=== PATIENT | female | born 1955 | race African-American/Black ===

== ENCOUNTER 2018-02-21 17:09 | Inpatient (IN) | payer OTHER ==
[2018-02-21] MEDS ORDERED: ONDANSETRON 4 MG/2 ML VIAL ONE (17:20)
--- NOTE | 2018-02-21 17:40 | PDOC ---
Attending Attestation - HPI HPI: 02/21/18 18:48 The patient is a 62 year old female, with a significant PMH of a recent GA, NSTEMI, asthma and HTN, who presents via ambulance to the emergency department of a witnessed seizure activity by family members this morning. The patient states she took her nebulizer treatment today because she felt SOB and went outside to smoke a cigarette. Shortly after smoking, the patient's family witness patient shaking uncontrollably on the couch with frothy drool for about 2 mins. Family reports patient did not return to normal baseline and came to the ER for further evaluation. She is currently vomiting, confused and not able to answer questions. The patient mentions she came in Oct 25 for similar presentation and had a GA. The patient denies chest pain, headache and dizziness. Denies fever, chills, nausea, vomit, diarrhea and constipation. Denies dysuria, frequency, urgency and hematuria. Allergies: NKDA Past surgical history: None reported Social history: Admits tobacco use PCP: None reported Documentation prepared by Fly Liu, acting as medical technicians for Vicenta Galvan MD. - Physicial Exam PE: 02/21/18 18:48 GENERAL: +Confused.Well developed, well nourished. No acute distress. HEENT: Normocephalic, atraumatic. PERRLA, EOMI. No conjunctival pallor. Sclera are non- icteric. Moist mucous membranes. Oropharynx is clear. NECK: Supple. Full ROM. No JVD. Carotid pulses 2+ and symmetric, without bruits. No thyromegaly. No lymphadenopathy. CARDIOVASCULAR: +Sinus tachycardia. No murmurs, rubs, or gallops. Distal pulses are 2+ and symmetric. PULMONARY: No evidence of respiratory distress. Lungs clear to auscultation bilaterally. No wheezing, rales or rhonchi. ABDOMINAL: +Protruding abdomen but Soft. Non-tender. No rebound or guarding. No organomegaly. Normoactive bowel sounds. MUSCULOSKELETAL Normal range of motion at all joints. No bony deformities or tenderness. No CVA tenderness. EXTREMITIES: No pitting edema No cyanosis. No clubbing. No edema. No calf tenderness. SKIN: Warm and dry. Normal capillary refill. No rashes. No jaundice. NEUROLOGICAL: +Confused. Cranial nerves 2-12 intact. No deficits to light touch and temperature in face, upper extremities and lower extremities. PSYCHIATRIC: Cooperative. Good eye contact. Appropriate mood and affect. Documentation prepared by Fly Liu, acting as medical technicians for Vicenta Galvan MD. <Fly Liu - Last Filed: 02/21/18 18:47> - Resident Resident Name: Javad Craig - ED Attending Attestation I have performed the following: I have examined & evaluated the patient, The case was reviewed & discussed with the resident, I agree w/resident's findings & plan, Exceptions are as noted - Medical Decision Making 02/21/18 19:19 62-year-old female who had a witnessed tonic-clonic seizure at home. Brought in by ambulance with altered mental status and actively vomiting. Past medical history significant for COPD, along time tobacco use, hypertension , and STEMI in October 2017 10/26/2017. She was admitted for altered mental status and found to have an elevated troponin. At that time, an echo showed normal LV function with ejection fraction 60-65%. She also had a brain MRI that showed moderate atrophy and bilateral cerebellar chronic lacunar infarcts ct scan of head today revealed No shift, no mass, mild atrophy, no acute infarct or bleed pt can answer simple questions,moves all extremities,has no facial droop but appears confused -she is afebrile,pulse ox =92% on room air -she has been hypertensive in range 160/78 -first ekg sinus tachy @ 102 bpm , trop is only 0.05 cbc is unremarkable lactic elevated at 7 Drug tox screen positive for only marijuana 02/21/18 19:22 02/21/18 19:28 pt loaded w johanne and admitted to telemetry 02/21/18 20:02 <Vicenta Galvan - Last Filed: 02/21/18 20:02>
[2018-02-21] MEDS ORDERED: SODIUM CHLORIDE 0.9% 500 ML INFUS.BAG IV ONE ×2 (17:51→18:55)
[2018-02-21] MEDS ORDERED: ONDANSETRON 4 MG/2 ML VIAL IVPUSH ONE (17:51)
[2018-02-21 18:10] LABS: BASO % 0.5 % (0-2.0); EOS % 1.1 % (0-4.5); HEMOGLOBIN 14.3 GM/dL (10.7-15.3); LYMPH % 46.6 % (8-40); MCH 28.3 pg (25.7-33.7); MCHC 32.4 g/dl (32.0-36.0); MEAN CELL VOLUME 87.5 fl (80-96); MEAN PLT VOLUME 7.7 fl (7.5-11.1); MONO % 9.7 % (3.8-10.2); NEUT % 42.1 % (42.8-82.8); PLATELET COUNT 239 K/MM3 (134-434); RBC 5.03 M/mm3 (3.60-5.2); RDW 14.8 % (11.6-15.6); WHITE BLOOD COUNT 6.5 K/mm3 (4.0-10.0)
[2018-02-21 18:14] LABS: URINE APPEARANCE SLCLOUDY; URINE BILIRUBIN NEGATIVE (<2.0 mg/dL); URINE COLOR LTYELLOW; URINE GLUCOSE (UA) NEGATIVE (NEGATIVE); URINE KETONE NEGATIVE (NEGATIVE); URINE LEUK ESTERASE NEGATIVE (NEGATIVE); URINE NITRITE NEGATIVE (NEGATIVE); URINE PROTEIN 2+ (NEGATIVE); URINE UROBILINOGEN NEGATIVE mg/dL (0.2-1.0)
[2018-02-21 18:28] LABS: EPI CELLS RARE /HPF (FEW); URINE BACTERIA MANY /hpf (NONE SEEN); URINE HYALINE CAST 10 /lpf; URINE MUCUS RARE
[2018-02-21 18:28] LABS: INR 1.1 (0.83-1.09)
[2018-02-21 18:34] LABS: COCAINE, UR NEGATIVE ng/ml (CUTOFF=300); METHADONE, UR NEGATIVE ng/ml (CUTOFF=300); OPIATES, URI NEGATIVE ng/ml (CUTOFF=300); PHENCYCLIDINE,URINE NEGATIVE ng/ml (CUTOFF=25); URINE AMPHETAMINES NEGATIVE ng/ml (CUTOFF=500); URINE BARBITURATES NEGATIVE ng/ml (CUTOFF=200); URINE BENZODIAZEPINES NEGATIVE ng/ml (CUTOFF=200)
[2018-02-21 18:50] LABS: ALBUMIN 3.8 g/dl (3.4-5.0); ALK PHOS 72 U/L (45-117); ANION GAP 13 MMOL/L (8-16); BILIRUBIN,TOTAL 0.3 mg/dL (0.2-1); BLOOD UREA NITROGEN 12 mg/dL (7-18); CALCIUM 8.8 mg/dL (8.5-10.1); CHLORIDE 108 mmol/L (98-107); CO2 19 mmol/L (21-32); GLUCOSE,RANDOM 117 mg/dL (74-106); LIPASE 103 U/L (73-393); MAGNESIUM 1.9 mg/dL (1.8-2.4); N-TERMINAL BNP 225.8 pg/ml (5-125); PHOSPHOROUS 3.2 mg/dL (2.5-4.9); POTASSIUM 3.8 mmol/L (3.5-5.1); SGOT/AST 16 U/L (15-37); SGPT/ALT 13 U/L (13-61); SODIUM 140 mmol/L (136-145); TOT PROT 7.7 g/dl (6.4-8.2)
--- NOTE | 2018-02-21 19:02 | PDOC ---
History of Present Illness - General Chief Complaint: Seizure Stated Complaint: SEIZURE Time Seen by Provider: 02/21/18 17:32 History Source: Patient, EMS, Family (Daughter at bedside after initial eval), Old Records Exam Limitations: Clinical Condition - History of Present Illness Initial Comments: HPI: 62 y/o female BIBEMS as ALS patient with altered mental status. EMS reports the pt had a witnessed two minute tonic-clonic seizure prior to unit arrival. Crew found the pt unresponsive but demonstrated localized withdrawal from painful stimuli. Pt was breathing spontaneously. Vitals were remarkable for hypertension and tachycardia. EKG was unremarkable for ectopy. BGL was within normal limits. Pt had a [place] several months ago. Unsure if pt is anticoagulated. No history of seizures. No family present at bedside. IV access established enroute. No medications administered. Pt met in resuscitation room. Pt vomiting but initially would not answer questions. Then only complained of coldness but would not answer direct questions. ABCs intact. Vitals obtained. Second IV access established and labs drawn. EKG obtained. Pt taken to CT scan for CT of Head stroke protocoled. MD and RN accompanied. After returning from radiology department, pts daughter and son-in-law were present in the department. Daughter reported her mother looked unwell all morning. This afternoon used a breathing treatment, stepped outside to smoke a cigarette, then came back into the house and sat on the couch. Daughter observed the pt loose muscle tone and began generalized shaking. Noted foaming at the mouth. Episode lasted approx. 2 min. Did not observe if mother lost control of bowel or bladder. Admitted here for similar symptoms on 10/26/2017 for similar symptoms, but family states no seizure-like activity at that time. Discharged with diagnosis of NSTEMI. PCP: Dr. Pete Bridges Hx: - EtOH: Family Denies - Tobacco: Family Endorses Current Smoker - Street Drugs: Family Denies Medical Hx: -CAD s/p NSTEMI (10/2017) - Asthma - DM - HTN Past History - Past Medical History Allergies/Adverse Reactions: Allergies Allergy/AdvReac Type Severity Reaction Status Date / Time No Known Allergies Allergy Verified 10/26/17 12:16 Home Medications: Ambulatory Orders Albuterol Sulfate Inhaler - [Ventolin HFA Inhaler -] 1 - 2 inh PO QID PRN #1 inhaler 10/31/17 Amlodipine Besylate [Norvasc -] 10 mg PO DAILY #30 tablet 10/31/17 Aspirin Coated [Ecotrin -] 81 mg PO DAILY #30 tablet.ec 10/31/17 Fexofenadine HCl [Toyin Allergy] 180 mg PO DAILY #30 tablet 10/31/17 Metoprolol Succinate [Toprol XL -] 25 mg PO DAILY #30 tab.sr.24h 10/31/17 Montelukast Sodium [Singulair] 10 mg PO DAILY #30 tablet 10/31/17 Potassium Chloride [K-Dur -] 20 meq PO DAILY 30 Days #30 tablet.er 10/31/17 levoFLOXacin [Levaquin -] 500 mg PO DAILY@0600 #2 tablet 10/31/17 predniSONE [Deltasone -] 30 mg PO DAILY #9 tablet 10/31/17 Asthma: Yes Cardiac Disorders: Yes (?heart murmur as child) COPD: No HTN: Yes - Suicide/Smoking/Psychosocial Hx Smoking History: Unknown if ever smoked Have you smoked in the past 12 months: No Number of Cigarettes Smoked Daily: 10 Information on smoking cessation initiated: No 'Breaking Loose' booklet given: 10/26/17 Hx Alcohol Use: No Drug/Substance Use Hx: No Substance Use Type: Marijuana Hx Substance Use Treatment: No (denies) Review of Systems - Review of Systems Able to Perform ROS?: No (Pt condition) *Physical Exam - Vital Signs Last Vital Signs Temp Pulse Resp BP Pulse Ox 98.1 F 92 H 17 173/103 H 96 02/21/18 17:10 02/21/18 18:54 02/21/18 18:54 02/21/18 18:54 02/21/18 18:54 - Physical Exam Comments: Constitutional: Well-developed, well-nourished, obese female alert to verbal but disoriented and unable to answer questions. Found on EMS stretcher and transferred to hospital stretcher. Head: Normocephalic. No obvious external signs of trauma. Eyes: Pupils 2mm and PERRL bilaterally. Sclerae white. NOSE: No nasal discharge. Cardiovascular: Tachycardic rate and regular rhythm. No murmur, rubs, clicks, or gallops. Peripheral pulses: Radial pulses full. Respiratory: Breathing unlabored. Equal chest rise and fall. Clear to auscultation bilaterally. No stridor, no wheezing, no rhonchi. Gastrointestinal: abdomen is soft, non-tender, non-distended. No overlying skin lesions or obvious signs of trauma. Neuro: Eyes open to verbal. Able to provide name and location but otherwise disoriented. Moving all four extremities spontaneously. Able to sit up in bed to vomit. No facial asymmetry. Moving all four extremities spontaneously. Unable to assess strength secondary to pt condition. Skin: Warm, dry, and intact. No bruising, rashes, or other lesions. Moderate Sedation - Procedure Monitoring Vital Signs: Procedure Monitoring Vital Signs Temperature 98.1 F 02/21/18 17:10 Pulse Rate 92 H 02/21/18 18:54 Respiratory Rate 17 02/21/18 18:54 Blood Pressure 173/103 H 02/21/18 18:54 O2 Sat by Pulse Oximetry (%) 96 02/21/18 18:54 ED Treatment Course - LABORATORY CBC & Chemistry Diagram: 02/21/18 17:56 02/21/18 17:56 - ADDITIONAL ORDERS Additional order review: Laboratory Results 02/21/18 02/21/18 02/21/18 18:05 18:05 18:00 PT with INR INR PTT (Actin FS) Sodium Potassium Chloride Carbon Dioxide Anion Gap BUN Creatinine Creat Clearance w eGFR Random Glucose Lactic Acid 7.7 H* Calcium Phosphorus Magnesium Total Bilirubin AST ALT Alkaline Phosphatase Creatine Kinase Troponin I B-Natriuretic Peptide Total Protein Albumin Lipase TSH Urine Color Ltyellow Urine Appearance Slcloudy Urine pH 5.0 Ur Specific [place] 1.015 Urine Protein 2+ H Urine Glucose (UA) Negative Urine Ketones Negative Urine Blood 2+ H Urine Nitrite Negative Urine Bilirubin Negative Urine Urobilinogen Negative Ur Leukocyte Esterase Negative Urine WBC (Auto) 2 Urine RBC (Auto) 1 Ur Epithelial Cells Rare Urine Bacteria Many Hyaline Casts 10 Urine Mucus Rare Salicylates Opiates Screen Negative Methadone Screen Negative Barbiturate Screen Negative Phencyclidine Screen Negative Ur Amphetamines Screen Negative MDMA (Ecstasy) Screen Negative Benzodiazepines Screen Negative Cocaine Screen Negative U Marijuana (THC) Screen Positive A* 02/21/18 02/21/18 02/21/18 17:56 17:56 17:56 PT with INR 13.00 INR 1.10 H PTT (Actin FS) Sodium 140 Potassium 3.8 Chloride 108 H Carbon Dioxide 19 L Anion Gap 13 BUN 12 Creatinine 1.0 Creat Clearance w eGFR 56.18 Random Glucose 117 H Lactic Acid Calcium 8.8 Phosphorus 3.2 Magnesium 1.9 Total Bilirubin 0.3 AST 16 ALT 13 Alkaline Phosphatase 72 Creatine Kinase 146 Troponin I 0.05 B-Natriuretic Peptide 225.8 H Total Protein 7.7 Albumin 3.8 Lipase 103 TSH 0.96 Urine Color Urine Appearance Urine pH Ur Specific [place] Urine Protein Urine Glucose (UA) Urine Ketones Urine Blood Urine Nitrite Urine Bilirubin Urine Urobilinogen Ur Leukocyte Esterase Urine WBC (Auto) Urine RBC (Auto) Ur Epithelial Cells Urine Bacteria Hyaline Casts Urine Mucus Salicylates 2.1 L Opiates Screen Methadone Screen Barbiturate Screen Phencyclidine Screen Ur Amphetamines Screen MDMA (Ecstasy) Screen Benzodiazepines Screen Cocaine Screen U Marijuana (THC) Screen 02/21/18 17:56 PT with INR INR PTT (Actin FS) 27.1 Sodium Potassium Chloride Carbon Dioxide Anion Gap BUN Creatinine Creat Clearance w eGFR Random Glucose Lactic Acid Calcium Phosphorus Magnesium Total Bilirubin AST ALT Alkaline Phosphatase Creatine Kinase Troponin I B-Natriuretic Peptide Total Protein Albumin Lipase TSH Urine Color Urine Appearance Urine pH Ur Specific [place] Urine Protein Urine Glucose (UA) Urine Ketones Urine Blood Urine Nitrite Urine Bilirubin Urine Urobilinogen Ur Leukocyte Esterase Urine WBC (Auto) Urine RBC (Auto) Ur Epithelial Cells Urine Bacteria Hyaline Casts Urine Mucus Salicylates Opiates Screen Methadone Screen Barbiturate Screen Phencyclidine Screen Ur Amphetamines Screen MDMA (Ecstasy) Screen Benzodiazepines Screen Cocaine Screen U Marijuana (THC) Screen 02/21/18 17:56 RBC 5.03 MCV 87.5 MCHC 32.4 RDW 14.8 MPV 7.7 Neutrophils % 42.1 L Lymphocytes % 46.6 H Monocytes % 9.7 Eosinophils % 1.1 D Basophils % 0.5 - RADIOLOGY Radiology Studies Ordered: Category Date Time Status HEAD CT (STROKE) [CT] Stat CT Scan 02/21/18 17:35 Taken CHEST X-RAY PORTABLE* [RAD] Stat Radiology 02/21/18 17:50 Taken - Medications Given in the ED: ED Medications Discontinued Medications Generic Name Dose Route Start Last Admin Trade Name Freq PRN Reason Stop Dose Admin Ondansetron HCl 4 mg 02/21/18 17:51 02/21/18 18:17 Zofran Injection IVPUSH 02/21/18 17:52 4 mg ONCE ONE Administration Sodium Chloride 1,000 ml 02/21/18 17:51 02/21/18 18:17 Normal Saline - IV 02/21/18 17:52 1,000 ml ONCE ONE Administration Medical Decision Making - Medical Decision Making *Reviewed vital signs, nursing notes, and prior visit documentation (if available). 62 y/o female presenting with altered mental status after witnessed tonic- clonic seizure activity. Has not returned to normal mental baseline, but intact ABCs. No h/o seizures. Family reports similar altered mental status episode in October 2017 when pt was disagnosed with NSTEMI. EKG revealed new flattened T waves in II and inverted T waves in III when compared to previous EKG dated 06/2017. Troponin and CK not elevated. Low suspicion for ACS. No appreciable neurologic deficits, but exam limited secondary to pt condition. CT of head unremarkable for acute intracranial process. Low suspicion for CVA. Family denies illicit drug use, but UDS positive for marijuana. CBC unremarkable for leukocytosis or anemia. CMP unremarkable for electrolyte derangement. Lactic acid elevated; possibly secondary to seizure activity. Will hydrate with IVFB and load with a gram of Keppra. Will admit for persistent altered mental status and new onset seizure in adult. 18:16 Telephone conversation with [facility]. CT unremarkable for acute process. 19:20 Telephone consultation with resident Dr. Trujillo. Verbally appraised of the pts HPI, ED course, and current plan of management. No additional orders requested. Pt to be admitted to telemetry on inpatient status by Dr. Brian. *DC/Admit/Observation/Transfer Diagnosis at time of Disposition: New onset seizure Altered mental status, unspecified Qualifiers: Altered mental status type: disorientation Qualified Code(s): R41.0 - Disorientation, unspecified - Discharge Dispostion Decision to Admit order: Yes - Referrals - Patient Instructions - Post Discharge Activity
[2018-02-21] MEDS ORDERED: levETIRAcetam 500 MG/5 ML INJECTION VIAL IVPB ONE ×2 (19:08→19:13)
[2018-02-21 19:21] LABS: ACETONE SERUM NEGATIVE (NEGATIVE)
--- NOTE | 2018-02-21 19:43 | PN ---
Teaching Attending Note Name of Resident: Omar Trujillo ATTENDING PHYSICIAN STATEMENT I saw and evaluated the patient. I reviewed the resident's note and discussed the case with the resident. I agree with the resident's findings and plan as documented. SUBJECTIVE: Patient is a 62 year old woman with a PMH of a recent NSTEMI, asthma and HTN, who presents via ambulance to the ER after a witnessed seizure activity by family members this morning. The patient states she took her nebulizer treatment today because she felt SOB and went outside to smoke a cigarette. Shortly after smoking, the patient's family witness patient shaking uncontrollably on the couch with frothy drool for about 2 mins. Family reports patient did not return to normal baseline and came to the ER for further evaluation. She is currently vomiting, confused and not able to answer questions. The patient mentions she came in Oct 25 for similar presentation and had a [place]. The patient denies chest pain, headache, dizziness, fever, chills , nausea, vomit, diarrhea or dysuria. OBJECTIVE: Somnolent but arousable Vital Signs Period Temp Pulse Resp BP Sys/[place] Pulse Ox Last 24 Hr 98.1 F 92-92 17-18 167-173/98-103 92-96 HEENT: No Jaundice, eye redness or discharge, PERRLA, EOMI. Normocephalic, atraumatic. Impaired vision; External ears are normal. No nasal discharge. Neck: Supple, nontender. No palpable adenopathy or thyromegaly. No JVD Chest: Good effort. Clear to auscultation and percussion. Heart: Regular. No S3, rub or murmur Abdomen: Not distended, soft, nontender and no HSM. No rebound or guarding. Normoactive bowel sounds. Ext: Peripheral pulses intact. No leg edema. Skin: Warm and dry. No petechiae, rash or ecchymosis. Neuro: Somnolent but arousable. Oriented person and place. CN 2-12 grossly intact. Sensation grossly intact in all four extremities and DTR are symmetric. Home Medications Medication Instructions Recorded Albuterol Sulfate Inhaler - 1 - 2 inh PO QID PRN #1 inhaler 10/31/17 [Ventolin HFA Inhaler -] Amlodipine Besylate [Norvasc -] 10 mg PO DAILY #30 tablet 10/31/17 Aspirin Coated [Ecotrin -] 81 mg PO DAILY #30 tablet.ec 10/31/17 Fexofenadine HCl [Toyin Allergy] 180 mg PO DAILY #30 tablet 10/31/17 Metoprolol Succinate [Toprol XL -] 25 mg PO DAILY #30 tab.sr.24h 10/31/17 Montelukast Sodium [Singulair] 10 mg PO DAILY #30 tablet 10/31/17 Potassium Chloride [K-Dur -] 20 meq PO DAILY 30 Days #30 10/31/17 tablet.er levoFLOXacin [Levaquin -] 500 mg PO DAILY@0600 #2 tablet 10/31/17 predniSONE [Deltasone -] 30 mg PO DAILY #9 tablet 10/31/17 Abnormal Lab Results 02/21/18 02/21/18 02/21/18 17:56 17:56 17:56 Neutrophils % 42.1 L Lymphocytes % 46.6 H INR 1.10 H Chloride Carbon Dioxide Random Glucose Lactic Acid B-Natriuretic Peptide Urine Protein Urine Blood Salicylates Acetaminophen < 2.0 L U Marijuana (THC) Screen Acetone, Qual Negative L 02/21/18 02/21/18 02/21/18 17:56 18:00 18:05 Neutrophils % Lymphocytes % INR Chloride 108 H Carbon Dioxide 19 L Random Glucose 117 H Lactic Acid 7.7 H* B-Natriuretic Peptide 225.8 H Urine Protein 2+ H Urine Blood 2+ H Salicylates 2.1 L Acetaminophen U Marijuana (THC) Screen Acetone, Qual 02/21/18 18:05 Neutrophils % Lymphocytes % INR Chloride Carbon Dioxide Random Glucose Lactic Acid B-Natriuretic Peptide Urine Protein Urine Blood Salicylates Acetaminophen U Marijuana (THC) Screen Positive A* Acetone, Qual ASSESSMENT AND PLAN: 1. New onset seizure/AMS - Etiology unclear. Had marijuana in her urine. Started on Keppra in the ER and head CT is negative. EKG showed sinus tachycardia but no significant ST-T changes. Needs a spinal tap, EEG and neurology consult. Will continue neurochecks, seizure precautions, and fall precautions. Got 2 liters bolus of NS in the ER. Continue IV NS and trend lactic acid. For uncontrolled hypertension, will restart home antihypertensive drugs to ultimately attain normotension. Nonpharmacologic measures to control hypertension like weight loss, salt restriction and exercise discussed. 2. Tobacco Use We will provide patient all the necessary assistance to facilitate smoking cessation and prescribe Nicotine patch. 3. DVT prophylaxis - Lovenox 40 mg SQ q 24 hours. 4. Advance directives - Full code
--- NOTE | 2018-02-21 19:51 | HP ---
CHIEF COMPLAINT: PCP: Dr. Freeman HISTORY OF PRESENT ILLNESS: Pt lethargic. Hx obtained from EMR, ED notes, and family members 62 yo F w/ PMH of a recent NSTEMI (10/2017), asthma, COPD, and HTN, p/w witnessed seizure activity by family members this morning. The patient states she took her nebulizer treatment today because she felt SOB and went outside to smoke a cigarette. Shortly after smoking, the patient's family witnessed patient having eye twitching, leg kicking, and shaking uncontrollably on the couch with frothy drool for about 2 mins. No tongue biting or incontinence was noted. Family reports patient did not return to normal baseline and came to the ER for further evaluation. She is currently vomiting, confused and not able to answer questions. Pt was noted to have similar sxs of confusion back in Oct 25 when she was admitted for NSTEMI. At that time, an echo showed normal LV function with ejection fraction 60-65%. She also had a brain MRI that showed moderate atrophy and bilateral cerebellar chronic lacunar infarcts. Family denies pt having hx of seizures, recent illnesses, herbal supplements, cp, headache, dizziness, fever , chills, n/v/d or urinary sxs and states Pt has other white been in her usual state of health. Of note, pt has trouble seeing w/o glasses and has been found in the past to take the wrong meds or too many meds by mistake. Family does not know pt med list but will try to obtain it. ER course was notable for: (1) 2L NS, 1g IV keppra, zofran (2) Head CT no acute pathology (3)Drug tox screen positive for only marijuana hypertensive in range 180s/100s, EKG revealed new flattened T waves in II and inverted T waves in III when compared to previous EKG dated 10/26/2017. , trop is only 0.05, Lactic 7.7 Recent Travel: PAST MEDICAL HISTORY: 15 yr ago "blood clot" in foot after a foot frx? 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 Family History: Allergies No Known Allergies Allergy (Verified 10/26/17 12:16) HOME MEDICATIONS: Home Medications Medication Instructions Recorded Albuterol Sulfate Inhaler - 1 - 2 inh PO QID PRN #1 inhaler 10/31/17 [Ventolin HFA Inhaler -] Amlodipine Besylate [Norvasc -] 10 mg PO DAILY #30 tablet 10/31/17 Aspirin Coated [Ecotrin -] 81 mg PO DAILY #30 tablet.ec 10/31/17 Fexofenadine HCl [Toyin Allergy] 180 mg PO DAILY #30 tablet 10/31/17 Metoprolol Succinate [Toprol XL -] 25 mg PO DAILY #30 tab.sr.24h 10/31/17 Montelukast Sodium [Singulair] 10 mg PO DAILY #30 tablet 10/31/17 Potassium Chloride [K-Dur -] 20 meq PO DAILY 30 Days #30 10/31/17 tablet.er levoFLOXacin [Levaquin -] 500 mg PO DAILY@0600 #2 tablet 10/31/17 predniSONE [Deltasone -] 30 mg PO DAILY #9 tablet 10/31/17 REVIEW OF SYSTEMS as per HPI PHYSICAL EXAMINATION Vital Signs - 24 hr 02/21/18 02/21/18 02/21/18 17:10 18:54 19:20 Temperature 98.1 F 99.2 F Pulse Rate 92 H Pulse Rate [ 92 H 103 H Left Apical] Respiratory 18 17 22 H Rate Blood Pressure 167/98 Blood Pressure 173/103 H 180/104 H [Right Arm] O2 Sat by Pulse 92 L 96 98 Oximetry (%) GENERAL: Well-developed, well-nourished, obese female alert to verbal. appears confused but oriented x 2 HEAD: NCAT EYES: Pupils equal, round and reactive to light, extraocular movements intact, sclera anicteric, conjunctiva clear. No lid lag. EARS, NOSE, THROAT: Ears normal, nares patent, oropharynx clear without exudates. MMM NECK: Normal range of motion, supple without lymphadenopathy, JVD, or masses. LUNGS: CTAB HEART: Tachycardic rate and regular rhythm, normal S1 and S2 without m/r/g ABDOMEN: Soft, NTND, normoactive bowel sounds, no guarding, no rebound, no masses. MUSCULOSKELETAL: Normal range of motion at all joints. No bony deformities or tenderness. UPPER EXTREMITIES: 2+ pulses, warm, well-perfused. No cyanosis. No clubbing. No peripheral edema. LOWER EXTREMITIES: 2+ pulses, warm, well-perfused. No calf tenderness. No peripheral edema. NEUROLOGICAL: Eyes open to verbal. Able to provide name and location but otherwise disoriented. Moving all four extremities spontaneously. No facial asymmetry. Moving all four extremities spontaneously. Unable to assess strength secondary to pt condition. SKIN: Warm, dry, normal turgor, no rashes or lesions noted, normal capillary refill. Laboratory Results - last 24 hr 02/21/18 02/21/18 02/21/18 17:56 17:56 17:56 WBC 6.5 RBC 5.03 Hgb 14.3 Hct 44.0 MCV 87.5 MCH 28.3 MCHC 32.4 RDW 14.8 Plt Count 239 MPV 7.7 Absolute Neuts (auto) 2.7 Neutrophils % 42.1 L Lymphocytes % 46.6 H Monocytes % 9.7 Eosinophils % 1.1 D Basophils % 0.5 Nucleated RBC % 0 PT with INR INR PTT (Actin FS) 27.1 Sodium Potassium Chloride Carbon Dioxide Anion Gap BUN Creatinine Creat Clearance w eGFR Random Glucose Lactic Acid Calcium Phosphorus Magnesium Total Bilirubin AST ALT Alkaline Phosphatase Creatine Kinase 146 Troponin I 0.05 B-Natriuretic Peptide Total Protein Albumin Lipase TSH Urine Color Urine Appearance Urine pH Ur Specific [place] Urine Protein Urine Glucose (UA) Urine Ketones Urine Blood Urine Nitrite Urine Bilirubin Urine Urobilinogen Ur Leukocyte Esterase Urine WBC (Auto) Urine RBC (Auto) Ur Epithelial Cells Urine Bacteria Hyaline Casts Urine Mucus Salicylates Opiates Screen Methadone Screen Acetaminophen < 2.0 L Barbiturate Screen Phencyclidine Screen Ur Amphetamines Screen MDMA (Ecstasy) Screen Benzodiazepines Screen Cocaine Screen U Marijuana (THC) Screen Alcohol, Quantitative < 3.0 Acetone, Qual Negative L Blood Type Antibody Screen 02/21/18 02/21/18 02/21/18 17:56 17:56 17:56 WBC RBC Hgb Hct MCV MCH MCHC RDW Plt Count MPV Absolute Neuts (auto) Neutrophils % Lymphocytes % Monocytes % Eosinophils % Basophils % Nucleated RBC % PT with INR 13.00 INR 1.10 H PTT (Actin FS) Sodium 140 Potassium 3.8 Chloride 108 H Carbon Dioxide 19 L Anion Gap 13 BUN 12 Creatinine 1.0 Creat Clearance w eGFR 56.18 Random Glucose 117 H Lactic Acid Calcium 8.8 Phosphorus 3.2 Magnesium 1.9 Total Bilirubin 0.3 AST 16 ALT 13 Alkaline Phosphatase 72 Creatine Kinase Troponin I B-Natriuretic Peptide 225.8 H Total Protein 7.7 Albumin 3.8 Lipase 103 TSH 0.96 Urine Color Urine Appearance Urine pH Ur Specific [place] Urine Protein Urine Glucose (UA) Urine Ketones Urine Blood Urine Nitrite Urine Bilirubin Urine Urobilinogen Ur Leukocyte Esterase Urine WBC (Auto) Urine RBC (Auto) Ur Epithelial Cells Urine Bacteria Hyaline Casts Urine Mucus Salicylates 2.1 L Opiates Screen Methadone Screen Acetaminophen Barbiturate Screen Phencyclidine Screen Ur Amphetamines Screen MDMA (Ecstasy) Screen Benzodiazepines Screen Cocaine Screen U Marijuana (THC) Screen Alcohol, Quantitative Acetone, Qual Blood Type AB POSITIVE Antibody Screen Negative 02/21/18 02/21/18 02/21/18 18:00 18:05 18:05 WBC RBC Hgb Hct MCV MCH MCHC RDW Plt Count MPV Absolute Neuts (auto) Neutrophils % Lymphocytes % Monocytes % Eosinophils % Basophils % Nucleated RBC % PT with INR INR PTT (Actin FS) Sodium Potassium Chloride Carbon Dioxide Anion Gap BUN Creatinine Creat Clearance w eGFR Random Glucose Lactic Acid 7.7 H* Calcium Phosphorus Magnesium Total Bilirubin AST ALT Alkaline Phosphatase Creatine Kinase Troponin I B-Natriuretic Peptide Total Protein Albumin Lipase TSH Urine Color Ltyellow Urine Appearance Slcloudy Urine pH 5.0 Ur Specific [place] 1.015 Urine Protein 2+ H Urine Glucose (UA) Negative Urine Ketones Negative Urine Blood 2+ H Urine Nitrite Negative Urine Bilirubin Negative Urine Urobilinogen Negative Ur Leukocyte Esterase Negative Urine WBC (Auto) 2 Urine RBC (Auto) 1 Ur Epithelial Cells Rare Urine Bacteria Many Hyaline Casts 10 Urine Mucus Rare Salicylates Opiates Screen Negative Methadone Screen Negative Acetaminophen Barbiturate Screen Negative Phencyclidine Screen Negative Ur Amphetamines Screen Negative MDMA (Ecstasy) Screen Negative Benzodiazepines Screen Negative Cocaine Screen Negative U Marijuana (THC) Screen Positive A* Alcohol, Quantitative Acetone, Qual Blood Type Antibody Screen , ASSESSMENT/PLAN: 62 yo F w/ PMH of a recent NSTEMI (10/2017), asthma, COPD, and HTN, p/w witnessed new onset seizure activity by family members this morning. New onset seizure/AMS - Etiology unclear. head CT is negative. U tox screen positive for only marijuana s/p 2L NS, 1g IV keppra, zofran in the ED EKG revealed new flattened T waves in II and inverted T waves in III when compared to previous EKG dated 10/26/2017. trop is only 0.05, will rpt trop to r/o ACS Lactic 7.7 likely 2/2 seizure trend lactic acid NS 75 cc/hr neurochecks, seizure precautions, and fall precautions neurology consult will likely need a spinal tap, EEG and MRI 500 keppra BID for now, will likely need adjustment will f/w neurology recs Family does not know pt med list but will try to obtain it. will need extensive med rec to r/o possible causes of seizure hypertensive in range 180s/100s - improving now 150s cont to moniotor will restart home antihypertensive drugs and when pt can tolerate PO restart home meds when meds are reconciled FEN NS 75 cc replete prn NPO DVT prophylaxis - Lovenox 40 mg SQ q 24 hours. Full code Dispo tele Visit type - Emergency Visit Emergency Visit: Yes ED Registration Date: 02/21/18 Care time: The patient presented to the Emergency Department on the above date and was hospitalized for further evaluation of their emergent condition. - New Patient This patient is new to me today: Yes Date on this admission: 02/22/18 - Critical Care Critical Care patient: No
[2018-02-21] MEDS ORDERED: INSULIN SLIDING SCALE (NOVOLOG) 1 VIAL SQ SCH (22:00)
[2018-02-21 22:13] VITALS: BMI 25.0
[2018-02-21] MEDS: SODIUM CHLORIDE 1,000 ML IV SCH (23:57)
[2018-02-21] MEDS: ENOXAPARIN NA (PORCINE) 40 MG/0.4 ML DISP.SYRIN SQ SCH (23:57)
[2018-02-22 06:50] LABS: BASO % 0.5 % (0-2.0); EOS % 0.5 % (0-4.5); HEMATOCRIT 38.5 % (32.4-45.2); HEMOGLOBIN 12.6 GM/dL (10.7-15.3); LYMPH % 43.8 % (8-40); MCH 28.5 pg (25.7-33.7); MCHC 32.7 g/dl (32.0-36.0); MEAN CELL VOLUME 86.9 fl (80-96); MEAN PLT VOLUME 7.7 fl (7.5-11.1); MONO % 7.8 % (3.8-10.2); NEUT % 47.4 % (42.8-82.8); PLATELET COUNT 214 K/MM3 (134-434); RBC 4.43 M/mm3 (3.60-5.2); RDW 14.8 % (11.6-15.6); WHITE BLOOD COUNT 9.3 K/mm3 (4.0-10.0)
[2018-02-22 07:19] LABS: ALBUMIN 3.2 g/dl (3.4-5.0); ALK PHOS 58 U/L (45-117); ANION GAP 8 MMOL/L (8-16); BILIRUBIN,TOTAL 0.5 mg/dL (0.2-1); BLOOD UREA NITROGEN 8 mg/dL (7-18); CALCIUM 8.3 mg/dL (8.5-10.1); CHLORIDE 110 mmol/L (98-107); CO2 23 mmol/L (21-32); CREATININE 0.8 mg/dL (0.55-1.3); GLUCOSE,RANDOM 87 mg/dL (74-106); MAGNESIUM 1.8 mg/dL (1.8-2.4); PHOSPHOROUS 3.8 mg/dL (2.5-4.9); POTASSIUM 3.5 mmol/L (3.5-5.1); SGOT/AST 16 U/L (15-37); SGPT/ALT 13 U/L (13-61); SODIUM 141 mmol/L (136-145); TOT PROT 6.6 g/dl (6.4-8.2)
--- NOTE | 2018-02-22 09:23 | PN ---
Physical Exam: SUBJECTIVE: Patient seen and examined at bedside this morning. She remembers coughing that led up to the syncopal episode, and waking up in bed after the episode. She denies headache, changes in vision, weakness in bilateral upper and lower extremities. OBJECTIVE: Vital Signs Period Temp Pulse Resp BP Sys/[place] Pulse Ox Last 24 Hr 98.1 F-99.2 F 90-105 17-22 134-180/67-104 92-100 GENERAL: The patient is awake, alert, and oriented to person, place, and time, in no acute distress. HEAD: Normal with no signs of trauma. EYES: PERRL, extraocular movements intact, sclera anicteric. ENT: Oropharynx clear without exudates, moist mucous membranes. NECK: Supple without lymphadenopathy LUNGS: Breath sounds equal, clear to auscultation bilaterally. No wheezes, no crackles. No accessory muscle use. HEART: Regular rate and rhythm, S1, S2 without murmur, rub or gallop. ABDOMEN: Soft, nontender, nondistended. Normoactive bowel sounds X4 quadrants. No guarding, no rebound tenderness. EXTREMITIES: 2+ radial and doralis pedis pulses b/l. Warm, well-perfused. No lower extremity edema b/l. NEUROLOGICAL: Cranial nerves II through XII grossly intact. Normal speech. Good muscle tone B/L. Strength 5/5 b/l upper and lower extremities. Sensation intact b/l upper and lower extremities. PSYCH: Mood and affect appropriate upon my encounter today. SKIN: Warm, dry. Laboratory Results - last 24 hr 02/21/18 02/21/18 02/21/18 17:56 17:56 17:56 WBC 6.5 RBC 5.03 Hgb 14.3 Hct 44.0 MCV 87.5 MCH 28.3 MCHC 32.4 RDW 14.8 Plt Count 239 MPV 7.7 Absolute Neuts (auto) 2.7 Neutrophils % 42.1 L Lymphocytes % 46.6 H Monocytes % 9.7 Eosinophils % 1.1 D Basophils % 0.5 Nucleated RBC % 0 PT with INR INR PTT (Actin FS) 27.1 Sodium Potassium Chloride Carbon Dioxide Anion Gap BUN Creatinine Creat Clearance w eGFR POC Glucometer Random Glucose Lactic Acid Calcium Phosphorus Magnesium Total Bilirubin AST ALT Alkaline Phosphatase Creatine Kinase 146 Troponin I 0.05 B-Natriuretic Peptide Total Protein Albumin Lipase TSH Urine Color Urine Appearance Urine pH Ur Specific [place] Urine Protein Urine Glucose (UA) Urine Ketones Urine Blood Urine Nitrite Urine Bilirubin Urine Urobilinogen Ur Leukocyte Esterase Urine WBC (Auto) Urine RBC (Auto) Ur Epithelial Cells Urine Bacteria Hyaline Casts Urine Mucus Salicylates Opiates Screen Methadone Screen Acetaminophen < 2.0 L Barbiturate Screen Phencyclidine Screen Ur Amphetamines Screen MDMA (Ecstasy) Screen Benzodiazepines Screen Cocaine Screen U Marijuana (THC) Screen Alcohol, Quantitative < 3.0 Acetone, Qual Negative L Blood Type Antibody Screen 02/21/18 02/21/18 02/21/18 17:56 17:56 17:56 WBC RBC Hgb Hct MCV MCH MCHC RDW Plt Count MPV Absolute Neuts (auto) Neutrophils % Lymphocytes % Monocytes % Eosinophils % Basophils % Nucleated RBC % PT with INR 13.00 INR 1.10 H PTT (Actin FS) Sodium 140 Potassium 3.8 Chloride 108 H Carbon Dioxide 19 L Anion Gap 13 BUN 12 Creatinine 1.0 Creat Clearance w eGFR 56.18 POC Glucometer Random Glucose 117 H Lactic Acid Calcium 8.8 Phosphorus 3.2 Magnesium 1.9 Total Bilirubin 0.3 AST 16 ALT 13 Alkaline Phosphatase 72 Creatine Kinase Troponin I B-Natriuretic Peptide 225.8 H Total Protein 7.7 Albumin 3.8 Lipase 103 TSH 0.96 Urine Color Urine Appearance Urine pH Ur Specific [place] Urine Protein Urine Glucose (UA) Urine Ketones Urine Blood Urine Nitrite Urine Bilirubin Urine Urobilinogen Ur Leukocyte Esterase Urine WBC (Auto) Urine RBC (Auto) Ur Epithelial Cells Urine Bacteria Hyaline Casts Urine Mucus Salicylates 2.1 L Opiates Screen Methadone Screen Acetaminophen Barbiturate Screen Phencyclidine Screen Ur Amphetamines Screen MDMA (Ecstasy) Screen Benzodiazepines Screen Cocaine Screen U Marijuana (THC) Screen Alcohol, Quantitative Acetone, Qual Blood Type AB POSITIVE Antibody Screen Negative 02/21/18 02/21/18 02/21/18 18:00 18:05 18:05 WBC RBC Hgb Hct MCV MCH MCHC RDW Plt Count MPV Absolute Neuts (auto) Neutrophils % Lymphocytes % Monocytes % Eosinophils % Basophils % Nucleated RBC % PT with INR INR PTT (Actin FS) Sodium Potassium Chloride Carbon Dioxide Anion Gap BUN Creatinine Creat Clearance w eGFR POC Glucometer Random Glucose Lactic Acid 7.7 H* Calcium Phosphorus Magnesium Total Bilirubin AST ALT Alkaline Phosphatase Creatine Kinase Troponin I B-Natriuretic Peptide Total Protein Albumin Lipase TSH Urine Color Ltyellow Urine Appearance Slcloudy Urine pH 5.0 Ur Specific [place] 1.015 Urine Protein 2+ H Urine Glucose (UA) Negative Urine Ketones Negative Urine Blood 2+ H Urine Nitrite Negative Urine Bilirubin Negative Urine Urobilinogen Negative Ur Leukocyte Esterase Negative Urine WBC (Auto) 2 Urine RBC (Auto) 1 Ur Epithelial Cells Rare Urine Bacteria Many Hyaline Casts 10 Urine Mucus Rare Salicylates Opiates Screen Negative Methadone Screen Negative Acetaminophen Barbiturate Screen Negative Phencyclidine Screen Negative Ur Amphetamines Screen Negative MDMA (Ecstasy) Screen Negative Benzodiazepines Screen Negative Cocaine Screen Negative U Marijuana (THC) Screen Positive A* Alcohol, Quantitative Acetone, Qual Blood Type Antibody Screen 02/21/18 02/21/18 02/21/18 22:27 22:45 22:45 WBC RBC Hgb Hct MCV MCH MCHC RDW Plt Count MPV Absolute Neuts (auto) Neutrophils % Lymphocytes % Monocytes % Eosinophils % Basophils % Nucleated RBC % PT with INR INR PTT (Actin FS) Sodium Potassium Chloride Carbon Dioxide Anion Gap BUN Creatinine Creat Clearance w eGFR POC Glucometer 111 Random Glucose Lactic Acid Cancelled Calcium Phosphorus Magnesium Total Bilirubin AST ALT Alkaline Phosphatase Creatine Kinase Cancelled Troponin I Cancelled B-Natriuretic Peptide Total Protein Albumin Lipase TSH Urine Color Urine Appearance Urine pH Ur Specific [place] Urine Protein Urine Glucose (UA) Urine Ketones Urine Blood Urine Nitrite Urine Bilirubin Urine Urobilinogen Ur Leukocyte Esterase Urine WBC (Auto) Urine RBC (Auto) Ur Epithelial Cells Urine Bacteria Hyaline Casts Urine Mucus Salicylates Opiates Screen Methadone Screen Acetaminophen Barbiturate Screen Phencyclidine Screen Ur Amphetamines Screen MDMA (Ecstasy) Screen Benzodiazepines Screen Cocaine Screen U Marijuana (THC) Screen Alcohol, Quantitative Acetone, Qual Blood Type Antibody Screen 02/21/18 02/21/18 02/22/18 23:40 23:40 05:30 WBC 9.3 RBC 4.43 Hgb 12.6 Hct 38.5 MCV 86.9 MCH 28.5 MCHC 32.7 RDW 14.8 Plt Count 214 MPV 7.7 Absolute Neuts (auto) 4.4 Neutrophils % 47.4 Lymphocytes % 43.8 H Monocytes % 7.8 Eosinophils % 0.5 Basophils % 0.5 Nucleated RBC % 0 PT with INR INR PTT (Actin FS) Sodium Potassium Chloride Carbon Dioxide Anion Gap BUN Creatinine Creat Clearance w eGFR POC Glucometer Random Glucose Lactic Acid 0.9 Calcium Phosphorus Magnesium Total Bilirubin AST ALT Alkaline Phosphatase Creatine Kinase 139 Troponin I 0.09 H B-Natriuretic Peptide Total Protein Albumin Lipase TSH Urine Color Urine Appearance Urine pH Ur Specific [place] Urine Protein Urine Glucose (UA) Urine Ketones Urine Blood Urine Nitrite Urine Bilirubin Urine Urobilinogen Ur Leukocyte Esterase Urine WBC (Auto) Urine RBC (Auto) Ur Epithelial Cells Urine Bacteria Hyaline Casts Urine Mucus Salicylates Opiates Screen Methadone Screen Acetaminophen Barbiturate Screen Phencyclidine Screen Ur Amphetamines Screen MDMA (Ecstasy) Screen Benzodiazepines Screen Cocaine Screen U Marijuana (THC) Screen Alcohol, Quantitative Acetone, Qual Blood Type Antibody Screen 02/22/18 02/22/18 05:30 06:20 WBC RBC Hgb Hct MCV MCH MCHC RDW Plt Count MPV Absolute Neuts (auto) Neutrophils % Lymphocytes % Monocytes % Eosinophils % Basophils % Nucleated RBC % PT with INR INR PTT (Actin FS) Sodium 141 Potassium 3.5 Chloride 110 H Carbon Dioxide 23 Anion Gap 8 BUN 8 Creatinine 0.8 Creat Clearance w eGFR > 60 POC Glucometer 87 Random Glucose 87 Lactic Acid Calcium 8.3 L Phosphorus 3.8 Magnesium 1.8 Total Bilirubin 0.5 AST 16 ALT 13 Alkaline Phosphatase 58 Creatine Kinase Troponin I 0.10 H B-Natriuretic Peptide Total Protein 6.6 Albumin 3.2 L Lipase TSH Urine Color Urine Appearance Urine pH Ur Specific [place] Urine Protein Urine Glucose (UA) Urine Ketones Urine Blood Urine Nitrite Urine Bilirubin Urine Urobilinogen Ur Leukocyte Esterase Urine WBC (Auto) Urine RBC (Auto) Ur Epithelial Cells Urine Bacteria Hyaline Casts Urine Mucus Salicylates Opiates Screen Methadone Screen Acetaminophen Barbiturate Screen Phencyclidine Screen Ur Amphetamines Screen MDMA (Ecstasy) Screen Benzodiazepines Screen Cocaine Screen U Marijuana (THC) Screen Alcohol, Quantitative Acetone, Qual Blood Type Antibody Screen Active Medications Generic Name Dose Route Start Last Admin Trade Name Freq PRN Reason Stop Dose Admin Enoxaparin Sodium 40 mg 02/21/18 22:00 02/21/18 23:57 Lovenox - SQ 40 mg DAILY KOJO Administration Sodium Chloride 1,000 mls @ 75 mls/hr 02/21/18 22:00 02/21/18 23:57 Normal Saline - IV 75 mls/hr ASDIR KOJO Administration Levetiracetam 500 mg 02/22/18 10:00 Keppra Injection - IVPB BID KOJO ASSESSMENT/PLAN: Patient is a 62 year old female with history of NSTEMI (10/2017), hypertension, asthma, COPD, presents after a witnessed seizure. Seizure -CT head negative for acute intracranial pathology. -F/U MRI -F/U EEG -Keppra 500mg IV BID (patient received Keppra 1000mg IV loading dose in ED -F/U neurology consult (Dr. Kuo) Hypertension -Losartan 25mg PO daily -Diltiazem 120mg PO dialy Asthma - Currently not in exacerbation - Monte[place]ukast 10mg PO daily CAD, hx NSTEMI -Troponins 0.05 -> 0.09 -> 0.10 -> 0.09 -Reinstate Aspirin 81mg daily -F/U Cardiology consult (Dr. Long) FEN -No IV fluids. Encourage judicious oral hydration -Follow CMP -Regular diet Prophylaxis -Lovenox 40u subq daily Disposition -Continue care in medical surgical floor Visit type - Emergency Visit Emergency Visit: Yes ED Registration Date: 02/21/18 Care time: The patient presented to the Emergency Department on the above date and was hospitalized for further evaluation of their emergent condition. - New Patient This patient is new to me today: Yes Date on this admission: 02/22/18 - Critical Care Critical Care patient: No - Discharge Referral Referred to [facility] No
[2018-02-22] MEDS: levETIRAcetam 500 MG/5 ML INJECTION VIAL IVPB SCH ×2 (10:25→21:51)
[2018-02-22] MEDS: ENOXAPARIN NA (PORCINE) 40 MG/0.4 ML DISP.SYRIN SQ SCH (10:25)
--- NOTE | 2018-02-22 14:20 | PN ---
Teaching Attending Note Name of Resident: Samuel Gomez ATTENDING PHYSICIAN STATEMENT I saw and evaluated the patient. I reviewed the resident's note and discussed the case with the resident. I agree with the resident's findings and plan as documented. SUBJECTIVE: Feels well - no recollection of events preceding admission. Last memory is being at home and subsequent memory of waking up in hospital. Denies preceding chest pain/palpitations/lightheadedness. No weakness/numbness/tingling /visual disturbance. OBJECTIVE: Afebrile, Hemodynamically Stable. Last Vital Signs Temp Pulse Resp BP Pulse Ox 98.5 F 90 16 137/79 95 02/22/18 10:00 02/22/18 10:00 02/22/18 10:00 02/22/18 10:02/22/18 09:00 HEENT - Atruamatic, Normocephalic Heart - S1. S2, RRR Lungs - clear to auscultation. No crackles/wheeze. Abdomen - Soft, non-tender. Bowel Sounds normal. Neuro - AAO x 3. Tone/Power normal all 4 extremities. Laboratory Results - last 24 hr 02/21/18 02/21/18 02/21/18 17:56 17:56 17:56 WBC 6.5 RBC 5.03 Hgb 14.3 Hct 44.0 MCV 87.5 MCH 28.3 MCHC 32.4 RDW 14.8 Plt Count 239 MPV 7.7 Absolute Neuts (auto) 2.7 Neutrophils % 42.1 L Lymphocytes % 46.6 H Monocytes % 9.7 Eosinophils % 1.1 D Basophils % 0.5 Nucleated RBC % 0 PT with INR INR PTT (Actin FS) 27.1 Sodium Potassium Chloride Carbon Dioxide Anion Gap BUN Creatinine Creat Clearance w eGFR POC Glucometer Random Glucose Lactic Acid Calcium Phosphorus Magnesium Total Bilirubin AST ALT Alkaline Phosphatase Creatine Kinase 146 Troponin I 0.05 B-Natriuretic Peptide Total Protein Albumin Lipase TSH Urine Color Urine Appearance Urine pH Ur Specific [place] Urine Protein Urine Glucose (UA) Urine Ketones Urine Blood Urine Nitrite Urine Bilirubin Urine Urobilinogen Ur Leukocyte Esterase Urine WBC (Auto) Urine RBC (Auto) Ur Epithelial Cells Urine Bacteria Hyaline Casts Urine Mucus Salicylates Opiates Screen Methadone Screen Acetaminophen < 2.0 L Barbiturate Screen Phencyclidine Screen Ur Amphetamines Screen MDMA (Ecstasy) Screen Benzodiazepines Screen Cocaine Screen U Marijuana (THC) Screen Alcohol, Quantitative < 3.0 Acetone, Qual Negative L Blood Type Antibody Screen 02/21/18 02/21/18 02/21/18 17:56 17:56 17:56 WBC RBC Hgb Hct MCV MCH MCHC RDW Plt Count MPV Absolute Neuts (auto) Neutrophils % Lymphocytes % Monocytes % Eosinophils % Basophils % Nucleated RBC % PT with INR 13.00 INR 1.10 H PTT (Actin FS) Sodium 140 Potassium 3.8 Chloride 108 H Carbon Dioxide 19 L Anion Gap 13 BUN 12 Creatinine 1.0 Creat Clearance w eGFR 56.18 POC Glucometer Random Glucose 117 H Lactic Acid Calcium 8.8 Phosphorus 3.2 Magnesium 1.9 Total Bilirubin 0.3 AST 16 ALT 13 Alkaline Phosphatase 72 Creatine Kinase Troponin I B-Natriuretic Peptide 225.8 H Total Protein 7.7 Albumin 3.8 Lipase 103 TSH 0.96 Urine Color Urine Appearance Urine pH Ur Specific [place] Urine Protein Urine Glucose (UA) Urine Ketones Urine Blood Urine Nitrite Urine Bilirubin Urine Urobilinogen Ur Leukocyte Esterase Urine WBC (Auto) Urine RBC (Auto) Ur Epithelial Cells Urine Bacteria Hyaline Casts Urine Mucus Salicylates 2.1 L Opiates Screen Methadone Screen Acetaminophen Barbiturate Screen Phencyclidine Screen Ur Amphetamines Screen MDMA (Ecstasy) Screen Benzodiazepines Screen Cocaine Screen U Marijuana (THC) Screen Alcohol, Quantitative Acetone, Qual Blood Type AB POSITIVE Antibody Screen Negative 02/21/18 02/21/18 02/21/18 18:00 18:05 18:05 WBC RBC Hgb Hct MCV MCH MCHC RDW Plt Count MPV Absolute Neuts (auto) Neutrophils % Lymphocytes % Monocytes % Eosinophils % Basophils % Nucleated RBC % PT with INR INR PTT (Actin FS) Sodium Potassium Chloride Carbon Dioxide Anion Gap BUN Creatinine Creat Clearance w eGFR POC Glucometer Random Glucose Lactic Acid 7.7 H* Calcium Phosphorus Magnesium Total Bilirubin AST ALT Alkaline Phosphatase Creatine Kinase Troponin I B-Natriuretic Peptide Total Protein Albumin Lipase TSH Urine Color Ltyellow Urine Appearance Slcloudy Urine pH 5.0 Ur Specific [place] 1.015 Urine Protein 2+ H Urine Glucose (UA) Negative Urine Ketones Negative Urine Blood 2+ H Urine Nitrite Negative Urine Bilirubin Negative Urine Urobilinogen Negative Ur Leukocyte Esterase Negative Urine WBC (Auto) 2 Urine RBC (Auto) 1 Ur Epithelial Cells Rare Urine Bacteria Many Hyaline Casts 10 Urine Mucus Rare Salicylates Opiates Screen Negative Methadone Screen Negative Acetaminophen Barbiturate Screen Negative Phencyclidine Screen Negative Ur Amphetamines Screen Negative MDMA (Ecstasy) Screen Negative Benzodiazepines Screen Negative Cocaine Screen Negative U Marijuana (THC) Screen Positive A* Alcohol, Quantitative Acetone, Qual Blood Type Antibody Screen 02/21/18 02/21/18 02/21/18 22:27 22:45 22:45 WBC RBC Hgb Hct MCV MCH MCHC RDW Plt Count MPV Absolute Neuts (auto) Neutrophils % Lymphocytes % Monocytes % Eosinophils % Basophils % Nucleated RBC % PT with INR INR PTT (Actin FS) Sodium Potassium Chloride Carbon Dioxide Anion Gap BUN Creatinine Creat Clearance w eGFR POC Glucometer 111 Random Glucose Lactic Acid Cancelled Calcium Phosphorus Magnesium Total Bilirubin AST ALT Alkaline Phosphatase Creatine Kinase Cancelled Troponin I Cancelled B-Natriuretic Peptide Total Protein Albumin Lipase TSH Urine Color Urine Appearance Urine pH Ur Specific [place] Urine Protein Urine Glucose (UA) Urine Ketones Urine Blood Urine Nitrite Urine Bilirubin Urine Urobilinogen Ur Leukocyte Esterase Urine WBC (Auto) Urine RBC (Auto) Ur Epithelial Cells Urine Bacteria Hyaline Casts Urine Mucus Salicylates Opiates Screen Methadone Screen Acetaminophen Barbiturate Screen Phencyclidine Screen Ur Amphetamines Screen MDMA (Ecstasy) Screen Benzodiazepines Screen Cocaine Screen U Marijuana (THC) Screen Alcohol, Quantitative Acetone, Qual Blood Type Antibody Screen 02/21/18 02/21/18 02/22/18 23:40 23:40 05:30 WBC 9.3 RBC 4.43 Hgb 12.6 Hct 38.5 MCV 86.9 MCH 28.5 MCHC 32.7 RDW 14.8 Plt Count 214 MPV 7.7 Absolute Neuts (auto) 4.4 Neutrophils % 47.4 Lymphocytes % 43.8 H Monocytes % 7.8 Eosinophils % 0.5 Basophils % 0.5 Nucleated RBC % 0 PT with INR INR PTT (Actin FS) Sodium Potassium Chloride Carbon Dioxide Anion Gap BUN Creatinine Creat Clearance w eGFR POC Glucometer Random Glucose Lactic Acid 0.9 Calcium Phosphorus Magnesium Total Bilirubin AST ALT Alkaline Phosphatase Creatine Kinase 139 Troponin I 0.09 H B-Natriuretic Peptide Total Protein Albumin Lipase TSH Urine Color Urine Appearance Urine pH Ur Specific [place] Urine Protein Urine Glucose (UA) Urine Ketones Urine Blood Urine Nitrite Urine Bilirubin Urine Urobilinogen Ur Leukocyte Esterase Urine WBC (Auto) Urine RBC (Auto) Ur Epithelial Cells Urine Bacteria Hyaline Casts Urine Mucus Salicylates Opiates Screen Methadone Screen Acetaminophen Barbiturate Screen Phencyclidine Screen Ur Amphetamines Screen MDMA (Ecstasy) Screen Benzodiazepines Screen Cocaine Screen U Marijuana (THC) Screen Alcohol, Quantitative Acetone, Qual Blood Type Antibody Screen 02/22/18 02/22/18 05:30 06:20 WBC RBC Hgb Hct MCV MCH MCHC RDW Plt Count MPV Absolute Neuts (auto) Neutrophils % Lymphocytes % Monocytes % Eosinophils % Basophils % Nucleated RBC % PT with INR INR PTT (Actin FS) Sodium 141 Potassium 3.5 Chloride 110 H Carbon Dioxide 23 Anion Gap 8 BUN 8 Creatinine 0.8 Creat Clearance w eGFR > 60 POC Glucometer 87 Random Glucose 87 Lactic Acid Calcium 8.3 L Phosphorus 3.8 Magnesium 1.8 Total Bilirubin 0.5 AST 16 ALT 13 Alkaline Phosphatase 58 Creatine Kinase Troponin I 0.10 H B-Natriuretic Peptide Total Protein 6.6 Albumin 3.2 L Lipase TSH Urine Color Urine Appearance Urine pH Ur Specific [place] Urine Protein Urine Glucose (UA) Urine Ketones Urine Blood Urine Nitrite Urine Bilirubin Urine Urobilinogen Ur Leukocyte Esterase Urine WBC (Auto) Urine RBC (Auto) Ur Epithelial Cells Urine Bacteria Hyaline Casts Urine Mucus Salicylates Opiates Screen Methadone Screen Acetaminophen Barbiturate Screen Phencyclidine Screen Ur Amphetamines Screen MDMA (Ecstasy) Screen Benzodiazepines Screen Cocaine Screen U Marijuana (THC) Screen Alcohol, Quantitative Acetone, Qual Blood Type Antibody Screen Current Medications Generic Name Dose Route Start Last Admin Trade Name Freq PRN Reason Stop Dose Admin Enoxaparin Sodium 40 mg 02/21/18 22:00 02/22/18 10:25 Lovenox - SQ 40 mg DAILY KOJO Administration Sodium Chloride 1,000 mls @ 75 mls/hr 02/21/18 22:00 02/21/18 23:57 Normal Saline - IV 75 mls/hr ASDIR KOJO Administration Levetiracetam 500 mg 02/22/18 10:00 02/22/18 10:25 Keppra Injection - IVPB 500 mg BID KOJO Administration ASSESSMENT AND PLAN: 62 year old female with CAD s/p recent NSTEMI (11/08), COPD, HTN, admitted with witnessed tonic-clonic seizure activity by family members. Patient does not recall events surrounding loss of consciousness. No prior history of seizure disorder. CT Head - atrophy, no acute findings. Utox pos for Marijuana ECG - flattened T waves II, III Troponin trending up to 0.1 from 0.05 1. Seizure, likely new Seizure Disorder CT Head - no acute findings MRI, EEG pending Started on Keppra. Neuro consulted. Seizure precautions Electrolytes ok 2. CAD s/p recent NSTEMI 11/08 Troponin rising with flattening of T waves on ECG No chest pain Cardiology consulted given recent NSTEMI and current TropI rise. 3. Uncontrolled HTN BP up to 180s/100s Resume home meds - Metoprolol and Norvasc DVT Prophylaxis - Lovenox 40 mg SQ
[2018-02-22] MEDS: ROSUVASTATIN CA 10 MG TABLET (FP) PO SCH (15:11)
[2018-02-22] MEDS: LOSARTAN POTASSIUM 25 MG TABLET PO SCH (15:11)
[2018-02-22] MEDS: MONTELUKAST NA 10 MG TABLET PO SCH (15:11)
--- NOTE | 2018-02-22 19:00 | EKG ---
Test Reason : Blood Pressure : / mmHG Vent. Rate : 102 BPM Atrial Rate : 102 BPM P-R Int : 206 ms QRS Dur : 078 ms QT Int : 370 ms P-R-T Axes : -21 023 -10 degrees QTc Int : 482 ms SINUS TACHYCARDIA OTHERWISE NORMAL ECG WHEN COMPARED WITH ECG OF 26-OCT-2017 14:48, NON-SPECIFIC CHANGE IN ST SEGMENT IN INFERIOR LEADS INVERTED T WAVES HAVE REPLACED NONSPECIFIC T WAVE ABNORMALITY IN INFERIOR LEADS Confirmed by HARINDER JACK, RORO ([id number]) on 02/22/2018 6:59:29 PM Referred By: Confirmed By:RORO PIZANO MD
--- NOTE | 2018-02-22 20:33 | CONSULT ---
Consult - text type - Consultation Consultation Note: NEUROLOGY CONSULTATION is greatly appreciated: Events reviewed. Patient examined. This 62 yo RH, m woman with h/o HTN, Chol, Asthma, COPD, and ASHD is s/p MR in after 3 days of progressive dyspnea, confusion and lethargy. Found to hypoxemia, elevated CK, and later NSTEMI. She did not have chest pain. Echo was unremarkable with EF=67% and no obvious ventricular dyskinesis. Yesterday was in [place] and went outside to smoke. Upon returning family noted generalized Tonic-clonic seizure activity with a prolonged post-ictal state. Pt is amnestic for most of these events. She does not recall going outside, transport to the hospital or her stay in the ED where she was loaded with Keppra. 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 MRI of brain (reviewed and not yet reported): shows atrophy and diffuse, confluent, periventricular microvascular changes and a discrete L basal ganglia lacune. Labs sig for Lactic acidosis (7.7 mg%) and possible UTI Now patient feels fine but "doesn't know what happened" HERSON: Cor reg. No bruits. No head trauma. No tongue biting NEURO: MS/speech: Normal CN II-XII: norfmal without Nystagmus Motor: No drift or tremor. Normal strength, bulk tone and reflexes except absent AJ's. Toes downgoing. Normal HEATHER's Coord: No FTN dystaxia. Sensory: Normal Gait: sl wide-based. IMP: Non-focal neurological exam. Essentially normal aside from a mild peripheral neuropathy. New onset seizure. The etiology is not immediately apparent, but in light of recent history, would be concerned to exclude cardioembolism to brain, since New-onset seizure in this age group often has an ischemic etiology. SUGGEST: Continue levetiracetam 500 mg PO q 12 hrs. Out patient neuro f/u and EEG Check CK, r/o NE Cardiology consultation. Telemetry. Thank you very much, Rolando Kuo MD
[2018-02-22] MEDS: SODIUM CHLORIDE 1,000 ML IV SCH (21:51)
[2018-02-23 06:53] LABS: HEMATOCRIT 41.6 % (32.4-45.2); HEMOGLOBIN 13.6 GM/dL (10.7-15.3); MCH 28.2 pg (25.7-33.7); MCHC 32.8 g/dl (32.0-36.0); MEAN CELL VOLUME 86.1 fl (80-96); MEAN PLT VOLUME 7.7 fl (7.5-11.1); PLATELET COUNT 209 K/MM3 (134-434); RBC 4.82 M/mm3 (3.60-5.2); RDW 14.5 % (11.6-15.6); WHITE BLOOD COUNT 5.9 K/mm3 (4.0-10.0)
[2018-02-23 07:23] LABS: ALBUMIN 3.4 g/dl (3.4-5.0); ALK PHOS 61 U/L (45-117); ANION GAP 7 MMOL/L (8-16); BILIRUBIN,TOTAL 0.6 mg/dL (0.2-1); BLOOD UREA NITROGEN 9 mg/dL (7-18); CALCIUM 8.4 mg/dL (8.5-10.1); CHLORIDE 108 mmol/L (98-107); CO2 24 mmol/L (21-32); CREATININE 0.7 mg/dL (0.55-1.3); GLUCOSE,RANDOM 84 mg/dL (74-106); POTASSIUM 3.3 mmol/L (3.5-5.1); SGOT/AST 15 U/L (15-37); SGPT/ALT 12 U/L (13-61); SODIUM 139 mmol/L (136-145); TOT PROT 6.9 g/dl (6.4-8.2)
[2018-02-23] MEDS ORDERED: POTASSIUM CHLORIDE TABS 20 MEQ TABLET.ER (FP) PO ONE (07:34)
[2018-02-23] MEDS: ALBUTEROL SO4 8 GM HFA INHALER IH PRN ×2 (07:45→21:34)
[2018-02-23] MEDS: MONTELUKAST NA 10 MG TABLET PO SCH (09:14)
[2018-02-23] MEDS: LOSARTAN POTASSIUM 25 MG TABLET PO SCH (09:14)
[2018-02-23] MEDS: ENOXAPARIN NA (PORCINE) 40 MG/0.4 ML DISP.SYRIN SQ SCH (09:14)
[2018-02-23] MEDS: ROSUVASTATIN CA 10 MG TABLET (FP) PO SCH (09:14)
[2018-02-23] MEDS: levETIRAcetam 500 MG/5 ML INJECTION VIAL IVPB SCH (09:15)
[2018-02-23] MEDS: levETIRAcetam 500 MG TABLET (FP) PO SCH ×2 (12:45→21:34)
[2018-02-23 13:46] LABS: MAGNESIUM 1.8 mg/dL (1.8-2.4); PHOSPHOROUS 2.8 mg/dL (2.5-4.9)
--- NOTE | 2018-02-23 16:49 | PN ---
Physical Exam: SUBJECTIVE: Patient seen and examined at bedside this morning. She endorses no acute complaints today. OBJECTIVE: Vital Signs Period Temp Pulse Resp BP Sys/[place] Pulse Ox Last 24 Hr 97.7 F-98.7 F 87-96 17-20 130-155/73-88 97-98 GENERAL: The patient is awake, alert, and oriented to person, place, and time, in no acute distress. HEAD: Normal with no signs of trauma. EYES: PERRL, extraocular movements intact, sclera anicteric. ENT: Oropharynx clear without exudates, moist mucous membranes. NECK: Supple without lymphadenopathy LUNGS: Breath sounds equal, clear to auscultation bilaterally. No wheezes, no crackles. No accessory muscle use. HEART: Regular rate and rhythm, S1, S2 without murmur, rub or gallop. ABDOMEN: Soft, nontender, nondistended. Normoactive bowel sounds X4 quadrants. No guarding, no rebound tenderness. EXTREMITIES: 2+ radial and doralis pedis pulses b/l. Warm, well-perfused. No lower extremity edema b/l. NEUROLOGICAL: Cranial nerves II through XII grossly intact. Normal speech. Good muscle tone B/L. Strength 5/5 b/l upper and lower extremities. Sensation intact b/l upper and lower extremities. PSYCH: Mood and affect appropriate upon my encounter today. SKIN: Warm, dry. Laboratory Results - last 24 hr 02/22/18 02/22/18 02/23/18 05:30 16:00 05:30 WBC 5.9 RBC 4.82 Hgb 13.6 Hct 41.6 MCV 86.1 MCH 28.2 MCHC 32.8 RDW 14.5 Plt Count 209 MPV 7.7 Sodium 141 Potassium 3.5 Chloride 110 H Carbon Dioxide 23 Anion Gap 8 BUN 8 Creatinine 0.8 Creat Clearance w eGFR > 60 Random Glucose 87 Calcium 8.3 L Phosphorus 3.8 Magnesium 1.8 Total Bilirubin 0.5 AST 16 ALT 13 Alkaline Phosphatase 58 Creatine Kinase 146 Troponin I 0.10 H 0.09 H Total Protein 6.6 Albumin 3.2 L 02/23/18 06:00 WBC RBC Hgb Hct MCV MCH MCHC RDW Plt Count MPV Sodium 139 Potassium 3.3 L Chloride 108 H Carbon Dioxide 24 Anion Gap 7 L BUN 9 Creatinine 0.7 Creat Clearance w eGFR > 60 Random Glucose 84 Calcium 8.4 L Phosphorus 2.8 Magnesium 1.8 Total Bilirubin 0.6 AST 15 ALT 12 L Alkaline Phosphatase 61 Creatine Kinase Troponin I Total Protein 6.9 Albumin 3.4 Active Medications Generic Name Dose Route Start Last Admin Trade Name Freq PRN Reason Stop Dose Admin Albuterol Sulfate 2 puff 02/22/18 14:32 02/23/18 07:45 Ventolin Hfa Inhaler - IH 2 puff Q4H PRN Administration ASTHMA Diltiazem HCl 120 mg 02/22/18 14:45 02/23/18 09:14 Cardizem Cd - PO 120 mg DAILY KOJO Administration Enoxaparin Sodium 40 mg 02/21/18 22:00 02/23/18 09:14 Lovenox - SQ 40 mg DAILY KOJO Administration Levetiracetam 500 mg 02/23/18 12:45 02/23/18 12:45 Keppra - PO Not Given BID KOJO Losartan Potassium 25 mg 02/22/18 14:45 02/23/18 09:14 Cozaar - PO 25 mg DAILY KOJO Administration Montelukast Sodium 10 mg 02/22/18 14:45 02/23/18 09:14 Singulair - PO 10 mg DAILY KOJO Administration Rosuvastatin Calcium 10 mg 02/22/18 14:45 02/23/18 09:14 Crestor - PO 10 mg DAILY KOJO Administration ASSESSMENT/PLAN: Patient is a 62 year old female with history of NSTEMI (10/2017), hypertension, asthma, COPD, presents after a witnessed seizure. Seizure -CT head negative for acute intracranial pathology. -MRI brain results noted. -F/U EEG -Keppra 500mg IV BID -Neurology consult (Dr. Kuo) appreciated. Hypertension -Losartan 25mg PO daily -Diltiazem 120mg PO dialy Asthma - Currently not in exacerbation - Monte[place]ukast 10mg PO daily -Albuterol inhaler. CAD, hx NSTEMI -Troponins 0.05 -> 0.09 -> 0.10 -> 0.09 -Reinstate Aspirin 81mg daily -F/U Cardiology consult (Dr. Avina) FEN -No IV fluids. Encourage judicious oral hydration -Follow CMP -Regular diet Prophylaxis -Lovenox 40u subq daily Disposition -Continue care in medical surgical floor. Visit type - Emergency Visit Emergency Visit: Yes ED Registration Date: 02/21/18 Care time: The patient presented to the Emergency Department on the above date and was hospitalized for further evaluation of their emergent condition. - New Patient This patient is new to me today: No - Critical Care Critical Care patient: No - Discharge Referral Referred to [facility] Med [facility] No
--- NOTE | 2018-02-23 17:52 | PN ---
Teaching Attending Note Name of Resident: Samuel Gomez ATTENDING PHYSICIAN STATEMENT I saw and evaluated the patient. I reviewed the resident's note and discussed the case with the resident. I agree with the resident's findings and plan as documented. SUBJECTIVE: OBJECTIVE: Afebrile, Hemodynamically Stable Last Vital Signs Temp Pulse Resp BP Pulse Ox 98.7 F 87 20 139/73 98 02/23/18 14:00 02/23/18 14:00 02/23/18 14:00 02/23/18 14:00 02/23/18 10:00 HEENT - Atraumatic, Normocephalic Heart - S1. S2, RRR Lungs - clear to auscultation. No crackles/wheeze. Abdomen - Soft, non-tender. Bowel Sounds normal. Neuro - AAO x 3. Tone/Power normal all 4 extremities. Laboratory Results - last 24 hr 02/22/18 02/22/18 02/23/18 05:30 16:00 05:30 WBC 5.9 RBC 4.82 Hgb 13.6 Hct 41.6 MCV 86.1 MCH 28.2 MCHC 32.8 RDW 14.5 Plt Count 209 MPV 7.7 Sodium 141 Potassium 3.5 Chloride 110 H Carbon Dioxide 23 Anion Gap 8 BUN 8 Creatinine 0.8 Creat Clearance w eGFR > 60 Random Glucose 87 Calcium 8.3 L Phosphorus 3.8 Magnesium 1.8 Total Bilirubin 0.5 AST 16 ALT 13 Alkaline Phosphatase 58 Creatine Kinase 146 Troponin I 0.10 H 0.09 H Total Protein 6.6 Albumin 3.2 L 02/23/18 06:00 WBC RBC Hgb Hct MCV MCH MCHC RDW Plt Count MPV Sodium 139 Potassium 3.3 L Chloride 108 H Carbon Dioxide 24 Anion Gap 7 L BUN 9 Creatinine 0.7 Creat Clearance w eGFR > 60 Random Glucose 84 Calcium 8.4 L Phosphorus 2.8 Magnesium 1.8 Total Bilirubin 0.6 AST 15 ALT 12 L Alkaline Phosphatase 61 Creatine Kinase Troponin I Total Protein 6.9 Albumin 3.4 Current Medications Generic Name Dose Route Start Last Admin Trade Name Freq PRN Reason Stop Dose Admin Albuterol Sulfate 2 puff 02/22/18 14:32 02/23/18 07:45 Ventolin Hfa Inhaler - IH 2 puff Q4H PRN Administration ASTHMA Diltiazem HCl 120 mg 02/22/18 14:45 02/23/18 09:14 Cardizem Cd - PO 120 mg DAILY KOJO Administration Enoxaparin Sodium 40 mg 02/21/18 22:00 02/23/18 09:14 Lovenox - SQ 40 mg DAILY KOJO Administration Levetiracetam 500 mg 02/23/18 12:45 02/23/18 12:45 Keppra - PO Not Given BID KOJO Losartan Potassium 25 mg 02/22/18 14:45 02/23/18 09:14 Cozaar - PO 25 mg DAILY KOJO Administration Montelukast Sodium 10 mg 02/22/18 14:45 02/23/18 09:14 Singulair - PO 10 mg DAILY KOJO Administration Rosuvastatin Calcium 10 mg 02/22/18 14:45 02/23/18 09:14 Crestor - PO 10 mg DAILY KOJO Administration ASSESSMENT AND PLAN: 62 year old female with CAD s/p recent NSTEMI (11/08), Asthma/COPD, HTN, Hx CVA, admitted 02/21/18 with witnessed tonic-clonic seizure activity by family members. Patient does not recall events surrounding loss of consciousness. No prior history of seizure disorder. CT Head - atrophy, no acute findings. Utox pos for Marijuana ECG - flattened T waves II, III Troponin trended up to 0.1 max from 0.05 1. Seizure, likely new Seizure Disorder CT Head - no acute findings MRI - moderate atrophy, periventricular and cerebellar multiple chronic infarcts Started on Keppra. Discussed with Dr. Kuo (Neuro) - recommends starting Plavix and continuing Crestor 10mg for secondary stroke prevention. Seizure precautions Electrolytes ok 2. CAD s/p recent NSTEMI 11/08 Troponin rising with flattening of T waves on ECG No chest pain Cardiology consulted given recent NSTEMI and current TropI rise. Patient not on Aspirin. 3. Uncontrolled HTN BP up to 155 systolic. Resumed on home medications - will increase dose of Losartan to 50mg and continue Cardizem. 4. Asthma/COPD - Stable. Continue Singulair and Albuterol prn. 5. Hypokalemia - repleted. DVT Prophylaxis - Lovenox 40 mg SQ
[2018-02-23] MEDS ORDERED: LOSARTAN POTASSIUM 25 MG TABLET PO ONE (18:15)
[2018-02-23] MEDS: CLOPIDOGREL BISULFATE 75 MG TABLET (FP) PO SCH (18:22)
[2018-02-24 07:35] LABS: MCH 28.1 pg (25.7-33.7); MCHC 32.6 g/dl (32.0-36.0); MEAN CELL VOLUME 86.3 fl (80-96); MEAN PLT VOLUME 7.8 fl (7.5-11.1); PLATELET COUNT 218 K/MM3 (134-434); RBC 4.98 M/mm3 (3.60-5.2); RDW 14.5 % (11.6-15.6); WHITE BLOOD COUNT 6.4 K/mm3 (4.0-10.0)
[2018-02-24 07:48] LABS: ALBUMIN 3.5 g/dl (3.4-5.0); ALK PHOS 61 U/L (45-117); ANION GAP 10 MMOL/L (8-16); BILIRUBIN,TOTAL 0.5 mg/dL (0.2-1); BLOOD UREA NITROGEN 8 mg/dL (7-18); CALCIUM 8.9 mg/dL (8.5-10.1); CHLORIDE 108 mmol/L (98-107); CHOLESTEROL 126 mg/dL (50-200); CO2 23 mmol/L (21-32); CREATININE 0.7 mg/dL (0.55-1.3); GLUCOSE,RANDOM 87 mg/dL (74-106); HDL CHOLESTEROL 37 mg/dL (40-60); POTASSIUM 3.4 mmol/L (3.5-5.1); SGOT/AST 11 U/L (15-37); SGPT/ALT 13 U/L (13-61); SODIUM 141 mmol/L (136-145); TOT PROT 7.1 g/dl (6.4-8.2); TRIGLYCERIDES 68 mg/dL (0-150)
[2018-02-24] MEDS ORDERED: POTASSIUM CHLORIDE TABS 20 MEQ TABLET.ER (FP) PO ONE (09:28)
[2018-02-24] MEDS ORDERED: LOSARTAN POTASSIUM 25 MG TABLET PO SCH (10:00)
[2018-02-24] MEDS: ROSUVASTATIN CA 10 MG TABLET (FP) PO SCH (11:18)
[2018-02-24] MEDS: levETIRAcetam 500 MG TABLET (FP) PO SCH (11:19)
[2018-02-24] MEDS: MONTELUKAST NA 10 MG TABLET PO SCH (11:19)
[2018-02-24] MEDS: ENOXAPARIN NA (PORCINE) 40 MG/0.4 ML DISP.SYRIN SQ SCH (11:19)
[2018-02-24] MEDS: CLOPIDOGREL BISULFATE 75 MG TABLET (FP) PO SCH (11:19)
--- NOTE | 2018-02-24 12:28 | CON.CARD ---
Consult Consult Specialty:: Cardiology Referred by:: Hospitalist Medicine Reason for Consultation:: Hypertensive heart disease, demand ischemia - History of Present Illness Chief Complaint: Seizure d/o History of Present Illness: . 62 yo F w/ PMH of CAD recent NSTEMI (10/2017), asthma, COPD, and HTN, p/w witnessed seizure activity and hypertensive 180/100s, since admission and initiation of anti-seizure meds denies further recurrence of seizures and remains asymptomatic from CV-standpoint and denies chest pain, dyspnea, near or true syncope, palpitations, orthopnea, PND or LE edema. - History Source History Provided By: Patient, Medical Record Limitations to Obtaining History: No Limitations - Past Medical History Cardio/Vascular: Yes: HTN Pulmonary: Yes: Asthma, COPD ...: No - Alcohol/Substance Use Hx Alcohol Use: No - Smoking History Smoking history: Current every day smoker Have you smoked in the past 12 months: No Aproximately how many cigarettes per day: 10 - Social History Usual Living Arrangement: With Child ADL: Independent History of Recent Travel: No Home Medications - Allergies Allergies/Adverse Reactions: Allergies Allergy/AdvReac Type Severity Reaction Status Date / Time Penicillins Allergy Unknown Verified 02/21/18 20:11 - Home Medications Home Medications: Ambulatory Orders RX: Albuterol Sulfate Inhaler - [Ventolin HFA Inhaler -] 1 - 2 inh PO QID PRN # 1 inhaler 10/31/17 RX: Montelukast Sodium [Singulair] 10 mg PO DAILY #30 tablet 10/31/17 RX: Diltiazem HCl [Diltiazem 24Hr ER] 120 mg PO DAILY 02/22/18 RX: Losartan Potassium 25 mg PO DAILY 02/22/18 RX: Rosuvastatin [Crestor -] 10 mg PO DAILY 02/22/18 RX: levETIRAcetam [Keppra -] 500 mg PO BID 30 Days #60 tablet 02/23/18 Review of Systems - Review of Systems Neurological: reports: Seizure Vital Signs: Vital Signs Temperature 98.3 F 02/24/18 10:00 Pulse Rate 86 02/24/18 10:00 Respiratory Rate 18 02/24/18 10:00 Blood Pressure 124/65 02/24/18 10:00 O2 Sat by Pulse Oximetry (%) 98 02/24/18 10:00 Constitutional: Yes: No Distress, Calm Neck: Yes: Supple Respiratory: Yes: Regular, CTA Bilaterally Gastrointestinal: Yes: Normal Bowel Sounds, Soft Cardiovascular: Yes: Regular Rate and Rhythm JVD: No Carotid Bruit: No Heart Sounds: Yes: S1, S2 Edema: No - Other Data Labs, Other Data: CBC, BMP 02/24/18 05:40 02/24/18 05:40 INR, PTT INR 1.10 (0.83-1.09) H 02/21/18 17:56 ST @ 102 inferior TWI Echo: Report Reviewed Ejection Fraction %: LVEF > or = 40 % Imaging - Results Chest X-ray: Report Reviewed (congestion) Problem List - Problems (1) Coronary artery disease Code(s): I25.10 - ATHSCL HEART DISEASE OF [place] CORONARY ARTERY W/O ANG PCTRS Qualifiers: Coronary Disease-Associated Artery/Lesion type: [place] artery [place] vs. transplanted heart: [place] heart Associated angina: without angina Qualified Code(s): I25.10 - Atherosclerotic heart disease of [place] coronary artery without angina pectoris (2) New onset seizure Code(s): R56.9 - UNSPECIFIED CONVULSIONS (3) HTN (hypertension) Code(s): I10 - ESSENTIAL (PRIMARY) HYPERTENSION Qualifiers: Hypertension type: essential hypertension Qualified Code(s): I10 - Essential (primary) hypertension (5) Demand ischemia Code(s): I24.8 - OTHER FORMS OF ACUTE ISCHEMIC HEART DISEASE Assessment/Plan 10/27/2017 Echo: Normal biventricular size and fxn, tr TR CT Head - no acute findings MRI - moderate atrophy, periventricular and cerebellar multiple chronic infarcts 1. Seizure disorder 2. CAD h/o NSTEMI post demand ischemia 3. Asthma/COPD 4. HTN with improved control 5. H/o stroke 6. Hyperlipidemia P: 1. Start ASA 81 qd, Crestor 10 qd, Cardizem CD 120 qd and losartan 25 qd 2. Outpatient cardiac f/u in office to assess severity of CAD with MPI 3. Thank you for consultative opportunity
[2018-02-24 13:41] VITALS: BP 136/79; PULSE 89; TEMP 98.6
--- NOTE | 2018-02-24 13:47 | PN ---
Teaching Attending Note Name of Resident: Samuel Gomez ATTENDING PHYSICIAN STATEMENT I saw and evaluated the patient. I reviewed the resident's note and discussed the case with the resident. I agree with the resident's findings and plan as documented. SUBJECTIVE: Feels well - no complaints. Wants to go home. No further seizure activity. No limb numbness/weakness. OBJECTIVE: Afebrile, Hemodynamically Stable. Last Vital Signs Temp Pulse Resp BP Pulse Ox 98.3 F 86 18 124/65 98 02/24/18 10:00 02/24/18 10:00 02/24/18 10:00 02/24/18 10:00 02/24/18 10:00 HEENT - Atraumatic, Normocephalic Heart - S1, S3, RRR. Lungs - No crackles/wheeze. Abdomen - Soft, non-tender. Bowel Sounds normal. Neuro - AAO x 3. Tone/Power normal all 4 extremities. Laboratory Results - last 24 hr 02/23/18 02/24/18 02/24/18 06:00 05:40 05:40 WBC 6.4 RBC 4.98 Hgb 14.0 Hct 43.0 MCV 86.3 MCH 28.1 MCHC 32.6 RDW 14.5 Plt Count 218 MPV 7.8 Sodium 141 Potassium 3.4 L Chloride 108 H Carbon Dioxide 23 Anion Gap 10 BUN 8 Creatinine 0.7 Creat Clearance w eGFR > 60 Random Glucose 87 Calcium 8.9 Phosphorus 2.8 Magnesium 1.8 Total Bilirubin 0.5 AST 11 L ALT 13 Alkaline Phosphatase 61 Total Protein 7.1 Albumin 3.5 Triglycerides 68 Cholesterol 126 Total LDL Cholesterol 74 HDL Cholesterol 37 L Current Medications Generic Name Dose Route Start Last Admin Trade Name Freq PRN Reason Stop Dose Admin Albuterol Sulfate 2 puff 02/22/18 14:32 02/23/18 21:34 Ventolin Hfa Inhaler - IH 2 puff Q4H PRN Administration ASTHMA Clopidogrel Bisulfate 75 mg 02/23/18 18:15 02/24/18 11:19 Plavix - PO 75 mg DAILY KOJO Administration Diltiazem HCl 120 mg 02/22/18 14:45 02/24/18 11:18 Cardizem Cd - PO 120 mg DAILY KOJO Administration Enoxaparin Sodium 40 mg 02/21/18 22:00 01/04/19 11:19 Lovenox - SQ 40 mg DAILY KOJO Administration Levetiracetam 500 mg 02/23/18 12:45 02/24/18 11:19 Keppra - PO 500 mg BID KOJO Administration Losartan Potassium 50 mg 02/24/18 10:00 02/24/18 11:18 Cozaar - PO 50 mg DAILY KOJO Administration Montelukast Sodium 10 mg 02/22/18 14:45 02/24/18 11:19 Singulair - PO 10 mg DAILY KOJO Administration Rosuvastatin Calcium 10 mg 02/22/18 14:45 02/24/18 11:18 Crestor - PO 10 mg DAILY KOJO Administration ASSESSMENT AND PLAN: 62 year old female with CAD s/p recent NSTEMI (11/08), Asthma/COPD, HTN, Hx CVA, admitted 02/21/18 with witnessed tonic-clonic seizure activity by family members. Patient does not recall events surrounding loss of consciousness. No prior history of seizure disorder. CT Head - atrophy, no acute findings. Utox pos for Marijuana ECG - flattened T waves II, III Troponin trended up to 0.1 max from 0.05 1. Seizure, likely new Seizure Disorder CT Head - no acute findings MRI - moderate atrophy, periventricular and cerebellar multiple chronic infarcts Started on Keppra. Discussed with Dr. Kuo (Neuro) - recommends starting antiplatelet and continuing Crestor 10mg for secondary stroke prevention. Neurology follow up on discharge for EEG result. 2. CAD s/p recent NSTEMI 11/08 Troponin rising with flattening of T waves on ECG No chest pain Cardiology consulted given recent NSTEMI and current TropI rise - recommend switching Plavix to Aspirin, and continuing BB, ARB, Statin. Cardiology follow up as out-patient for MPI. 3. HTN - better controlled. Continue Losartan 50mg and Cardizem 120mg on discharge. 4. Asthma/COPD - Stable. Continue Singulair and Albuterol prn. 5. Hypokalemia - repleted. Medically stable and cleared from cardiology and neurology standpoint for discharge.
--- NOTE | 2018-02-24 14:10 | DS ---
Physical Exam: SUBJECTIVE: Patient seen and examined at bedside this morning. No acute overnight events. Patient endorses no acute complaints today. OBJECTIVE: Vital Signs Period Temp Pulse Resp BP Sys/[place] Pulse Ox Last 24 Hr 97.5 F-98.6 F 86-89 18-20 118-158/65-85 97-98 PHYSICAL EXAM GENERAL: The patient is awake, alert, and oriented to person, place, and time, in no acute distress. HEAD: Normal with no signs of trauma. EYES: PERRL, extraocular movements intact, sclera anicteric. ENT: Oropharynx clear without exudates, moist mucous membranes. NECK: Supple without lymphadenopathy LUNGS: Breath sounds equal, clear to auscultation bilaterally. No wheezes, no crackles. No accessory muscle use. HEART: Regular rate and rhythm, S1, S2 without murmur, rub or gallop. ABDOMEN: Soft, nontender, nondistended. Normoactive bowel sounds X4 quadrants. No guarding, no rebound tenderness. EXTREMITIES: 2+ radial and doralis pedis pulses b/l. Warm, well-perfused. No lower extremity edema b/l. NEUROLOGICAL: Cranial nerves II through XII grossly intact. Normal speech. Good muscle tone B/L. Strength 5/5 b/l upper and lower extremities. Sensation intact b/l upper and lower extremities. PSYCH: Mood and affect appropriate upon my encounter today. SKIN: Warm, dry. LABS Laboratory Results - last 24 hr 02/24/18 02/24/18 05:40 05:40 WBC 6.4 RBC 4.98 Hgb 14.0 Hct 43.0 MCV 86.3 MCH 28.1 MCHC 32.6 RDW 14.5 Plt Count 218 MPV 7.8 Sodium 141 Potassium 3.4 L Chloride 108 H Carbon Dioxide 23 Anion Gap 10 BUN 8 Creatinine 0.7 Creat Clearance w eGFR > 60 Random Glucose 87 Calcium 8.9 Total Bilirubin 0.5 AST 11 L ALT 13 Alkaline Phosphatase 61 Total Protein 7.1 Albumin 3.5 Triglycerides 68 Cholesterol 126 Total LDL Cholesterol 74 HDL Cholesterol 37 L HOSPITAL COURSE: Date of Admission:02/21/18 Date of Discharge: 02/24/18 Patient is a 62 year old female with history of NSTEMI (10/2017), hypertension, asthma, COPD, presents after a witnessed seizure. CT head negative for acute intracranial pathology. MRI brain shows moderate atrophy and periventricular chronic microvascular infracts, bilateral chronic lacunar infarcts noted. Patient was evaluated by neurologist, who initiated Keppra 500mg BID. Troponins were slightly elevated at 0.05 upon admission, peaked at 0.10. Cardiology evaluation noted troponins likely secondary to seizure activity. Patient had no seizure activity during hospital course. Patient was discharged on Aspirin, Crestor, Cardizem, Losartan, Monteleukast, Ventolin inhaler, and Keppra. Patient instructed to follow up with primary care provider, solder technician, neurologist to follow up EEG. Minutes to complete discharge: 35 Discharge Summary Reason For Visit: NEW ONSET SEIZURE,ALT. MENTAL STATUS Current Active Problems Altered mental status (Acute) Coronary artery disease (Acute) Demand ischemia (Acute) H/O stroke without residual deficits (Acute) New onset seizure (Acute) Condition: Stable - Instructions Diet, Activity, Other Instructions: You were admitted to the hospital after a seizure. You were evaluated by the neurologist (bran doctor) and solder technician (heart doctor), and have been cleared for discharge. Continue taking your home medications as directed: You will begin taking Keppra 500mg every 12 hours for seizures. You will begin taking Aspirin 81mg daily We have increased your Losartan dosage to 50mg daily Take Crestor 10mg daily Take Cardizem CD 120mg daily Take Monteleukast 10mg daily. Continue using your Albuterol rescue inhaler as directed. Follow up with your primary care provider within two- three days of discharge. Follow up with neurologist (Dr. Kuo) within one week as an outpatient. You will follow up on the EEG done while at the hospital at that appointment. Follow up with solder technician (Dr. Avina) within one week as an outpatient. You may need Myocardial Perfusion Imaging, and will discuss further at your appointment. Call to schedule the appointment. Please return to the nearest emergency department if you experience any seizure activity, fall, loss of conciousness, fevers, chills, shortness of breath, chest pain, palpitations, abdominal pain, nausea, vomiting. Referrals: Rolando Kuo MD [Staff Physician] - Charan Long MD [Staff Physician] - Disposition: HOME - Home Medications Comprehensive Discharge Medication List: Ambulatory Orders Albuterol Sulfate Inhaler - [Ventolin HFA Inhaler -] 1 - 2 inh PO QID PRN #1 inhaler 10/31/17 Montelukast Sodium [Singulair] 10 mg PO DAILY #30 tablet 10/31/17 Diltiazem HCl [Diltiazem 24Hr ER] 120 mg PO DAILY 02/22/18 Rosuvastatin [Crestor -] 10 mg PO DAILY 02/22/18 levETIRAcetam [Keppra -] 500 mg PO BID 30 Days #60 tablet 02/23/18 Aspirin [ASA -] 81 mg PO DAILY #30 tab.chew 02/24/18 Losartan Potassium 50 mg PO DAILY 30 Days #30 tablet 02/24/18 This patient is new to me today: No Emergency Visit: Yes ED Registration Date: 02/21/18 Care time: The patient presented to the Emergency Department on the above date and was hospitalized for further evaluation of their emergent condition. Critical Care patient: No - Discharge Referral Referred to [facility] Med P.C.: No
== END 2018-02-24 14:39 | disposition home or self-care (01) | DRG 53 ==
LOC: JER 17:09 → JERBED 19:21 → J4W 21:34
PROVIDERS: ADMIT Internal Medicine
DX: G40.909 Epilepsy, unspecified, not intractable, without status epilepticus (principal); I24.8 Other forms of acute ischemic heart disease; E11.40 Type 2 diabetes mellitus with diabetic neuropathy, unspecified; I10 Essential (primary) hypertension; Z88.0 Allergy status to penicillin; I25.10 Atherosclerotic heart disease of native coronary artery without angina pectoris; I25.2 Old myocardial infarction; J44.9 Chronic obstructive pulmonary disease, unspecified; E66.9 Obesity, unspecified; E78.5 Hyperlipidemia, unspecified; E87.6 Hypokalemia; F12.90 Cannabis use, unspecified, uncomplicated
CPT/HCPCS: 36415; 70450-TC; 70551-TC; 71045-TC-FY; 80053; 80061; 80307; 81003; 81015; 82009; 82550; 82962; 83605; 83690; 83721; 83735; 83880; 84100; 84443; 84484; 85025; 85027; 85610; 85730; 86850; 86900; 86901; 87040; 93005; 93010; 95816; 99283-25; J7030

== ENCOUNTER 2018-04-04 10:39 | Observation (INO) | payer OTHER ==
--- NOTE | 2018-04-04 10:53 | PDOC ---
History of Present Illness - General Chief Complaint: Seizure Stated Complaint: SEIZURE Time Seen by Provider: 04/04/18 10:53 History Source: Patient Exam Limitations: Clinical Condition - History of Present Illness Initial Comments: Patient is a 62 yo F w a pmh of CAD s/p nstemi 10/2017, asthma, T2DM, HTN, who presents to the ER BIBEMS after what EMS said was a seizure episode. As per EMS office services manager: Had seizure today. Daughter said lasted 3 minutes. First seizure on . She feels sick, nauseous, vomiting, was given zofran by ems. The patient is confused and altered at bedside and not answering commands appropriately. She occasionally moans and states that her abdomen hurts but otherwise cannot contribute to an appropriate history. PCP: Dr. Pete Bridges Hx: Current every day smoker, Denies alcohol, denies other substance usage Allergies: Penicillins Past History - Past Medical History Allergies/Adverse Reactions: Allergies Allergy/AdvReac Type Severity Reaction Status Date / Time Penicillins Allergy Unknown Verified 02/21/18 20:11 Home Medications: Ambulatory Orders Albuterol Sulfate Inhaler - [Ventolin HFA Inhaler -] 1 - 2 inh PO QID PRN #1 inhaler 10/31/17 Montelukast Sodium [Singulair] 10 mg PO DAILY #30 tablet 10/31/17 Diltiazem HCl [Diltiazem 24Hr ER] 120 mg PO DAILY 02/22/18 Rosuvastatin [Crestor -] 10 mg PO DAILY 02/22/18 levETIRAcetam [Keppra -] 500 mg PO BID 30 Days #60 tablet 02/23/18 Aspirin [ASA -] 81 mg PO DAILY #30 tab.chew 02/24/18 Losartan Potassium 50 mg PO DAILY 30 Days #30 tablet 02/24/18 levETIRAcetam [Keppra -] 500 mg PO BID 10 Days #20 tablet 04/04/18 Anemia: No Asthma: Yes Cancer: No Cardiac Disorders: Yes (?heart murmur as child) CVA: No COPD: No CHF: No Dementia: Yes ("FORGETFUL") Diabetes: No GI Disorders: No Disorders: No HTN: Yes Hypercholesterolemia: Yes Liver Disease: No Seizures: Yes (TODAY) Thyroid Disease: No - Surgical History Abdominal Surgery: No Appendectomy: No Cardiac Surgery: No Cholecystectomy: No Lung Surgery: No Neurologic Surgery: No Orthopedic Surgery: No - Suicide/Smoking/Psychosocial Hx Smoking History: Current every day smoker Have you smoked in the past 12 months: No Number of Cigarettes Smoked Daily: 10 'Breaking Loose' booklet given: 10/26/17 Hx Alcohol Use: No Drug/Substance Use Hx: No Substance Use Type: Marijuana Hx Substance Use Treatment: No (denies) Review of Systems - Review of Systems Able to Perform ROS?: No (Confused) *Physical Exam - Physical Exam Comments: GENERAL: Patient is confused, lethargic, and occasionally groaning of abdominal discomfort. HEENT: Normocephalic, atraumatic. Pinpoint pupils which are equal and reactive to light and accommodation. CARDIOVASCULAR: Normal S1, S2. Regular rate and rhythm. PULMONARY: No evidence of respiratory distress. Lungs clear to auscultation bilaterally. No wheezing, rales or rhonchi. ABDOMEN: Normal bowel sounds. General discomfort. No focal TTP. Soft, non-distended. EXTREMITIES: Normal ROM in all four extremities. No gross deformities. SKIN: Warm, dry. No rash NEUROLOGICAL: No focal neurological deficits. Cannot assess well secondary to clinical condition. ED Treatment Course - LABORATORY CBC & Chemistry Diagram: 04/04/18 11:32 04/04/18 11:32 Medical Decision Making - Medical Decision Making Patient is a 62 yo F w a pmh of CAD s/p nstemi 10/2017, asthma, T2DM, HTN, who presents to the ER BIBEMS after what EMS said was a seizure episode. As per EMS office services manager: Had seizure today. Daughter said lasted 3 minutes. First seizure on . She feels sick, nauseous, vomiting, was given zofran by ems. The patient is confused and altered at bedside and not answering commands appropriately. She occasionally moans and states that her abdomen hurts but otherwise cannot contribute to an appropriate history. VS: Hypertensive, otherwise WNL. DDx IBNLT: Seizure vs infection, abdominal process, intracranial bleed, electrolyte abnormality, HHNS vs DKA Plan: Labs, Urine, CT, XR, EKG, IV hydration, re-assess. Urine tox screen: Caesar CTAP results: An approximately 11 x 3.4 x 3.2 cm nonspecific oblong shape tubular structure is noted within the right inferior pelvis. Curvilinear wall calcification is seen along the ventral and dorsal borders of this fluid structure - ? unusually shaped ovarian cyst, chronic fallopian tube dilatation, duplication cyst. CANDY SPREADER HELPER consultation is suggested in regards to follow-up/ management. - Will obtain a TVUS - TVUS shows cyst but generally unremarkable. Head CT results: No acute pathological changes since her last head CT in February 2018 Labs and urine unremarkable. The patient is much more alert then she was at admission on re-assessment, yet she is still surprisingly drowsy, lethargic and somnolent. She admits to not having taken her BP and seizure meds for the past 3 days because she was having insurance problems.She states that her insurance problems are now fixed and she can take her meds. - her hypertension and seizure can easily be explained by her not being compliant with her daily meds - Giving daily meds in ER. - consulting neurology - Dr. Kuo to ask whether to give extra loading dose considering she hasn't taken her keppra in 3 days. - He says to load her up with 1000 mg of Keppra since she has not taken it in 3 days. He recommended to make sure she has a script for 500 BID keppra for the next 10 to 14 days and she can follow up in his office this week. Given abnormal cyst in ovary will recommend patient follow up with gynecology. We were considering DCing the patient but she was continuously drowsy throughout the day. I called up the daughter and she states that the daughter is usually alert and able to walk around the house without difficulty. Here in the ER the patient cannot stand up without being dizzy or altered. - Rectally her temperature is 100.2. Borderline elevated temperature. Attempted to perform LP on the patient without success because patient was jumping around the bed and would not stay still. - Did not want to sedate her for the procedure because we were essentially trying to find out the reason why she was somnolent and sedated and did not want her sedation to be from an iatrogenic cause. - Will call Dr. Kuo again to ask if he wants us to sedate her again to re attempt the tap, or treat the infection empirically, or admit her and have IR attempt the procedure. *DC/Admit/Observation/Transfer Diagnosis at time of Disposition: Seizure, Hypertension, Somnolence - Discharge Dispostion Disposition: HOME Condition at time of disposition: Improved Decision to Admit order: No - Prescriptions Prescriptions: levETIRAcetam [Keppra -] 500 mg PO BID 10 Days #20 tablet - Referrals Referrals: Rolando Kuo MD [Staff Physician] - Hannah Sanchez MD [Staff Physician] - - Patient Instructions Printed Discharge Instructions: DI for Seizure Disorder -- Adult Additional Instructions: You came into the ED after having a seizure. You also had high blood pressure. We believe this is because you have not taken your seizure or blood pressure medications. We sent a prescription for keppra to your pharmacy. Please make sure to go and pick it up. YOU MUST CALL DR. KUO AND SCHEDULE AN URGENT FOLLOW UP APPOINTMENT WITH HIM SOON POSSIBLE. Please also schedule a follow up appointment with your primary care doctor in the next 3 to 5 days to make sure you are getting better and being taken care of. We noticed you have an abnormal cyst on your ovary. Please follow up with a technical marketing consultant to further evaluate this. Come back to the ER immediately if your pain worsens, you have another seizure, or have any other new or worsening concerns. Thank you for coming to the [facility] ER. We hope you feel better soon! Print Language: NORWEGIAN - Post Discharge Activity
--- NOTE | 2018-04-04 11:09 | PDOC ---
Attending Attestation - Resident Resident Name: Javier Manzanares - ED Attending Attestation I have performed the following: I have examined & evaluated the patient, The case was reviewed & discussed with the resident, I agree w/resident's findings & plan, Exceptions are as noted - HPI HPI: 04/04/18 11:48 62y F hx of cad (NSTEMI), asthma, DMII, HTN, presents s/p seizure. Witnessed by daughter per EMS, lasting approx 3 minutes. has been feeling unwell today feeling nauseus and tired. Pt notes she was fine last night. does not recall having a seizure. denies any current headache, vision changes, numbness/ tingling/weakness, neck pain, back pain, chest pain. denies any drug use. no tongue biting or urinary/bowel incontinence. GENERAL: The patient is somnolent but easily arousable to voice fully oriented, Nontoxic - in no acute distress. HEAD: Normocephalic, atraumatic. EYES: pupils 2mm bilaterally and reactive to light, ENT: Normal voice, Moist mucous membranes. NECK: Normal range of motion, supple LUNGS: Breath sounds equal, clear to auscultation bilaterally. No wheezes, no rhonchi, no rales. HEART: Regular rate and rhythm, normal S1 and S2 without murmur, rub or gallop. ABDOMEN: Soft, nontender, normoactive bowel sounds. No guarding, no rebound. . No CVA tenderness EXTREMITIES: Normal range of motion, no edema. No clubbing or cyanosis. No cords, erythema, or tenderness. NEUROLOGICAL: No facial assymetry, Normal speech, moving all 4 extremities spontaneously and symmetrically PSYCH: Normal mood, normal affect. SKIN: Warm, Dry, normal turgor, - Physicial Exam PE: 04/04/18 18:06 seea yony - Medical Decision Making 04/04/18 11:48 ddx - seizure w prolonged post ictal period, pontine bleed, toxic ingestion, metabolic derangement will ck CT head, labs fliuds ekg narcan .4mg was given for diangosistic purposes without any improvement of her mental status 04/04/18 13:[address] head neg CT abd noted for abnoramlity in R inferior pelvis - wiol obtain US to further evaluate pts mental status seems improved, awake, answering questions, seems to be back at baseline will dw neurology 04/04/18 14:29 pt does endorse not taking her meds recently due to insurance issues suspect her subtherapeutic keppra is the cause of her seizure. will refer to neuro for mangement of her seizure after loading her keppra will refer her o lead presser to fu for her pelvic CT findings 04/04/18 18:06 at discharge pt was persistently somnolent again low grade temp of 100.2 rectally - no signs of meningusmus - but will tap to r/o occult infection/meningitus as pt has low grade fever and is altered ?infection vs prolonged post ictal period consider observation for prolonged postictal period if MEntal status not improved 04/04/18 19:21 pt very agitated during LP unable to obtain any spinal fluid will dw neurology regarding plan awaiting nathan anticipate admission/observation Heart Score/ECG Review - ECG Impressions Comment:: 04/04/18 12:07 Twelve-lead EKG was performed and reviewed by me. There is normal sinus rhythm with a normal rate. Rate of 76 First degree AV block Normal axis No ST changes suggestive of acute ischemia Procedures - Consent Consent obtained: Written - Lumbar Puncture Indication: AMS CT Scan: Yes Betadine Prep: Yes Position: Left lateral decubitus Site: L4-L51 Local Anesthesia: 1% Lidocaine with epi Volume(ml): 0 Lumbar Puncture Kit: Adult Complications: Dry Tap
[2018-04-04] MEDS ORDERED: SODIUM CHLORIDE 1,000 ML IV ONE (11:22)
[2018-04-04] MEDS ORDERED: NALOXONE HCL 0.4 MG/ML VIAL IVPUSH ONE (11:50)
[2018-04-04] MEDS ORDERED: NALOXONE HCL 0.4 MG/ML VIAL ONE (11:52)
[2018-04-04 11:58] LABS: BASO % 0.7 % (0-2.0); EOS % 2.1 % (0-4.5); HEMATOCRIT 45.1 % (32.4-45.2); HEMOGLOBIN 15.2 GM/dL (10.7-15.3); LYMPH % 19.4 % (8-40); MCH 29.5 pg (25.7-33.7); MCHC 33.6 g/dl (32.0-36.0); MEAN CELL VOLUME 87.9 fl (80-96); MEAN PLT VOLUME 7.5 fl (7.5-11.1); MONO % 7.3 % (3.8-10.2); NEUT % 70.5 % (42.8-82.8); PLATELET COUNT 228 K/MM3 (134-434); RBC 5.13 M/mm3 (3.60-5.2); RDW 14.8 % (11.6-15.6); WHITE BLOOD COUNT 8.7 K/mm3 (4.0-10.0)
[2018-04-04 12:02] LABS: URINE APPEARANCE SLCLOUDY; URINE BILIRUBIN NEGATIVE (<2.0 mg/dL); URINE COLOR LTYELLOW; URINE GLUCOSE (UA) NEGATIVE (NEGATIVE); URINE KETONE NEGATIVE (NEGATIVE); URINE LEUK ESTERASE NEGATIVE (NEGATIVE); URINE NITRITE NEGATIVE (NEGATIVE); URINE PROTEIN 2+ (NEGATIVE); URINE UROBILINOGEN NEGATIVE mg/dL (0.2-1.0)
[2018-04-04 12:32] LABS: ALBUMIN 3.8 g/dl (3.4-5.0); ALK PHOS 77 U/L (45-117); ANION GAP 9 MMOL/L (8-16); BILIRUBIN,TOTAL 0.2 mg/dL (0.2-1); BLOOD UREA NITROGEN 11 mg/dL (7-18); CALCIUM 9.2 mg/dL (8.5-10.1); CHLORIDE 110 mmol/L (98-107); CO2 22 mmol/L (21-32); CREATININE 0.8 mg/dL (0.55-1.3); GLUCOSE,RANDOM 123 mg/dL (74-106); LIPASE 96 U/L (73-393); POTASSIUM 3.7 mmol/L (3.5-5.1); SGOT/AST 15 U/L (15-37); SGPT/ALT 17 U/L (13-61); SODIUM 142 mmol/L (136-145); TOT PROT 7.8 g/dl (6.4-8.2)
[2018-04-04 12:34] LABS: INR 1.08 (0.83-1.09); PROTHROMBIN TIME (PATIENT) 12.7 SEC (9.7-13.0)
[2018-04-04 12:36] LABS: EPI CELLS RARE /HPF (FEW); URINE HYALINE CAST 1 /lpf; URINE MUCUS RARE
[2018-04-04 13:02] LABS: COCAINE, UR NEGATIVE ng/ml (CUTOFF=300); METHADONE, UR NEGATIVE ng/ml (CUTOFF=300); OPIATES, URI NEGATIVE ng/ml (CUTOFF=300); PHENCYCLIDINE,URINE NEGATIVE ng/ml (CUTOFF=25); URINE AMPHETAMINES NEGATIVE ng/ml (CUTOFF=500); URINE BARBITURATES NEGATIVE ng/ml (CUTOFF=200); URINE BENZODIAZEPINES NEGATIVE ng/ml (CUTOFF=200)
[2018-04-04] MEDS ORDERED: LOSARTAN POTASSIUM 50 MG TABLET (FP) PO ONE (14:27)
[2018-04-04] MEDS ORDERED: dilTIAZem HCL 60 MG TABLET (FP) PO ONE (14:27)
[2018-04-04] MEDS ORDERED: levETIRAcetam 500 MG TABLET (FP) PO ONE (14:28)
[2018-04-04] MEDS ORDERED: levETIRAcetam 500 MG/5 ML INJECTION VIAL IVPB ONE ×3 (14:31→14:42)
[2018-04-04] MEDS ORDERED: dilTIAZem HCL 60 MG TABLET (FP) ONE (14:41)
--- NOTE | 2018-04-04 16:24 | EKG ---
Test Reason : Blood Pressure : / mmHG Vent. Rate : 076 BPM Atrial Rate : 076 BPM P-R Int : 266 ms QRS Dur : 078 ms QT Int : 404 ms P-R-T Axes : 087 054 067 degrees QTc Int : 454 ms SINUS RHYTHM WITH MARKED SINUS ARRHYTHMIA WITH 1ST DEGREE A-V BLOCK POSSIBLE LEFT ATRIAL ENLARGEMENT BORDERLINE ECG WHEN COMPARED WITH ECG OF 21-FEB-2018 17:14, [place] INTERVAL HAS INCREASED T WAVE INVERSION NO LONGER EVIDENT IN INFERIOR LEADS NONSPECIFIC T WAVE ABNORMALITY NOW EVIDENT IN LATERAL LEADS Confirmed by Antony Talavera ([id number]) on 04/04/2018 4:24:17 PM Referred By: Confirmed By:Antony Talavera
[2018-04-04] MEDS ORDERED: ACETAMINOPHEN 1000 MG/100 ML VIAL (NON FORMULARY) IVPB ONE (17:11)
[2018-04-04] MEDS ORDERED: ACETAMINOPHEN INJECTION 100 ML IVPB ONE (17:13)
[2018-04-04] MEDS ORDERED: LIDOCAINE 1%/EPI 1:100000 (20 ML MULTI DOSE VIAL) ONE (18:16)
[2018-04-04] MEDS ORDERED: LIDOCAINE HCL 1%, 10 MG/ML (20ML VIAL) ONE (18:48)
--- NOTE | 2018-04-04 19:31 | PDOC ---
*Physical Exam - Vital Signs Last Vital Signs Temp Pulse Resp BP Pulse Ox 97.9 F 84 18 129/61 94 L 04/04/18 10:40 04/04/18 19:14 04/04/18 19:14 04/04/18 19:14 04/04/18 19:14 ED Treatment Course - LABORATORY CBC & Chemistry Diagram: 04/04/18 11:32 04/04/18 11:32 - ADDITIONAL ORDERS Additional order review: Laboratory Results 04/04/18 04/04/18 04/04/18 11:53 11:32 11:32 PT with INR INR Sodium 142 Potassium 3.7 Chloride 110 H Carbon Dioxide 22 Anion Gap 9 BUN 11 Creatinine 0.8 Creat Clearance w eGFR > 60 Random Glucose 123 H Calcium 9.2 Total Bilirubin 0.2 AST 15 ALT 17 Alkaline Phosphatase 77 Creatine Kinase 175 Creatine Kinase Index 0.9 CK-MB (CK-2) 1.7 Troponin I 0.02 Total Protein 7.8 Albumin 3.8 Lipase 96 Urine Color Urine Appearance Urine pH Ur Specific [place] Urine Protein Urine Glucose (UA) Urine Ketones Urine Blood Urine Nitrite Urine Bilirubin Urine Urobilinogen Ur Leukocyte Esterase Urine WBC (Auto) Urine RBC (Auto) Ur Epithelial Cells Hyaline Casts Urine Mucus Opiates Screen Negative Methadone Screen Negative Barbiturate Screen Negative Phencyclidine Screen Negative Ur Amphetamines Screen Negative MDMA (Ecstasy) Screen Negative Benzodiazepines Screen Negative Cocaine Screen Negative U Marijuana (THC) Screen Positive A* Blood Type AB POSITIVE Antibody Screen Negative 04/04/18 04/04/18 11:32 11:20 PT with INR 12.70 INR 1.08 Sodium Potassium Chloride Carbon Dioxide Anion Gap BUN Creatinine Creat Clearance w eGFR Random Glucose Calcium Total Bilirubin AST ALT Alkaline Phosphatase Creatine Kinase Creatine Kinase Index CK-MB (CK-2) Troponin I Total Protein Albumin Lipase Urine Color Ltyellow Urine Appearance Slcloudy Urine pH 5.0 Ur Specific [place] 1.019 Urine Protein 2+ H Urine Glucose (UA) Negative Urine Ketones Negative Urine Blood 1+ H Urine Nitrite Negative Urine Bilirubin Negative Urine Urobilinogen Negative Ur Leukocyte Esterase Negative Urine WBC (Auto) 2 Urine RBC (Auto) 1 Ur Epithelial Cells Rare Hyaline Casts 1 Urine Mucus Rare Opiates Screen Methadone Screen Barbiturate Screen Phencyclidine Screen Ur Amphetamines Screen MDMA (Ecstasy) Screen Benzodiazepines Screen Cocaine Screen U Marijuana (THC) Screen Blood Type Antibody Screen 04/04/18 11:32 RBC 5.13 MCV 87.9 MCHC 33.6 RDW 14.8 MPV 7.5 Neutrophils % 70.5 D Lymphocytes % 19.4 D Monocytes % 7.3 Eosinophils % 2.1 D Basophils % 0.7 - Medications Given in the ED: ED Medications Discontinued Medications Generic Name Dose Route Start Last Admin Trade Name Riya PRN Reason Stop Dose Admin Acetaminophen 1,000 mg 04/04/18 17:11 04/04/18 17:18 Ofirmev Injection - IVPB 04/04/18 17:12 1,000 mg ONCE ONE Administration Diltiazem HCl 120 mg 04/04/18 14:27 04/04/18 15:13 Cardizem - PO 04/04/18 14:28 120 mg ONCE ONE Administration Sodium Chloride 1,000 mls @ 1,000 mls/hr 04/04/18 11:22 04/04/18 11:50 Normal Saline - IV 04/04/18 12:21 1,000 mls/hr .Q1H ONE Administration Levetiracetam 500 mg 04/04/18 14:28 04/04/18 15:13 Keppra - PO 04/04/18 14:29 Not Given ONCE ONE Levetiracetam 1,000 mg 04/04/18 14:31 04/04/18 14:55 Keppra Injection - IVPB 04/04/18 14:32 1,000 mg ONCE ONE Administration Losartan Potassium 50 mg 04/04/18 14:27 04/04/18 15:13 Cozaar - PO 04/04/18 14:28 50 mg ONCE ONE Administration Naloxone HCl 0.4 mg 04/04/18 11:50 04/04/18 11:56 Narcan - IVPUSH 04/04/18 11:51 0.4 mg ONCE ONE Administration Medical Decision Making - Medical Decision Making 04/04/18 19:[address] Angel who knows the patient from one previous admission, he does admit that he does not see her in the office. Initial tap was unsuccessful, at this time after discussion with neurology it was decided that patient would be observed as sedating her would hinder further observation in regards to her mental status. Repeat rectal temperature will be performed as well as a repeat bedside evaluation. Should she have any significant change repeat lumbar puncture with necessary sedation will be reconsidered. She will be admitted to medical service for observation. *DC/Admit/Observation/Transfer Diagnosis at time of Disposition: Seizure, Hypertension, Somnolence - Discharge Dispostion Disposition: HOME Condition at time of disposition: Improved - Prescriptions Prescriptions: levETIRAcetam [Keppra -] 500 mg PO BID 10 Days #20 tablet - Referrals Referrals: Rolando Angel MD [Staff Physician] - Hannah Sanchez MD [Staff Physician] - - Patient Instructions Printed Discharge Instructions: DI for Seizure Disorder -- Adult Additional Instructions: You came into the ED after having a seizure. You also had high blood pressure. We believe this is because you have not taken your seizure or blood pressure medications. We sent a prescription for keppra to your pharmacy. Please make sure to go and pick it up. YOU MUST CALL DR. ANGEL AND SCHEDULE AN URGENT FOLLOW UP APPOINTMENT WITH HIM SOON POSSIBLE. Please also schedule a follow up appointment with your primary care doctor in the next 3 to 5 days to make sure you are getting better and being taken care of. We noticed you have an abnormal cyst on your ovary. Please follow up with a building analyst/supervisor to further evaluate this. Come back to the ER immediately if your pain worsens, you have another seizure, or have any other new or worsening concerns. Thank you for coming to the [facility] ER. We hope you feel better soon! Print Language: E[employer] [place] - Post Discharge Activity
--- NOTE | 2018-04-04 19:32 | PDOC ---
*Physical Exam - Vital Signs Last Vital Signs Temp Pulse Resp BP Pulse Ox 97.9 F 84 18 129/61 94 L 04/04/18 10:40 04/04/18 19:14 04/04/18 19:14 04/04/18 19:14 04/04/18 19:14 ED Treatment Course - LABORATORY CBC & Chemistry Diagram: 04/04/18 11:32 04/04/18 11:32 - ADDITIONAL ORDERS Additional order review: Laboratory Results 04/04/18 04/04/18 04/04/18 11:53 11:32 11:32 PT with INR INR Sodium 142 Potassium 3.7 Chloride 110 H Carbon Dioxide 22 Anion Gap 9 BUN 11 Creatinine 0.8 Creat Clearance w eGFR > 60 Random Glucose 123 H Calcium 9.2 Total Bilirubin 0.2 AST 15 ALT 17 Alkaline Phosphatase 77 Creatine Kinase 175 Creatine Kinase Index 0.9 CK-MB (CK-2) 1.7 Troponin I 0.02 Total Protein 7.8 Albumin 3.8 Lipase 96 Urine Color Urine Appearance Urine pH Ur Specific [place] Urine Protein Urine Glucose (UA) Urine Ketones Urine Blood Urine Nitrite Urine Bilirubin Urine Urobilinogen Ur Leukocyte Esterase Urine WBC (Auto) Urine RBC (Auto) Ur Epithelial Cells Hyaline Casts Urine Mucus Opiates Screen Negative Methadone Screen Negative Barbiturate Screen Negative Phencyclidine Screen Negative Ur Amphetamines Screen Negative MDMA (Ecstasy) Screen Negative Benzodiazepines Screen Negative Cocaine Screen Negative U Marijuana (THC) Screen Positive A* Blood Type AB POSITIVE Antibody Screen Negative 04/04/18 04/04/18 11:32 11:20 PT with INR 12.70 INR 1.08 Sodium Potassium Chloride Carbon Dioxide Anion Gap BUN Creatinine Creat Clearance w eGFR Random Glucose Calcium Total Bilirubin AST ALT Alkaline Phosphatase Creatine Kinase Creatine Kinase Index CK-MB (CK-2) Troponin I Total Protein Albumin Lipase Urine Color Ltyellow Urine Appearance Slcloudy Urine pH 5.0 Ur Specific [place] 1.019 Urine Protein 2+ H Urine Glucose (UA) Negative Urine Ketones Negative Urine Blood 1+ H Urine Nitrite Negative Urine Bilirubin Negative Urine Urobilinogen Negative Ur Leukocyte Esterase Negative Urine WBC (Auto) 2 Urine RBC (Auto) 1 Ur Epithelial Cells Rare Hyaline Casts 1 Urine Mucus Rare Opiates Screen Methadone Screen Barbiturate Screen Phencyclidine Screen Ur Amphetamines Screen MDMA (Ecstasy) Screen Benzodiazepines Screen Cocaine Screen U Marijuana (THC) Screen Blood Type Antibody Screen 04/04/18 11:32 RBC 5.13 MCV 87.9 MCHC 33.6 RDW 14.8 MPV 7.5 Neutrophils % 70.5 D Lymphocytes % 19.4 D Monocytes % 7.3 Eosinophils % 2.1 D Basophils % 0.7 - Medications Given in the ED: ED Medications Discontinued Medications Generic Name Dose Route Start Last Admin Trade Name Riya PRN Reason Stop Dose Admin Acetaminophen 1,000 mg 04/04/18 17:11 04/04/18 17:18 Ofirmev Injection - IVPB 04/04/18 17:12 1,000 mg ONCE ONE Administration Diltiazem HCl 120 mg 04/04/18 14:27 04/04/18 15:13 Cardizem - PO 04/04/18 14:28 120 mg ONCE ONE Administration Sodium Chloride 1,000 mls @ 1,000 mls/hr 04/04/18 11:22 04/04/18 11:50 Normal Saline - IV 04/04/18 12:21 1,000 mls/hr .Q1H ONE Administration Levetiracetam 500 mg 04/04/18 14:28 04/04/18 15:13 Keppra - PO 04/04/18 14:29 Not Given ONCE ONE Levetiracetam 1,000 mg 04/04/18 14:31 04/04/18 14:55 Keppra Injection - IVPB 04/04/18 14:32 1,000 mg ONCE ONE Administration Losartan Potassium 50 mg 04/04/18 14:27 04/04/18 15:13 Cozaar - PO 04/04/18 14:28 50 mg ONCE ONE Administration Naloxone HCl 0.4 mg 04/04/18 11:50 04/04/18 11:56 Narcan - IVPUSH 04/04/18 11:51 0.4 mg ONCE ONE Administration Medical Decision Making - Medical Decision Making 04/04/18 19:29 The patient was signed out to me by Dr. Chatterjee. The patient is a 42F who presents with seizures and is consistently somnolent. LP attempted. Case d/w Dr. Angel who states that he agrees with admission but not to repeat the LP unless she continues a temperature increase. Will d/w admitting team. 04/04/18 19:34 Pt seen at bedside who is somnolent and sometimes falls asleep during reexamination but is easily arousable. Microblogged for admission. 04/04/18 20:[address] Walker for admission. *DC/Admit/Observation/Transfer Diagnosis at time of Disposition: Seizure, Hypertension, Somnolence - Discharge Dispostion Condition at time of disposition: Guarded Decision to Admit order: Yes Decision to Admit order Date/Time: Decision to Admit Order Category Date Time Status Decision to Admit to Hospital Routine Admission 04/04/18 19:31 Ordered - Prescriptions Prescriptions: levETIRAcetam [Keppra -] 500 mg PO BID 10 Days #20 tablet - Referrals Referrals: Rolando Angel MD [Staff Physician] - Hannah Sanchez MD [Staff Physician] - - Patient Instructions Printed Discharge Instructions: DI for Seizure Disorder -- Adult Additional Instructions: You came into the ED after having a seizure. You also had high blood pressure. We believe this is because you have not taken your seizure or blood pressure medications. We sent a prescription for keppra to your pharmacy. Please make sure to go and pick it up. YOU MUST CALL DR. ANGEL AND SCHEDULE AN URGENT FOLLOW UP APPOINTMENT WITH HIM SOON POSSIBLE. Please also schedule a follow up appointment with your primary care doctor in the next 3 to 5 days to make sure you are getting better and being taken care of. We noticed you have an abnormal cyst on your ovary. Please follow up with a syrup mixer to further evaluate this. Come back to the ER immediately if your pain worsens, you have another seizure, or have any other new or worsening concerns. Thank you for coming to the [facility] ER. We hope you feel better soon! Print Language: [place] CITIZEN - Post Discharge Activity
[2018-04-04] MEDS ORDERED: ALBUTEROL SO4 0.083% IH SOL 2.5 MG/3 ML VIAL.NEB. NEB PRN (20:55)
--- NOTE | 2018-04-04 20:58 | HP ---
CHIEF COMPLAINT:seizure PCP:Dr. Freeman HISTORY OF PRESENT ILLNESS: Patient is a 62 year old female with past medical history of NSTEMI, asthma, HTN , and seizure disorder, BIBEMS due to witnessed seizure. Patient does not recall anything that had happened today. According to EMS, patient had a seizure earlier today as witnessed by her daughter, which lasted about 3 minutes , and daughter immediately called EMS. Patient reported not having taken all her medications, including Keppra, in the last 3 days due to issues with her insurance. She also noted feeling tired and weak in the last few days. Otherwise , patient denies any fever, chills, headache, dizziness, nausea, vomiting, chest pain, SOB, abdominal pain, diarrhea, urinary symptoms. Neuro was consulted by the ED with recommendations to load her with Keppra and discharge, but patient remained somnolent. ER course was notable for: (1)Keppra 1000mg IV given (2) (3) Recent Travel:denies PAST MEDICAL HISTORY: NSTEMI asthma HTN seizure disorder PAST SURGICAL HISTORY: Unknown Social History: Smoking:smokes 4 sticks per day Alcohol:occasional Drugs:marijuana, last smoked 3 days ago Family History: Allergies Penicillins Allergy (Unknown, Verified 02/21/18 20:11) HOME MEDICATIONS: Home Medications Medication Instructions Recorded Albuterol Sulfate Inhaler - 1 - 2 inh PO QID PRN #1 inhaler 10/31/17 [Ventolin HFA Inhaler -] Montelukast Sodium [Singulair] 10 mg PO DAILY #30 tablet 10/31/17 Diltiazem HCl [Diltiazem 24Hr ER] 120 mg PO DAILY 02/22/18 Rosuvastatin [Crestor -] 10 mg PO DAILY 02/22/18 levETIRAcetam [Keppra -] 500 mg PO BID 30 Days #60 tablet 02/23/18 Aspirin [ASA -] 81 mg PO DAILY #30 tab.chew 02/24/18 Losartan Potassium 50 mg PO DAILY 30 Days #30 tablet 02/24/18 levETIRAcetam [Keppra -] 500 mg PO BID 10 Days #20 tablet 04/04/18 REVIEW OF SYSTEMS CONSTITUTIONAL: Absent: fever, chills, diaphoresis, generalized weakness, malaise, loss of appetite, weight change HEENT: Absent: rhinorrhea, nasal congestion, throat pain, throat swelling, difficulty swallowing, mouth swelling, ear pain, eye pain, visual changes CARDIOVASCULAR: Absent: chest pain, syncope, palpitations, irregular heart rate, lightheadedness , peripheral edema RESPIRATORY: Absent: cough, shortness of breath, dyspnea with exertion, orthopnea, wheezing, stridor, hemoptysis GASTROINTESTINAL: Absent: abdominal pain, abdominal distension, nausea, vomiting, diarrhea, constipation, melena, hematochezia GENITOURINARY: Absent: dysuria, frequency, urgency, hesitancy, hematuria, flank pain, genital pain MUSCULOSKELETAL: Absent: myalgia, arthralgia, joint swelling, back pain, neck pain SKIN: Absent: rash, itching, pallor HEMATOLOGIC/IMMUNOLOGIC: Absent: easy bleeding, easy bruising, lymphadenopathy, frequent infections ENDOCRINE: Absent: unexplained weight gain, unexplained weight loss, heat intolerance, cold intolerance NEUROLOGIC: Absent: headache, focal weakness or paresthesias, dizziness, unsteady gait, seizure, mental status changes, bladder or bowel incontinence PSYCHIATRIC: Absent: anxiety, depression, suicidal or homicidal ideation, hallucinations. PHYSICAL EXAMINATION Vital Signs - 24 hr 04/04/18 04/04/18 04/04/18 10:40 14:11 19:14 Temperature 97.9 F Pulse Rate 86 Pulse Rate [ 88 84 Apical] Respiratory 16 20 18 Rate Blood Pressure 162/93 Blood Pressure 176/102 H 129/61 [Right Arm] O2 Sat by Pulse 100 94 L Oximetry (%) GENERAL: Somnolent, arousable to voice, in no acute distress. HEAD: Normal with no signs of trauma. EYES: PERRLA, EOMI, sclera anicteric, conjunctiva clear. EARS, NOSE, THROAT: Ears normal, oropharynx clear without exudates. Dry mucous membranes. NECK: Normal range of motion, supple without lymphadenopathy. LUNGS: +scattered wheezes bilaterally HEART: Regular rate and rhythm, normal S1 and S2 without murmur, rub or gallop. ABDOMEN: Soft, nontender, not distended, normoactive bowel sounds. MUSCULOSKELETAL: Normal range of motion at all joints. No bony deformities or tenderness. UPPER EXTREMITIES: 2+ pulses, warm, well-perfused. No peripheral edema. LOWER EXTREMITIES: 2+ pulses, warm, well-perfused. No peripheral edema. NEUROLOGICAL: Somnolent, arousable to voice, Cranial nerves II-XII intact. Sensation intact, Motor 5/5 on all extremities. Normal speech. Gait not observed PSYCHIATRIC: Cooperative. Good eye contact. Appropriate mood and affect. SKIN: Warm, dry, normal turgor, no rashes or lesions noted. Laboratory Results - last 24 hr 04/04/18 04/04/18 04/04/18 11:20 11:32 11:32 WBC 8.7 RBC 5.13 Hgb 15.2 Hct 45.1 MCV 87.9 MCH 29.5 MCHC 33.6 RDW 14.8 Plt Count 228 MPV 7.5 Absolute Neuts (auto) 6.1 Neutrophils % 70.5 D Lymphocytes % 19.4 D Monocytes % 7.3 Eosinophils % 2.1 D Basophils % 0.7 Nucleated RBC % 0 PT with INR 12.70 INR 1.08 Sodium Potassium Chloride Carbon Dioxide Anion Gap BUN Creatinine Creat Clearance w eGFR Random Glucose Calcium Total Bilirubin AST ALT Alkaline Phosphatase Creatine Kinase Creatine Kinase Index CK-MB (CK-2) Troponin I Total Protein Albumin Lipase Urine Color Ltyellow Urine Appearance Slcloudy Urine pH 5.0 Ur Specific [place] 1.019 Urine Protein 2+ H Urine Glucose (UA) Negative Urine Ketones Negative Urine Blood 1+ H Urine Nitrite Negative Urine Bilirubin Negative Urine Urobilinogen Negative Ur Leukocyte Esterase Negative Urine WBC (Auto) 2 Urine RBC (Auto) 1 Ur Epithelial Cells Rare Hyaline Casts 1 Urine Mucus Rare Opiates Screen Methadone Screen Barbiturate Screen Phencyclidine Screen Ur Amphetamines Screen MDMA (Ecstasy) Screen Benzodiazepines Screen Cocaine Screen U Marijuana (THC) Screen Blood Type Antibody Screen 04/04/18 04/04/18 04/04/18 11:32 11:32 11:53 WBC RBC Hgb Hct MCV MCH MCHC RDW Plt Count MPV Absolute Neuts (auto) Neutrophils % Lymphocytes % Monocytes % Eosinophils % Basophils % Nucleated RBC % PT with INR INR Sodium 142 Potassium 3.7 Chloride 110 H Carbon Dioxide 22 Anion Gap 9 BUN 11 Creatinine 0.8 Creat Clearance w eGFR > 60 Random Glucose 123 H Calcium 9.2 Total Bilirubin 0.2 AST 15 ALT 17 Alkaline Phosphatase 77 Creatine Kinase 175 Creatine Kinase Index 0.9 CK-MB (CK-2) 1.7 Troponin I 0.02 Total Protein 7.8 Albumin 3.8 Lipase 96 Urine Color Urine Appearance Urine pH Ur Specific [place] Urine Protein Urine Glucose (UA) Urine Ketones Urine Blood Urine Nitrite Urine Bilirubin Urine Urobilinogen Ur Leukocyte Esterase Urine WBC (Auto) Urine RBC (Auto) Ur Epithelial Cells Hyaline Casts Urine Mucus Opiates Screen Negative Methadone Screen Negative Barbiturate Screen Negative Phencyclidine Screen Negative Ur Amphetamines Screen Negative MDMA (Ecstasy) Screen Negative Benzodiazepines Screen Negative Cocaine Screen Negative U Marijuana (THC) Screen Positive A* Blood Type AB POSITIVE Antibody Screen Negative ASSESSMENT/PLAN: Patient is a 62 year old female with past medical history of NSTEMI, asthma, HTN , and seizure disorder, BIBEMS due to witnessed seizure. #AMS likely post-ictal 2/2 seizure disorder -likely 2/2 medication noncompliance -EKG: sinus rhythm with 1st degree AV block -Utox: +marijuana -Neuro checks q2h -seizure precaution -HOB >45 -fall precaution -Neurology (Dr. Kuo) consulted. -Continue Keppra 500mg BID #Hypertension -Continue Cardizem 120mg daily -Losartan 50mg daily #Chronic infarcts on MRI -Continue home ASA 81mg, [id number] mg -Head CT: small bilateral chronic changes #Asthma -Continue home Montelukast 10mg daily -Albuterol nebs PRN #Complex right adnexal cyst on CT AP -follow-up with LAW CLERK as outpatient #FEN -Not on any standing fluids -Electrolytes wnl, routine bmp monitoring -Sodium controlled diet #Prophylaxis -Heparin 5000 units sq tid #Disposition -full code -tele obs Visit type - Emergency Visit Emergency Visit: Yes ED Registration Date: 04/04/18 Care time: The patient presented to the Emergency Department on the above date and was hospitalized for further evaluation of their emergent condition. - New Patient This patient is new to me today: Yes Date on this admission: 04/05/18 - Critical Care Critical Care patient: No
--- NOTE | 2018-04-04 21:17 | PN ---
Teaching Attending Note Name of Resident: Lexie Odell ATTENDING PHYSICIAN STATEMENT I saw and evaluated the patient. I reviewed the resident's note and discussed the case with the resident. I agree with the resident's findings and plan as documented. SUBJECTIVE: Seen and examined; please see resident note for further historical details. Briefly, this is a 62 y/o female who presents with seizure and who had a prolonged post-ictal state. She is doing well when we saw her in the ER and the post-ictal state appeared to be resolving. She was alert and keenly responsive, following commands, pleasant, and conversant. She denies any recollection of the seizure, etc. She tells me that due to some issue with her insurance that she has been unable to pay for her keppra as an outpatient, thus she hasn't had any in 3 days. LP attempted in ER; events noted. Dr. Kuo contacted by ER and is aware of patient; appreciate expert consultation. She was given keppra in the ER and no further sz activity was noted. Will monitor the patient on the floor. 10 sys ROS done and negative aside from HPI PMH, PSH, FH, Social Hx reviewed Medication list pending reconciliation OBJECTIVE: VS, labs, imaging reviewed NAD, AAO, resting comfortably in bed NC AT EOMI PERRLA CN2-12 wnl, no fnd, normal strength and sensorium all 4 extremities, normal tone. Normal mentation. RRR s1/2 no mgr Lungs CTAB, w/ sym exp NT ND +BS Normal mood, appropriate behavior Labs show unremarkable CBC, chemistry Imaging reviewed Prior MRI reviewed Prior consultations reviewed ASSESSMENT AND PLAN: Patient presents with a seizure and a prolonged post-ictal state. Though it isn 't documented under vitals at this juncture I am told she was briefly febrile as well. 1) Seizure with prolonged post-ictal state -Resolving; followup on neurological consultation and monitor on medicine service -Neuro checks and seizure precautions -Continue Keppra as per neurology -Consider social work consult for insurance issues; breakthrough seizure likely due to medication non-compliance due to the history provided 2) CAD hx -Reviewed chart; no acute issues. Continue all home meds without any changes 3) HTN -Uncontrolled at baseline per old notes; continue home meds. Adjust as needed
[2018-04-04] MEDS ORDERED: levETIRAcetam 500 MG TABLET (FP) PO SCH (22:00)
[2018-04-04] MEDS ORDERED: MONTELUKAST NA 10 MG TABLET PO SCH (22:00)
[2018-04-04] MEDS ORDERED: HEPARIN NA (PORCINE) 5,000 UNITS/ML 1ML VIAL SQ SCH (22:00)
[2018-04-04] MEDS ORDERED: INSULIN SLIDING SCALE (NOVOLOG) 1 VIAL SQ SCH (22:00)
[2018-04-04] MEDS ORDERED: MONTELUKAST NA 10 MG TABLET ONE (22:30)
[2018-04-04] MEDS ORDERED: HEPARIN NA (PORCINE) 5,000 UNITS/ML 1ML VIAL ONE (22:30)
[2018-04-04] MEDS: HEPARIN NA (PORCINE) 5,000 UNITS/ML 1ML VIAL SQ SCH (22:43)
[2018-04-05 01:25] VITALS: BMI 28.9
[2018-04-05] MEDS ORDERED: BENZOCAINE/MENTH/CETYLPYRD CL 1 EACH LOZENGE MM PRN (04:35)
[2018-04-05] MEDS: HEPARIN NA (PORCINE) 5,000 UNITS/ML 1ML VIAL SQ SCH ×2 (05:32→14:09)
[2018-04-05 07:29] LABS: BASO % 0.7 % (0-2.0); EOS % 3.3 % (0-4.5); HEMATOCRIT 40.5 % (32.4-45.2); HEMOGLOBIN 13.8 GM/dL (10.7-15.3); LYMPH % 51.8 % (8-40); MCH 29.4 pg (25.7-33.7); MEAN CELL VOLUME 86.4 fl (80-96); MEAN PLT VOLUME 8.2 fl (7.5-11.1); MONO % 7.9 % (3.8-10.2); NEUT % 36.3 % (42.8-82.8); PLATELET COUNT 214 K/MM3 (134-434); RBC 4.69 M/mm3 (3.60-5.2); RDW 14.5 % (11.6-15.6)
[2018-04-05 07:58] LABS: ALBUMIN 3.4 g/dl (3.4-5.0); ALK PHOS 66 U/L (45-117); ANION GAP 7 MMOL/L (8-16); BILIRUBIN,TOTAL 0.6 mg/dL (0.2-1); BLOOD UREA NITROGEN 9 mg/dL (7-18); CALCIUM 8.6 mg/dL (8.5-10.1); CHLORIDE 107 mmol/L (98-107); CO2 26 mmol/L (21-32); CREATININE 0.7 mg/dL (0.55-1.3); GLUCOSE,RANDOM 82 mg/dL (74-106); MAGNESIUM 2.2 mg/dL (1.8-2.4); POTASSIUM 3.2 mmol/L (3.5-5.1); SGOT/AST 14 U/L (15-37); SGPT/ALT 12 U/L (13-61); SODIUM 140 mmol/L (136-145); TOT PROT 6.9 g/dl (6.4-8.2)
[2018-04-05] MEDS ORDERED: POTASSIUM CHLORIDE TABS 20 MEQ TABLET.ER (FP) PO ONE (08:45)
[2018-04-05] MEDS ORDERED: ASPIRIN 81 MG CHEWABLE TABLETS PO SCH (10:00)
[2018-04-05] MEDS ORDERED: ROSUVASTATIN CA 10 MG TABLET (FP) PO SCH (10:00)
[2018-04-05] MEDS ORDERED: levETIRAcetam 500 MG TABLET (FP) PO SCH (10:00)
[2018-04-05] MEDS ORDERED: LOSARTAN POTASSIUM 50 MG TABLET (FP) PO SCH (10:00)
--- NOTE | 2018-04-05 11:46 | CONSULT ---
Consult - text type - Consultation Consultation Note: NEUROLOGY CONSULTATION is greatly appreciated: Events reviewed. Patient examined. This 62 yo LH single woman lives with daughter. PMhx of HTN, Chol, Asthma, COPD , and ASHD is s/p MR, NSTEMI, nicotine dependence and recreational marijuana use here after witnessed seizure activity by daughter. She is followed as outpatient by Dr. Browne. Medications include: albuterol, montelukast, diltiazem, rosuvastatin, levetiracetam 500 mg bid, asa 81, losartan Yesterday evening she reports she was sleeping in bed and in USOH, until daughter alerted by generalized Tonic-clonic seizure activity reportedly for 3 minutes with a prolonged post-ictal state.Pt is amnestic for most of these events. She does not recall going outside, transport to the hospital or her stay in the ED where she was loaded with Keppra. She reports her insurance has been an issue and she has not taken her seizure medication or blood pressure medication for the past two days. 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 MRI of brain (02/22/18): shows atrophy and diffuse, confluent, periventricular microvascular changes and a discrete L basal ganglia lacune. EKG: sinus with 1st degree AV block Now patient feels fine but "doesn't know what happened" HERSON: BP on admission 176/102-> 130-150s/60 Cor reg. No bruits. No head trauma. No tongue biting NEURO: MS/speech: Normal CN II-XII: normal without Nystagmus Motor: No drift or tremor. Normal strength, bulk tone and reflexes except absent AJ's. Toes downgoing. Normal HEATHER's Coord: No FTN dystaxia. Sensory: Normal Gait: sl wide-based. IMP: Seizure Disorder SUGGEST: Continue levetiracetam 500 mg PO q 12 hrs. Out patient neuro f/u and EEG Cardiology consultation. Telemetry. Encourage compliance with medication
[2018-04-05 14:53] VITALS: BP 125/79; PULSE 88; TEMP 98.5
--- NOTE | 2018-04-05 15:02 | PN ---
Teaching Attending Note Name of Resident: Omar Trujillo ATTENDING PHYSICIAN STATEMENT I saw and evaluated the patient. I reviewed the resident's note and discussed the case with the resident. I agree with the resident's findings and plan as documented. SUBJECTIVE: Feeling well - no complaints. No headache/visual disturbance. No limb numbness/weakness/tingling. OBJECTIVE: Afebrile, Hemodynamically Stable. Last Vital Signs Temp Pulse Resp BP Pulse Ox 98.5 F 88 18 125/79 96 04/05/18 14:56 04/05/18 14:56 04/05/18 14:56 04/05/18 14:56 04/05/18 09:00 HEENT - Atraumatic, Normocephalic. Heart - S1, S2, RRR Lungs - clear to auscultation, no crackles/wheeze Abdomen - Soft, non-tender. Bowel Sounds normal. Extremities - no edema, no calf tenderness Neuro - AAO x 3. Tone/Power normal all 4 extremities. Laboratory Results - last 24 hr 04/04/18 04/05/18 04/05/18 22:49 06:20 06:20 WBC 8.0 RBC 4.69 Hgb 13.8 Hct 40.5 MCV 86.4 MCH 29.4 MCHC 34.0 RDW 14.5 Plt Count 214 MPV 8.2 Absolute Neuts (auto) 2.9 Neutrophils % 36.3 L D Lymphocytes % 51.8 H D Monocytes % 7.9 Eosinophils % 3.3 Basophils % 0.7 Nucleated RBC % 0 Sodium 140 Potassium 3.2 L Chloride 107 Carbon Dioxide 26 Anion Gap 7 L BUN 9 Creatinine 0.7 Creat Clearance w eGFR > 60 Random Glucose 82 Calcium 8.6 Phosphorus 3.0 Magnesium 2.2 Total Bilirubin 0.6 AST 14 L ALT 12 L Alkaline Phosphatase 66 Total Protein 6.9 Albumin 3.4 Influenza A (Rapid) Negative Influenza B (Rapid) Negative Current Medications Generic Name Dose Route Start Last Admin Trade Name Freq PRN Reason Stop Dose Admin Albuterol Sulfate 1 amp 04/04/18 20:55 Ventolin 0.083% Nebulizer Soln - NEB Q6H PRN SHORT OF BREATH/WHEEZING Aspirin 81 mg 04/05/18 10:00 04/05/18 09:35 Asa - PO 81 mg DAILY KOJO Administration Benzocaine/Menthol 1 each 04/05/18 04:35 04/05/18 05:32 Cepacol Lozenge - MM 1 each PRN PRN Administration SORE THROAT Diltiazem HCl 120 mg 04/05/18 10:00 04/05/18 09:35 Cardizem Cd - PO 120 mg DAILY KOJO Administration Heparin Sodium (Porcine) 5,000 unit 04/04/18 22:00 04/05/18 14:09 Heparin - SQ 5,000 unit TID KOJO Administration Levetiracetam 500 mg 04/05/18 10:00 04/05/18 09:35 Keppra - PO 500 mg BID KOJO Administration Losartan Potassium 50 mg 04/05/18 10:00 04/05/18 09:35 Cozaar - PO 50 mg DAILY KOJO Administration Montelukast Sodium 10 mg 04/04/18 22:00 04/04/18 22:44 Singulair - PO 10 mg HS KOJO Administration Rosuvastatin Calcium 10 mg 04/05/18 10:00 04/05/18 09:35 Crestor - PO 10 mg DAILY KOJO Administration ASSESSMENT AND PLAN: 62 year old female with history of HTN, Asthma/COPD, CAD s/p NM 11/08, Asthma/ COPD, Hx of CVA, Seizure Disorder, BIBEMS after witnessed tonic-clonic seizure by her daughter. 1. Acute Encephalopathy secondary to Seizure with prolonged post-ictal state - Resolved. Breakthrough seizure secondary to non-compliance with anti-seizure meds due to insurance issues, now resolved. CT Head -chronic bilateral cerebellar infarcts, microvascular ischemic changes. Currently AAO x 3. No neurological deficit. Evaluated by Neuro - to continue Keppra For out-patient Neuro follow up. 2. CAD s/p recent NM No chest pain or ACS currently - for out-patient Cardiology follow up. Continue ASA, BHAVESH-I, Statin. 3. HTN - continue Cozaar, Cardizem. 4. Asthma/COPD - Stable. Continue Albuterol prn. 5. Incidental R complex cyst on abdominal imaging (CT A/P and TVUS) - asymptomatic - for out-patient Gynecology follow up - patient counselled. Medically and Neurologically stable for discharge with Neuro follow up. compliance with medications emphasized to patient.
--- NOTE | 2018-04-05 15:43 | DS ---
Physical Exam: SUBJECTIVE: Patient evaluated and without complaint. Patient is awake, alert and oriented. Patient had no acute events overnight. OBJECTIVE: Vital Signs Temperature 98.5 F 04/05/18 14:56 Pulse Rate 88 04/05/18 14:56 Respiratory Rate 18 04/05/18 14:56 Blood Pressure 125/79 04/05/18 14:56 O2 Sat by Pulse Oximetry (%) 96 04/05/18 09:00 PHYSICAL EXAM GENERAL: The patient is awake, alert, and fully oriented, in no acute distress. HEAD: Normal with no signs of trauma. EYES: PERRL, extraocular movements intact ENT: no tounge abrasions LUNGS: Breath sounds equal, clear to auscultation bilaterally, no wheezes HEART: Regular rate and rhythm, S1, S2 ABDOMEN: Soft, nontender, nondistended, normoactive bowel sounds, EXTREMITIES: 2+ pulses, warm, well-perfused, no edema. PSYCH: Normal mood, normal affect. SKIN: Warm, dry, normal turgor, no rashes or lesions noted. LABS CBC, BMP 04/05/18 06:20 04/05/18 06:20 HOSPITAL COURSE: Date of Admission:04/04/18 Patient admitted to the hospital post ictal. Patient had not been taking her medications for three days. Patient was seen by neurologist Dr. Kuo. Patient was treated with keppra for her seizure disorder. While in the ED she complained of abdominal pain. CT showed an oblong cyst with calcifications. Transvaginal US was completed and the cyst was evaluated. Patient should follow up with OBGYN as an outpatient to monitor the cyst. Patient stable and discharged home. Abd CT: nonspecific oblong tubular structure is noted within right inferior pelvis. Curvilinear wall calcification seen along ventral and dorsal borders. Transvaginal US: nonspecific complex right adnexal cyst, small amount of nonspecific fluid Head CT: no evidence of acute intracranial pathology Date of Discharge: 04/05/18 Minutes to complete discharge: 39 Discharge Summary Reason For Visit: SOMONLENCE,SEIZURE Condition: Stable - Instructions Diet, Activity, Other Instructions: You were admitted to the hospital after having a seizure. You also had high blood pressure. We believe this is because you have not taken your seizure or blood pressure medications. We sent a prescription for keppra to your pharmacy. Please make sure to go and pick it up. YOU MUST CALL DR. EDMONDS AND SCHEDULE AN URGENT FOLLOW UP APPOINTMENT WITH HIM SOON POSSIBLE. Please also schedule a follow up appointment with your primary care doctor in the next 3 to 5 days to make sure you are getting better and being taken care of. We noticed you have an abnormal cyst on your ovary. Please follow up with a plaster mechanic to further evaluate this. You will be referred by your PCP to a plaster mechanic. Please follow up with your primary care physician within one week. Come back to the ER immediately if your pain worsens, you have another seizure, or have any other new or worsening concerns. Referrals: Nitesh Browne MD [Staff Physician] - Hannah Sanchez MD [Staff Physician] - Disposition: HOME - Home Medications Comprehensive Discharge Medication List: Ambulatory Orders Albuterol Sulfate Inhaler - [Ventolin HFA Inhaler -] 1 - 2 inh PO QID PRN #1 inhaler 10/31/17 Montelukast Sodium [Singulair] 10 mg PO DAILY #30 tablet 10/31/17 Diltiazem HCl [Diltiazem 24Hr ER] 120 mg PO DAILY 02/22/18 Rosuvastatin [Crestor -] 10 mg PO DAILY 02/22/18 levETIRAcetam [Keppra -] 500 mg PO BID 30 Days #60 tablet 02/23/18 Aspirin [ASA -] 81 mg PO DAILY #30 tab.chew 02/24/18 Losartan Potassium 50 mg PO DAILY 30 Days #30 tablet 02/24/18 levETIRAcetam [Keppra -] 500 mg PO BID 10 Days #20 tablet 04/04/18 This patient is new to me today: No Emergency Visit: No Critical Care patient: No - Discharge Referral Referred to [facility] No
== END 2018-04-05 15:34 | disposition home or self-care (01) ==
LOC: JER 10:39 → JERBED 19:31 → J7W 04-05 01:02
PROVIDERS: ADMIT Internal Medicine
PROC: 3E033NZ Introduction of Analgesics, Hypnotics, Sedatives into Peripheral Vein, Percutaneous Approach (ICD-10-PCS; principal; 2018-04-04)
PROC: 3E0337Z Introduction of Electrolytic and Water Balance Substance into Peripheral Vein, Percutaneous Approach (ICD-10-PCS; 2018-04-04)
PROC: 3E033GC Introduction of Other Therapeutic Substance into Peripheral Vein, Percutaneous Approach (ICD-10-PCS; 2018-04-04)
PROC: 3E013GC Introduction of Other Therapeutic Substance into Subcutaneous Tissue, Percutaneous Approach (ICD-10-PCS; 2018-04-04)
DX: G40.419 Other generalized epilepsy and epileptic syndromes, intractable, without status epilepticus (principal); R40.0 Somnolence; I10 Essential (primary) hypertension; I25.10 Atherosclerotic heart disease of native coronary artery without angina pectoris; I25.2 Old myocardial infarction; E11.9 Type 2 diabetes mellitus without complications; E78.5 Hyperlipidemia, unspecified; F17.210 Nicotine dependence, cigarettes, uncomplicated; Z79.82 Long term (current) use of aspirin; Z88.0 Allergy status to penicillin; J45.909 Unspecified asthma, uncomplicated; G93.49 Other encephalopathy
CPT/HCPCS: 36415; 70450-TC; 71045-TC-FY; 74176-TC; 76830-TC; 80053; 80307; 81003; 81015; 82550; 82553; 83690; 83735; 84100; 84484; 85025; 85610; 86850; 86900; 86901; 87804; 93005; 93010; 96361; 96372; 96374; 96375; 99285-25; G0378; J0131; J1644; J7030

== ENCOUNTER 2018-05-08 10:53 | Inpatient (IN) | payer OTHER ==
[2018-05-08] MEDS ORDERED: ALBUTEROL SO4 2.5/IPRATROPIUM 0.5 INH SOL 3 ML VIAL.NEB. NEB ONE ×3 (11:04→13:54)
--- NOTE | 2018-05-08 11:39 | PDOC ---
History of Present Illness - General Chief Complaint: Shortness of Breath Stated Complaint: DIFFICULTY BREATHING Time Seen by Provider: 05/08/18 11:33 History Source: Patient Exam Limitations: No Limitations - History of Present Illness Initial Comments: HPI: 63 y/o female presenting to [facility] ER complaining of shortness of breath, cough, and chest pain since yesterday. Pt states the pain is substernal, is made worse with deep inspiration, and does not radiate to arms, neck, back, or abdomen. Cough is nonproductive. Shortness of breath feels like an air hunger. Pt reports her daughter was diagnosed with the flu. She does not cohabitate with this offspring but has been in close contact. Pt has a h/o of asthma managed with albuterol, duonebs, and other pumps (pt unable to recall names). States she has never been intubated. Has not been hospitalized in over a year for asthma symptoms. Does not recall the last time she was placed on steroids. Social Hx: - Tobacco: Everyday smoker, but has not been able to smoke since yesterday. Past History - Past Medical History Allergies/Adverse Reactions: Allergies Allergy/AdvReac Type Severity Reaction Status Date / Time No Known Allergies Allergy Verified 05/08/18 12:41 Home Medications: Ambulatory Orders Albuterol Sulfate Inhaler - [Ventolin HFA Inhaler -] 1 - 2 inh PO QID PRN #1 inhaler 10/31/17 Montelukast Sodium [Singulair] 10 mg PO DAILY #30 tablet 10/31/17 Diltiazem HCl [Diltiazem 24Hr ER] 120 mg PO DAILY 02/22/18 Rosuvastatin [Crestor -] 10 mg PO DAILY 02/22/18 levETIRAcetam [Keppra -] 500 mg PO BID 30 Days #60 tablet 02/23/18 Aspirin [ASA -] 81 mg PO DAILY #30 tab.chew 02/24/18 Losartan Potassium 50 mg PO DAILY 30 Days #30 tablet 02/24/18 Anemia: No Asthma: Yes Cancer: No Cardiac Disorders: Yes (?heart murmur as child) CVA: No COPD: No CHF: No Dementia: Yes ("FORGETFUL") Diabetes: No GI Disorders: No Disorders: No HTN: Yes Hypercholesterolemia: Yes Liver Disease: No Seizures: Yes (TODAY) Thyroid Disease: No - Surgical History Abdominal Surgery: No Appendectomy: No Cardiac Surgery: No Cholecystectomy: No Lung Surgery: No Neurologic Surgery: No Orthopedic Surgery: No - Immunization History Immunization Up to Date: Yes - Suicide/Smoking/Psychosocial Hx Smoking History: Never smoked Have you smoked in the past 12 months: No Number of Cigarettes Smoked Daily: 10 'Breaking Loose' booklet given: 10/26/17 Hx Alcohol Use: No Drug/Substance Use Hx: No Substance Use Type: Marijuana Hx Substance Use Treatment: No (denies) Review of Systems - Review of Systems Able to Perform ROS?: Yes Comments:: In addition to that documented in the HPI above, the additional ROS was obtained : Constitutional: Endorses chills and malaise. Denies fevers. Head: Endorses generalized headache. ENMT: Denies sore throat CV: Per HPI Resp: Per HPI GI: Denies vomiting or diarrhea : Denies painful urination MSK: Denies recent trauma Skin: Denies new rashes Neuro: Denies new numbness or tingling or weakness Endocrine: Denies polyuria Heme: Denies bleeding or bruising *Physical Exam - Vital Signs Last Vital Signs Temp Pulse Resp BP Pulse Ox 98.2 F 122 H 26 H 101/54 L 87 L 05/08/18 10:57 05/08/18 10:57 05/08/18 10:57 05/08/18 10:57 05/08/18 10:57 - Physical Exam Comments: Constitutional: Well-developed, well-nourished adult female in no acute distress but obvious discomfort. Found semi-fowlers on hospital bed. Alert and oriented x4. Answered all questions appropriately and completely. Head: Normocephalic. No obvious external signs of trauma. Eyes: Sclerae white. Ears: Hearing grossly intact. Neck: Supple, trachea is midline.. Cardiovascular / Chest: Tachycardic rate and regular rhythm. No murmur, rubs, clicks, or gallops. Peripheral pulses: radial pulses full. Respiratory: Rapid shallow breathing. Pausing for breath after brief 3-4 word responses. Retractions present. Equal chest rise and fall. Diffuse wheezing bilaterally. Neuro: Alert and oriented. Moving all four extremities spontaneously. Skin: Warm, dry, and intact. Psych: Affect: appropriate. Mood: normal. Moderate Sedation - Procedure Monitoring Vital Signs: Procedure Monitoring Vital Signs Temperature 98.2 F 05/08/18 10:57 Pulse Rate 122 H 05/08/18 10:57 Respiratory Rate 26 H 05/08/18 10:57 Blood Pressure 101/54 L 05/08/18 10:57 O2 Sat by Pulse Oximetry (%) 87 L 05/08/18 10:57 ED Treatment Course - LABORATORY CBC & Chemistry Diagram: 05/08/18 12:17 05/08/18 12:17 - ADDITIONAL ORDERS Additional order review: 05/08/18 05/08/18 05/08/18 12:17 12:17 12:17 PT with INR INR PTT (Actin FS) VBG pH 7.36 POC VBG pCO2 45.5 POC VBG pO2 31.7 VBG HCO3 25.4 VBG O2 Sat (Renuka) 52.8 L VBG Base Excess 0 Sodium 133 L Potassium 3.9 Chloride 99 Carbon Dioxide 26 Anion Gap 8 BUN 8 Creatinine 0.7 Creat Clearance w eGFR 84.51 Random Glucose 112 H Lactic Acid 1.5 Calcium 9.2 Total Bilirubin 0.4 AST 14 L ALT 13 Alkaline Phosphatase 86 Troponin I < 0.02 Total Protein 8.9 H Albumin 4.3 05/08/18 12:17 PT with INR 14.50 H INR 1.23 H PTT (Actin FS) 26.4 VBG pH POC VBG pCO2 POC VBG pO2 VBG HCO3 VBG O2 Sat (Renuka) VBG Base Excess Sodium Potassium Chloride Carbon Dioxide Anion Gap BUN Creatinine Creat Clearance w eGFR Random Glucose Lactic Acid Calcium Total Bilirubin AST ALT Alkaline Phosphatase Troponin I Total Protein Albumin 05/08/18 12:17 RBC 5.59 H MCV 87.6 MCHC 34.1 RDW 14.7 MPV 8.1 Neutrophils % 72.2 D Lymphocytes % 16.7 D Monocytes % 10.5 H Eosinophils % 0.1 D Basophils % 0.5 - Medications Given in the ED: ED Medications Discontinued Medications Generic Name Dose Route Start Last Admin Trade Name Freq PRN Reason Stop Dose Admin Acetaminophen 1,000 mg 05/08/18 12:21 05/08/18 12:36 Ofirmev Injection - IVPB 05/08/18 12:22 1,000 mg ONCE ONE Administration Albuterol/Ipratropium 3 amp 05/08/18 11:57 05/08/18 12:10 Duoneb - NEB 05/08/18 11:58 3 amp ONCE ONE Administration Azithromycin 500 mg/ Dextrose 250 mls @ 250 mls/hr 05/08/18 12:41 05/08/18 13 :45 IVPB 05/08/18 13:40 250 mls/hr ONCE ONE Administration Ceftriaxone Sodium 2 mg/ 50 mls @ 100 mls/hr 05/08/18 12:41 05/08/18 13:45 Dextrose IVPB 05/08/18 13:10 100 mls/hr ONCE ONE Administration Lactated Ringer's 1,000 ml 05/08/18 12:00 05/08/18 12:10 Lactated Ringers Solution IV 05/08/18 12:01 1,000 ml ONCE ONE Administration Magnesium Sulfate 2 gm 05/08/18 11:58 05/08/18 12:10 Magnesium Sulfate IVPB 05/08/18 11:59 2 gm ONCE ONE Administration Methylprednisolone Sodium Succinate 125 mg 05/08/18 11:57 05/08/18 12:10 Solu-Medrol - IVPUSH 05/08/18 11:58 125 mg ONCE ONE Administration Medical Decision Making - Medical Decision Making *Reviewed vital signs, nursing notes, and prior visit documentation (if available). 63 y/o female complaining of shortness of breath and chest pain. Tachycardic and borderline hypotensive. Hypoxic on room air. Requiring supplemental oxygen therapy. Afebrile rectally. Initiated ED sepsis protocol. Ordered DuoNebs, Solumedrol, and IV Magnesium for symptom relief. Portable CXR suggestive for left upper lobe pneumonia with vargas along lower edge of lobe. Will start ceftriaxone and azithromycin for community acquired pneumonia. Pt reassessed. Continues to require supplemental oxygen therapy. Will admit pt to the hospital for CAP requiring oxygen therapy. 13:[address] Prather. Verbally appraised of the pts HPI, ED course, and current plan of management. Requests pulmonary consult with Dr. Barbosa. Agrees to admit pt to med/surg on inpatient status. Page sent for Dr. Barbosa overhead. Awaiting call back. Consult requested placed in [facility]. *DC/Admit/Observation/Transfer Diagnosis at time of Disposition: On supplemental oxygen therapy Pneumonia Qualifiers: Pneumonia type: due to unspecified organism Laterality: left Lung location: upper lobe of lung Qualified Code(s): J18.1 - Lobar pneumonia, unspecified organism - Discharge Dispostion Condition at time of disposition: Fair Decision to Admit order: Yes - Referrals - Patient Instructions - Post Discharge Activity
[2018-05-08] MEDS ORDERED: methylPREDNISolone NA SUCC 125 MG/2 ML VIAL IVPUSH ONE (11:57)
[2018-05-08] MEDS ORDERED: MAGNESIUM SULF 50% (8.12 MEQ/2 ML-1 GM VIAL) IVPB ONE (11:58)
[2018-05-08] MEDS ORDERED: LACTATED RINGERS SOLUTION 1000 ML INFUS.BAG IV ONE (12:00)
[2018-05-08] MEDS ORDERED: LIDOCAINE 5% TOPICAL PATCH ONE (12:07)
[2018-05-08] MEDS ORDERED: methylPREDNISolone NA SUCC 125 MG/2 ML VIAL ONE (12:08)
[2018-05-08] MEDS ORDERED: MAGNESIUM 1GM/D5W - 2 GM/200 ML IVPB IVPB ONE (12:08)
[2018-05-08] MEDS ORDERED: ACETAMINOPHEN 1000 MG/100 ML VIAL (NON FORMULARY) IVPB ONE (12:21)
[2018-05-08] MEDS ORDERED: ACETAMINOPHEN INJECTION 100 ML IVPB ONE (12:23)
[2018-05-08 12:38] LABS: BASO % 0.5 % (0-2.0); EOS % 0.1 % (0-4.5); HEMOGLOBIN 16.7 GM/dL (10.7-15.3); LYMPH % 16.7 % (8-40); MCH 29.9 pg (25.7-33.7); MCHC 34.1 g/dl (32.0-36.0); MEAN CELL VOLUME 87.6 fl (80-96); MEAN PLT VOLUME 8.1 fl (7.5-11.1); MONO % 10.5 % (3.8-10.2); NEUT % 72.2 % (42.8-82.8); PLATELET COUNT 216 K/MM3 (134-434); RBC 5.59 M/mm3 (3.60-5.2); RDW 14.7 % (11.6-15.6)
[2018-05-08] MEDS ORDERED: AZITHROMYCIN IVPB 500 MG in DEXTROSE 5%-WATER - 250 ML IVPB ONE (12:41)
[2018-05-08] MEDS ORDERED: CEFTRIAXONE 2 MG in DEXTROSE 5%-WATER - 50 ML IVPB ONE (12:41)
--- NOTE | 2018-05-08 12:42 | PDOC ---
Attending Attestation - Resident Resident Name: Javad Craig - ED Attending Attestation I have performed the following: I have examined & evaluated the patient, The case was reviewed & discussed with the resident, I agree w/resident's findings & plan, Exceptions are as noted - HPI HPI: 05/08/18 12:40 The patient is a 63 year old female, with a significant PMH of asthma, who presents to the emergency department today for SOB and chest pain. The patient complains of a non productive cough, nausea, and nonradiating midline chest pain. The patient denies headache and dizziness. Denies fever, chills, vomit, diarrhea and constipation. Denies dysuria, frequency, urgency and hematuria. Allergies: Penicillin Social history: None reported PCP: Dr. Prather - Physicial Exam PE: 05/08/18 12:40 GENERAL: Awake, alert, + moderate respiratory distress. HEAD: No signs of trauma EYES: PERRLA, EOMI, sclera anicteric, conjunctiva clear ENT: Auricles normal inspection, hearing grossly normal, nares patent, oropharynx clear without exudates. Moist mucosa NECK: Nontender, no stepoffs, Normal ROM, supple, no lymphadenopathy, JVD, or masses LUNGS: + bilateral wheezes and rhonchi HEART: Regular rate and rhythm, normal S1 and S2, no murmurs, rubs or gallops ABDOMEN: Soft, nontender, normoactive bowel sounds. No guarding, no rebound. No masses EXTREMITIES: Normal range of motion, no edema. No clubbing or cyanosis. No cords, erythema, or tenderness NEUROLOGICAL: Cranial nerves II through XII intact. 5/5 strength and sensation in all extremities, Normal speech, normal gait, normal cerebellar function SKIN: Warm, Dry, normal turgor, no rashes or lesions noted. - Critical Care Time Total Critical Care Time: 60 Critical Care Statement: The care of this patient involved high complexity decision making to prevent further life threatening deterioration of the patient 's condition and/or to evaluate & treat vital organ system(s) failure or risk of failure. - Medical Decision Making 05/08/18 12:41 63 F with SOB and chest pain. Found to be febrile, wheezing, and rhonchorous. Suspect acute asthma flare, likely 2/2 infectious process. Suspect PNA. Will also r/o influenza. - Labs, cultures - CXR - Flu swab - Duonebs, steroids - Tylenol
[2018-05-08 12:46] LABS: VENOUS PC02 45.5 mmHg (41-51); VENOUS PH 7.36 (7.31-7.41); VENOUS PO2 31.7 mmHg (30-40)
[2018-05-08 12:57] LABS: INR 1.23 (0.83-1.09); PROTHROMBIN TIME (PATIENT) 14.5 SEC (9.7-13.0)
[2018-05-08 13:00] LABS: ACTIVATED PTT 26.4 SECONDS (25.2-36.5)
[2018-05-08] MEDS ORDERED: AZITHROMYCIN IVPB 500 MG/250 ML BAG IVPB ONE (13:30)
[2018-05-08] MEDS ORDERED: CEFTRIAXONE 2 GM/100 ML BAG IVPB ONE (13:30)
[2018-05-08 13:37] LABS: ALBUMIN 4.3 g/dl (3.4-5.0); ALK PHOS 86 U/L (45-117); ANION GAP 8 MMOL/L (8-16); BILIRUBIN,TOTAL 0.4 mg/dL (0.2-1); BLOOD UREA NITROGEN 8 mg/dL (7-18); CALCIUM 9.2 mg/dL (8.5-10.1); CHLORIDE 99 mmol/L (98-107); CO2 26 mmol/L (21-32); CREATININE 0.7 mg/dL (0.55-1.3); GLUCOSE,RANDOM 112 mg/dL (74-106); POTASSIUM 3.9 mmol/L (3.5-5.1); SGOT/AST 14 U/L (15-37); SGPT/ALT 13 U/L (13-61); SODIUM 133 mmol/L (136-145); TOT PROT 8.9 g/dl (6.4-8.2)
[2018-05-08] MEDS: NICOTINE 7 MG/24 HOURS TOPICAL PATCH TD SCH (14:36)
[2018-05-08 14:51] LABS: URINE APPEARANCE CLEAR; URINE BILIRUBIN NEGATIVE (<2.0 mg/dL); URINE COLOR LTYELLOW; URINE GLUCOSE (UA) NEGATIVE (NEGATIVE); URINE KETONE TRACE (NEGATIVE); URINE LEUK ESTERASE NEGATIVE (NEGATIVE); URINE NITRITE NEGATIVE (NEGATIVE); URINE PROTEIN 3+ (NEGATIVE); URINE UROBILINOGEN NEGATIVE mg/dL (0.2-1.0)
[2018-05-08 14:58] LABS: EPI CELLS RARE /HPF (FEW); URINE MUCUS RARE
[2018-05-08 15:35] VITALS: BMI 28.0
[2018-05-08] MEDS ORDERED: PNEUMOC 13-VAL CONJ-DIP CRM/PF 0.5 ML DISP.SYRIN IM ONE (15:35)
[2018-05-08] MEDS ORDERED: CEFTRIAXONE 2 GM in DEXTROSE 5%-WATER 100 ML IVPB SCH (16:30)
[2018-05-08] MEDS ORDERED: methylPREDNISolone NA SUCC 125 MG/2 ML VIAL IVPUSH SCH (16:30)
[2018-05-08] MEDS ORDERED: FLU VACCINE QUAD 60 MCG/0.5 ML (MDV 18-19) IM ONE (16:45)
[2018-05-08] MEDS ORDERED: PNEUMOCOCCAL 23 VACCINE 0.5 ML VIAL IM ONE (17:00)
[2018-05-08] MEDS: methylPREDNISolone NA SUCC 125 MG/2 ML VIAL IVPUSH SCH (17:15)
[2018-05-08] MEDS: ALBUTEROL SO4 2.5/IPRATROPIUM 0.5 INH SOL 3 ML VIAL.NEB. NEB PRN ×2 (18:13→23:00)
[2018-05-08] MEDS ORDERED: FUROSEMIDE 40 MG/4 ML INJECTABLE VIAL ONE (18:31)
[2018-05-08] MEDS: FUROSEMIDE 40 MG/4 ML INJECTABLE VIAL IVPUSH SCH (18:36)
--- NOTE | 2018-05-08 19:20 | HP ---
DATE OF ADMISSION: 05/08/2018 DATE OF DICTATION: 05/08/2018 HISTORY: This is a 63-year-old female known to have bronchial asthma, CSF, hypertension who came to the emergency room this morning with complaints of short of breath and had also mild fever. In the emergency room, the patient was diagnosed to have bronchial asthma, possible CHF but admitted to the regular floor. She is still complaining of short of breath. She was started on IV antibiotics. PHYSICAL EXAMINATION: Vital Signs: BP 150/80, pulse 116. She had fever of 101 now down to 98. HEENT: Unremarkable. Neck: Supple. Lungs: Bilateral wheeze present. Rales present. Heart: S1, S2 normal. No S3, S4. Abdomen: Soft. Extremities: Legs, no edema. Neurologic: Grossly normal. LABORATORY REPORT: WBC 6, hemoglobin 16, hematocrit 49, platelets 216. Chemistry: Sodium 133, potassium 3.9. Blood sugar 112, creatinine 0.7. INR 1.2. Chest x-ray: Pulmonary congestion present. DIAGNOSIS: 1. Congestive heart failure. 2. Chronic obstructive pulmonary disease. 3. Hypertension. 4. Arteriosclerotic heart disease. PLAN: IV antibiotics. IV steroids. IV Lasix. We will continue her present medication. We will follow. Pulmonary consult, Dr. Barbosa. MEHDI BRYANT M.D. [id number]
[2018-05-08] MEDS: levETIRAcetam 500 MG TABLET (FP) PO SCH (21:06)
--- NOTE | 2018-05-08 22:46 | EKG ---
Test Reason : Blood Pressure : / mmHG Vent. Rate : 116 BPM Atrial Rate : 116 BPM P-R Int : 000 ms QRS Dur : 072 ms QT Int : 448 ms P-R-T Axes : 082 037 075 degrees QTc Int : 622 ms SINUS TACHYCARDIA PROLONGED QT ABNORMAL ECG WHEN COMPARED WITH ECG OF 04-APR-2018 10:59, VENT. RATE HAS INCREASED BY 40 BPM T WAVE VARIATION Confirmed by DIOGENES RO MD ([id number]) on 05/08/2018 10:46:09 PM Referred By: Confirmed By:DIOGENES RO MD
[2018-05-08] MEDS: ACETAMINOPHEN 500 MG TABLET (FP) PO PRN (22:51)
[2018-05-09] MEDS: methylPREDNISolone NA SUCC 125 MG/2 ML VIAL IVPUSH SCH ×3 (01:08→17:10)
[2018-05-09] MEDS: ALBUTEROL SO4 2.5/IPRATROPIUM 0.5 INH SOL 3 ML VIAL.NEB. NEB PRN (07:15)
--- NOTE | 2018-05-09 08:39 | PN ---
Progress Note, Physician Chief Complaint: Feels tired History of Present Illness: Admitted with CHF and Acute bronchitis - Current Medication List Current Medications: Active Medications Acetaminophen (Tylenol -) 1,000 mg PO Q8H PRN PRN Reason: PAIN LEVEL 4 - 6 Last Admin: 05/08/18 22:51 Dose: 1,000 mg Albuterol/Ipratropium (Duoneb -) 1 amp NEB Q6H PRN PRN Reason: SHORTNESS OF BREATH Last Admin: 05/09/18 07:15 Dose: 1 amp Azithromycin (Zithromax 500mg Ivpb (Pre-Docked)) 500 mg IVPB DAILY [facility] Diltiazem HCl (Cardizem Cd -) 120 mg PO DAILY [facility] Last Admin: 05/08/18 16:45 Dose: Not Given Furosemide (Lasix Injection -) 40 mg IVPUSH DAILY [facility] Last Admin: 05/08/18 18:36 Dose: 40 mg Ceftriaxone Sodium 2 gm/ (Dextrose) 100 mls @ 200 mls/hr IVPB DAILY [facility] Levetiracetam (Keppra -) 500 mg PO BID [facility] Last Admin: 05/08/18 21:06 Dose: 500 mg Losartan Potassium (Cozaar -) 50 mg PO DAILY [facility] Methylprednisolone Sodium Succinate (Solu-Medrol -) 100 mg IVPUSH Q8H-IV [facility] Last Admin: 05/09/18 01:08 Dose: 100 mg Nicotine (Nicoderm Patch -) 7 mg TD DAILY [facility] Last Admin: 05/08/18 14:36 Dose: 7 mg - Objective Vital Signs: Vital Signs Temperature 98 F 05/09/18 06:00 Pulse Rate 95 H 05/09/18 06:00 Respiratory Rate 20 05/09/18 06:00 Blood Pressure 119/76 05/09/18 06:00 O2 Sat by Pulse Oximetry (%) 93 L 05/08/18 21:00 Constitutional: Yes: Mild Distress Eyes: Yes: WNL HENT: Yes: WNL Neck: Yes: WNL Cardiovascular: Yes: Tachycardia Respiratory: Yes: Rales, Rhonchi, SOB Gastrointestinal: Yes: Normal Bowel Sounds ...Rectal Exam: Yes: Deferred Genitourinary: Yes: WNL Musculoskeletal: Yes: Muscle Weakness Edema: No Neurological: Yes: Alert Labs: CBC, BMP 05/08/18 12:17 05/08/18 12:17 INR, PTT INR 1.23 (0.83-1.09) H 05/08/18 12:17 Assessment/Plan Cntinue same trt
[2018-05-09] MEDS ORDERED: PT OWN MED DRAWER 7, Y5N ONE (09:29)
[2018-05-09] MEDS ORDERED: DEXTROSE 5%-WATER 100 ML IVPB ONE (09:30)
--- NOTE | 2018-05-09 09:42 | CON.PULM ---
Consult Consult Specialty:: PULM/CCM Referred by:: ENRIQUETA Reason for Consultation:: SOB - History of Present Illness Chief Complaint: SOB History of Present Illness: 63 F, long standing and active smoker, likely COPD, reported asthma, and HPL. CTA last year: no PE but non-specific enlargement of the mediastinal LN ( patient had no follow up). Reports shortness of breath, cough, and chest congestion of 2 days duration. Her daughter apparently has the Flu and she spent time with her on Tuesday. No travel history. No hemoptysis. Not steroid dependent, never intubated, no VTE history, unknown PEF. - History Source History Provided By: Patient Limitations to Obtaining History: No Limitations - Past Medical History Cardio/Vascular: Yes: HTN Pulmonary: Yes: Asthma, Bronchitis, COPD, Pneumonia. No: O2 Dependent, Previously Intubated, Pulmonary Embolus, Pulmonary Fibrosis, Sleep Apnea ...: No - Alcohol/Substance Use Hx Alcohol Use: No - Smoking History Smoking history: Never smoked Have you smoked in the past 12 months: No Aproximately how many cigarettes per day: 10 - Social History Usual Living Arrangement: With Child ADL: Independent History of Recent Travel: No Home Medications - Allergies Allergies/Adverse Reactions: Allergies Allergy/AdvReac Type Severity Reaction Status Date / Time No Known Allergies Allergy Verified 05/08/18 12:41 - Home Medications Home Medications: Ambulatory Orders Albuterol Sulfate Inhaler - [Ventolin HFA Inhaler -] 1 - 2 inh PO QID PRN #1 inhaler 10/31/17 Montelukast Sodium [Singulair] 10 mg PO DAILY #30 tablet 10/31/17 Diltiazem HCl [Diltiazem 24Hr ER] 120 mg PO DAILY 02/22/18 Rosuvastatin [Crestor -] 10 mg PO DAILY 02/22/18 levETIRAcetam [Keppra -] 500 mg PO BID 30 Days #60 tablet 02/23/18 Aspirin [ASA -] 81 mg PO DAILY #30 tab.chew 02/24/18 Losartan Potassium 50 mg PO DAILY 30 Days #30 tablet 02/24/18 Review of Systems - Review of Systems Constitutional: reports: Chills, Fever, Malaise. denies: Night Sweats, Unintentional Wgt. Loss Eyes: reports: No Symptoms HENT: reports: No Symptoms Neck: reports: No Symptoms Cardiovascular: reports: Chest Pain, Shortness of Breath. denies: Edema, Palpitations Respiratory: reports: Cough, SOB, SOB on Exertion, Wheezing. denies: Hemoptysis , Orthopnea, Snoring Gastrointestinal: reports: No Symptoms Genitourinary: reports: No Symptoms Breasts: reports: No Symptoms Reported Musculoskeletal: reports: No Symptoms Integumentary: reports: No Symptoms Neurological: reports: No Symptoms Endocrine: reports: No Symptoms Hematology/Lymphatic: reports: No Symptoms Psychiatric: reports: No Symptoms Physical Exam Vital Sings: Vital Signs Temperature 98 F 05/09/18 06:00 Pulse Rate 95 H 05/09/18 06:00 Respiratory Rate 20 05/09/18 06:00 Blood Pressure 119/76 05/09/18 06:00 O2 Sat by Pulse Oximetry (%) 93 L 05/08/18 21:00 Constitutional: Yes: Mild Distress Eyes: Yes: Conjunctiva Clear, EOM Intact HENT: Yes: Atraumatic, Normocephalic Neck: Yes: Supple, Trachea Midline Cardiovascular: Yes: Regular Rate and Rhythm Respiratory: Yes: Cough, Diminished, On Nasal O2, Rhonchi, SOB, SOB on Exertion , Tachypnea, Wheezes. No: Accessory Muscle Use, Rales, Stridor ...Inspection: Yes: WNL ...Clubbing: No Gastrointestinal: Yes: Normal Bowel Sounds, Soft Renal/: Yes: WNL Musculoskeletal: Yes: WNL Extremities: Yes: WNL Edema: No Peripheral Pulses WNL: Yes Integumentary: Yes: WNL Neurological: Yes: WNL, Alert, Oriented ...Motor Strength: WNL Psychiatric: Yes: WNL, Alert, Oriented Labs: CBC, BMP 05/08/18 12:17 05/08/18 12:17 Imaging - Results Chest X-ray: Report Reviewed, Image Reviewed Problem List - Problems (1) Acute exacerbation of chronic obstructive airways disease Code(s): J44.1 - CHRONIC OBSTRUCTIVE PULMONARY DISEASE W (ACUTE) EXACERBATION (2) Smoker Code(s): F17.200 - NICOTINE DEPENDENCE, UNSPECIFIED, UNCOMPLICATED (3) Shortness of breath Code(s): R06.02 - SHORTNESS OF BREATH (4) Pneumonia Code(s): J18.9 - PNEUMONIA, UNSPECIFIED ORGANISM Qualifiers: Pneumonia type: due to unspecified organism Laterality: left Lung location: upper lobe of lung Qualified Code(s): J18.1 - Lobar pneumonia, unspecified organism (5) HTN (hypertension) Code(s): I10 - ESSENTIAL (PRIMARY) HYPERTENSION Qualifiers: Assessment/Plan Agree with Rocephin/Zithromax O2 as needed CT chest with contrast BD TX standing and PRN Medrol No smoking counseled Will need PFTs once stable after discharge On discharge will need at least LAMA/LABA Check sputum Check urine antigen Will follow Thank you. Dr Tripathi
[2018-05-09] MEDS: FUROSEMIDE 40 MG/4 ML INJECTABLE VIAL IVPUSH SCH (09:48)
[2018-05-09] MEDS: NICOTINE 7 MG/24 HOURS TOPICAL PATCH TD SCH (09:50)
[2018-05-09] MEDS: LOSARTAN POTASSIUM 50 MG TABLET (FP) PO SCH (09:50)
[2018-05-09] MEDS: ASPIRIN COATED 81 MG TABLET.EC PO SCH (09:50)
[2018-05-09] MEDS: levETIRAcetam 500 MG TABLET (FP) PO SCH ×2 (09:50→21:59)
[2018-05-09] MEDS: AZITHROMYCIN IVPB 500 MG/250 ML D5W PRE-DOCKED IVPB SCH (09:51)
[2018-05-09] MEDS: CEFTRIAXONE 2 GM in DEXTROSE 5%-WATER 100 ML IVPB SCH (09:51)
[2018-05-09] MEDS ORDERED: FUROSEMIDE 40 MG/4 ML INJECTABLE VIAL IVPUSH SCH (10:00)
[2018-05-09] MEDS: ALBUTEROL SO4 2.5/IPRATROPIUM 0.5 INH SOL 3 ML VIAL.NEB. NEB SCH ×3 (12:52→20:29)
[2018-05-10] MEDS: methylPREDNISolone NA SUCC 125 MG/2 ML VIAL IVPUSH SCH ×2 (01:06→10:48)
[2018-05-10] MEDS: ALBUTEROL SO4 0.083% IH SOL 2.5 MG/3 ML VIAL.NEB. NEB PRN ×2 (02:10→23:50)
[2018-05-10] MEDS: ALBUTEROL SO4 2.5/IPRATROPIUM 0.5 INH SOL 3 ML VIAL.NEB. NEB SCH ×4 (07:50→19:16)
[2018-05-10] MEDS ORDERED: DEXTROSE 5%-WATER 100 ML IVPB ONE (08:53)
--- NOTE | 2018-05-10 09:32 | PN ---
Progress Note, Physician Chief Complaint: Feels better History of Present Illness: Doctor Juan's pulmonary consult appreciated - Current Medication List Current Medications: Active Medications Acetaminophen (Tylenol -) 1,000 mg PO Q8H PRN PRN Reason: PAIN LEVEL 4 - 6 Last Admin: 05/08/18 22:51 Dose: 1,000 mg Albuterol Sulfate (Ventolin 0.083% Nebulizer Soln -) 1 amp NEB Q4H PRN PRN Reason: SHORT OF BREATH/WHEEZING Last Admin: 05/10/18 02:10 Dose: 1 amp Albuterol/Ipratropium (Duoneb -) 1 amp NEB RQID [facility] Last Admin: 05/09/18 20:29 Dose: 1 amp Aspirin (Ecotrin -) 81 mg PO DAILY [facility] Last Admin: 05/09/18 09:50 Dose: 81 mg Azithromycin (Zithromax 500mg Ivpb (Pre-Docked)) 500 mg IVPB DAILY [facility] Last Admin: 05/09/18 09:51 Dose: 500 mg Diltiazem HCl (Cardizem Cd -) 120 mg PO DAILY [facility] Last Admin: 05/09/18 09:50 Dose: 120 mg Furosemide (Lasix Injection -) 40 mg IVPUSH DAILY [facility] Last Admin: 05/09/18 09:48 Dose: 40 mg Ceftriaxone Sodium 2 gm/ (Dextrose) 100 mls @ 200 mls/hr IVPB DAILY [facility] Last Admin: 05/09/18 09:51 Dose: 200 mls/hr Levetiracetam (Keppra -) 500 mg PO BID [facility] Last Admin: 05/09/18 21:59 Dose: 500 mg Losartan Potassium (Cozaar -) 50 mg PO DAILY [facility] Last Admin: 05/09/18 09:50 Dose: 50 mg Methylprednisolone Sodium Succinate (Solu-Medrol -) 100 mg IVPUSH Q8H-IV [facility] Last Admin: 05/10/18 01:06 Dose: 100 mg Nicotine (Nicoderm Patch -) 7 mg TD DAILY [facility] Last Admin: 05/09/18 09:50 Dose: 7 mg - Objective Vital Signs: Vital Signs Temperature 98.1 F 05/10/18 05:37 Pulse Rate 110 H 05/10/18 05:37 Respiratory Rate 20 05/10/18 05:37 Blood Pressure 118/71 03/20/19 05:37 O2 Sat by Pulse Oximetry (%) 97 05/09/18 21:00 Constitutional: Yes: Mild Distress Eyes: Yes: WNL HENT: Yes: WNL Neck: Yes: WNL Cardiovascular: Yes: WNL Respiratory: Yes: Poor Air Entry ...Rectal Exam: Yes: Deferred Musculoskeletal: Yes: WNL Edema: No Peripheral Pulses WNL: Yes Neurological: Yes: Alert Labs: CBC, BMP 05/08/18 12:17 05/08/18 12:17 INR, PTT INR 1.23 (0.83-1.09) H 05/08/18 12:17 Assessment/Plan Repeat CXR and continue same medications D/c O2 by nasal cannula
[2018-05-10] MEDS: ACETAMINOPHEN 500 MG TABLET (FP) PO PRN ×2 (09:47→17:17)
[2018-05-10] MEDS: ASPIRIN COATED 81 MG TABLET.EC PO SCH (09:48)
[2018-05-10] MEDS: LOSARTAN POTASSIUM 50 MG TABLET (FP) PO SCH (09:48)
[2018-05-10] MEDS: levETIRAcetam 500 MG TABLET (FP) PO SCH ×2 (09:49→21:51)
[2018-05-10] MEDS: NICOTINE 7 MG/24 HOURS TOPICAL PATCH TD SCH ×2 (09:49→10:45)
[2018-05-10] MEDS: FUROSEMIDE 40 MG/4 ML INJECTABLE VIAL IVPUSH SCH (10:43)
[2018-05-10] MEDS: CEFTRIAXONE 2 GM in DEXTROSE 5%-WATER 100 ML IVPB SCH (10:45)
[2018-05-10] MEDS: AZITHROMYCIN IVPB 500 MG/250 ML D5W PRE-DOCKED IVPB SCH (11:44)
--- NOTE | 2018-05-10 14:55 | PN ---
Progress Note, Physician History of Present Illness: PULMONARY ALERT,FEELING BETTER,LESS DYSPNEIC - Current Medication List Current Medications: Active Medications Acetaminophen (Tylenol -) 1,000 mg PO Q8H PRN PRN Reason: PAIN LEVEL 4 - 6 Last Admin: 05/10/18 09:47 Dose: 1,000 mg Albuterol Sulfate (Ventolin 0.083% Nebulizer Soln -) 1 amp NEB Q4H PRN PRN Reason: SHORT OF BREATH/WHEEZING Last Admin: 05/10/18 02:10 Dose: 1 amp Albuterol/Ipratropium (Duoneb -) 1 amp NEB RQID [facility] Last Admin: 05/10/18 11:07 Dose: 1 amp Aspirin (Ecotrin -) 81 mg PO DAILY [facility] Last Admin: 05/10/18 09:48 Dose: 81 mg Azithromycin (Zithromax 500mg Ivpb (Pre-Docked)) 500 mg IVPB DAILY [facility] Last Admin: 05/10/18 11:44 Dose: 500 mg Diltiazem HCl (Cardizem Cd -) 120 mg PO DAILY [facility] Last Admin: 05/10/18 09:48 Dose: 120 mg Furosemide (Lasix Injection -) 40 mg IVPUSH DAILY [facility] Last Admin: 05/10/18 10:43 Dose: 40 mg Ceftriaxone Sodium 2 gm/ (Dextrose) 100 mls @ 200 mls/hr IVPB DAILY [facility] Last Admin: 05/10/18 10:45 Dose: 200 mls/hr Levetiracetam (Keppra -) 500 mg PO BID [facility] Last Admin: 05/10/18 09:49 Dose: 500 mg Losartan Potassium (Cozaar -) 50 mg PO DAILY [facility] Last Admin: 05/10/18 09:48 Dose: 50 mg Methylprednisolone Sodium Succinate (Solu-Medrol -) 100 mg IVPUSH Q8H-IV [facility] Last Admin: 05/10/18 10:48 Dose: 100 mg Nicotine (Nicoderm Patch -) 7 mg TD DAILY [facility] Last Admin: 05/10/18 10:45 Dose: Not Given - Objective Vital Signs: Vital Signs Temperature 98.0 F 05/10/18 14:41 Pulse Rate 98 H 05/10/18 14:41 Respiratory Rate 20 05/10/18 14:41 Blood Pressure 130/66 05/10/18 14:41 O2 Sat by Pulse Oximetry (%) 98 03/20/19 10:14 Constitutional: Yes: Well Nourished, Calm Eyes: Yes: WNL HENT: Yes: WNL Neck: Yes: WNL Cardiovascular: Yes: Regular Rate and Rhythm, S1, S2 Respiratory: Yes: Wheezes (SCATTERED NOAH WHEEZES) Gastrointestinal: Yes: Normal Bowel Sounds, Soft Extremities: Yes: WNL Edema: No Labs: CBC, BMP 05/08/18 12:17 Assessment/Plan Imaging - Results Chest X-ray: Report Reviewed, Image Reviewed Problem List - Problems (1) Acute exacerbation of chronic obstructive airways disease Code(s): J44.1 - CHRONIC OBSTRUCTIVE PULMONARY DISEASE W (ACUTE) EXACERBATION (2) Smoker Code(s): F17.200 - NICOTINE DEPENDENCE, UNSPECIFIED, UNCOMPLICATED (3) Shortness of breath Code(s): R06.02 - SHORTNESS OF BREATH (4) Pneumonia Code(s): J18.9 - PNEUMONIA, UNSPECIFIED ORGANISM Qualifiers: Pneumonia type: due to unspecified organism Laterality: left Lung location: upper lobe of lung Qualified Code(s): J18.1 - Lobar pneumonia, unspecified organism (5) HTN (hypertension) Code(s): I10 - ESSENTIAL (PRIMARY) HYPERTENSION Qualifiers: Assessment/Plan Agree with Rocephin/Zithromax O2 as needed BD TX standing and PRN Medrol taper No smoking counseled Will need PFTs once stable after discharge On discharge will need at least LAMA/LABA DR ZAMBRANO
[2018-05-10] MEDS: methylPREDNISolone NA SUCC 40 MG/1 ML VIAL IVPUSH SCH (17:11)
[2018-05-11] MEDS: methylPREDNISolone NA SUCC 40 MG/1 ML VIAL IVPUSH SCH ×3 (01:10→21:43)
--- NOTE | 2018-05-11 08:38 | PN ---
Progress Note (short form) - Note Progress Note: Feels overall better. Less SOB and ESPINAL. Still with some congested cough. Intake & Output 05/08/18 05/09/18 05/10/18 05/11/18 23:59 23:59 23:59 23:59 Intake Total 250 700 0 Balance 250 700 0 Weight 179 lb 5 oz Last Vital Signs Temp Pulse Resp BP Pulse Ox 98.2 F 102 H 20 135/84 96 05/11/18 06:03 05/11/18 06:03 05/11/18 06:03 05/11/18 06:03 05/10/18 21:00 Active Medications Acetaminophen (Tylenol -) 1,000 mg PO Q8H PRN PRN Reason: PAIN LEVEL 4 - 6 Last Admin: 05/10/18 17:17 Dose: 1,000 mg Albuterol Sulfate (Ventolin 0.083% Nebulizer Soln -) 1 amp NEB Q4H PRN PRN Reason: SHORT OF BREATH/WHEEZING Last Admin: 05/10/18 23:50 Dose: 1 amp Albuterol/Ipratropium (Duoneb -) 1 amp NEB RQID [facility] Last Admin: 05/10/18 19:16 Dose: 1 amp Aspirin (Ecotrin -) 81 mg PO DAILY [facility] Last Admin: 05/10/18 09:48 Dose: 81 mg Azithromycin (Zithromax 500mg Ivpb (Pre-Docked)) 500 mg IVPB DAILY [facility] Last Admin: 05/10/18 11:44 Dose: 500 mg Diltiazem HCl (Cardizem Cd -) 120 mg PO DAILY [facility] Last Admin: 05/10/18 09:48 Dose: 120 mg Furosemide (Lasix Injection -) 40 mg IVPUSH DAILY [facility] Last Admin: 05/10/18 10:43 Dose: 40 mg Ceftriaxone Sodium 2 gm/ (Dextrose) 100 mls @ 200 mls/hr IVPB DAILY [facility] Last Admin: 05/10/18 10:45 Dose: 200 mls/hr Levetiracetam (Keppra -) 500 mg PO BID [facility] Last Admin: 05/10/18 21:51 Dose: 500 mg Losartan Potassium (Cozaar -) 50 mg PO DAILY [facility] Last Admin: 05/10/18 09:48 Dose: 50 mg Methylprednisolone Sodium Succinate (Solu-Medrol -) 60 mg IVPUSH Q8H-IV [facility] Last Admin: 05/11/18 01:10 Dose: 60 mg Nicotine (Nicoderm Patch -) 7 mg TD DAILY [facility] Last Admin: 05/10/18 10:45 Dose: Not Given Constitutional: Yes: Awake and alert, NAD Eyes: Yes: WNL HENT: Yes: WNL Neck: Yes: WNL Cardiovascular: Yes: Regular Rate and Rhythm, S1, S2 Respiratory: Yes: Improving bilateral Rhonchi and wheezes Gastrointestinal: Yes: Normal Bowel Sounds, Soft Extremities: Yes: WNL Edema: No Labs: Problem List - Problems (1) Acute exacerbation of chronic obstructive airways disease Code(s): J44.1 - CHRONIC OBSTRUCTIVE PULMONARY DISEASE W (ACUTE) EXACERBATION (2) Smoker Code(s): F17.200 - NICOTINE DEPENDENCE, UNSPECIFIED, UNCOMPLICATED (3) Shortness of breath Code(s): R06.02 - SHORTNESS OF BREATH (4) Pneumonia Code(s): J18.9 - PNEUMONIA, UNSPECIFIED ORGANISM Qualifiers: Pneumonia type: due to unspecified organism Laterality: left Lung location: upper lobe of lung Qualified Code(s): J18.1 - Lobar pneumonia, unspecified organism (5) HTN (hypertension) Code(s): I10 - ESSENTIAL (PRIMARY) HYPERTENSION Qualifiers: Assessment/Plan Agree with Rocephin/Zithromax O2 as needed BD TX standing and PRN Medrol taper: Can likely change to Prednisone in AM No smoking counseled Will need PFTs once stable after discharge On discharge will need at least LAMA/LABA Will need CT chest follow up in 6 weeks to document resolution of findings Check Pre and Post ambulation O2 saturation Likely will be able to be discharged tomorrow on oral therapy Dr Tripathi Problem List - Problems (1) Acute exacerbation of chronic obstructive airways disease Code(s): J44.1 - CHRONIC OBSTRUCTIVE PULMONARY DISEASE W (ACUTE) EXACERBATION (2) Smoker Code(s): F17.200 - NICOTINE DEPENDENCE, UNSPECIFIED, UNCOMPLICATED (3) Shortness of breath Code(s): R06.02 - SHORTNESS OF BREATH (4) Pneumonia Code(s): J18.9 - PNEUMONIA, UNSPECIFIED ORGANISM Qualifiers: Pneumonia type: due to unspecified organism Laterality: left Lung location: upper lobe of lung Qualified Code(s): J18.1 - Lobar pneumonia, unspecified organism (5) HTN (hypertension) Code(s): I10 - ESSENTIAL (PRIMARY) HYPERTENSION Qualifiers:
--- NOTE | 2018-05-11 09:23 | PN ---
Progress Note, Physician Chief Complaint: Feels better History of Present Illness: Dr. Martinez's follow up appreciated - Current Medication List Current Medications: Active Medications Acetaminophen (Tylenol -) 1,000 mg PO Q8H PRN PRN Reason: PAIN LEVEL 4 - 6 Last Admin: 05/10/18 17:17 Dose: 1,000 mg Albuterol Sulfate (Ventolin 0.083% Nebulizer Soln -) 1 amp NEB Q4H PRN PRN Reason: SHORT OF BREATH/WHEEZING Last Admin: 05/10/18 23:50 Dose: 1 amp Albuterol/Ipratropium (Duoneb -) 1 amp NEB RQID [facility] Last Admin: 05/10/18 19:16 Dose: 1 amp Aspirin (Ecotrin -) 81 mg PO DAILY [facility] Last Admin: 05/10/18 09:48 Dose: 81 mg Azithromycin (Zithromax 500mg Ivpb (Pre-Docked)) 500 mg IVPB DAILY [facility] Last Admin: 05/10/18 11:44 Dose: 500 mg Diltiazem HCl (Cardizem Cd -) 120 mg PO DAILY [facility] Last Admin: 05/10/18 09:48 Dose: 120 mg Furosemide (Lasix Injection -) 40 mg IVPUSH DAILY [facility] Last Admin: 05/10/18 10:43 Dose: 40 mg Ceftriaxone Sodium 2 gm/ (Dextrose) 100 mls @ 200 mls/hr IVPB DAILY [facility] Last Admin: 05/10/18 10:45 Dose: 200 mls/hr Levetiracetam (Keppra -) 500 mg PO BID [facility] Last Admin: 05/10/18 21:51 Dose: 500 mg Losartan Potassium (Cozaar -) 50 mg PO DAILY [facility] Last Admin: 05/10/18 09:48 Dose: 50 mg Methylprednisolone Sodium Succinate (Solu-Medrol -) 40 mg IVPUSH Q12H [facility] Nicotine (Nicoderm Patch -) 7 mg TD DAILY [facility] Last Admin: 05/10/18 10:45 Dose: Not Given - Objective Vital Signs: Vital Signs Temperature 98.2 F 05/11/18 06:03 Pulse Rate 102 H 05/11/18 06:03 Respiratory Rate 20 05/11/18 06:03 Blood Pressure 135/84 05/11/18 06:03 O2 Sat by Pulse Oximetry (%) 96 05/10/18 21:00 Constitutional: Yes: Calm Eyes: Yes: WNL HENT: Yes: WNL Neck: Yes: WNL Cardiovascular: Yes: WNL Respiratory: Yes: Rhonchi Gastrointestinal: Yes: WNL Labs: CBC, BMP 05/08/18 12:17 05/08/18 12:17 INR, PTT INR 1.23 (0.83-1.09) H 05/08/18 12:17 Assessment/Plan CXR reviewed and shows marked improvement Taper steroids
[2018-05-11] MEDS: ALBUTEROL SO4 2.5/IPRATROPIUM 0.5 INH SOL 3 ML VIAL.NEB. NEB SCH ×4 (09:31→20:26)
[2018-05-11] MEDS ORDERED: DEXTROSE 5%-WATER 100 ML IVPB ONE (11:15)
[2018-05-11] MEDS: CEFTRIAXONE 2 GM in DEXTROSE 5%-WATER 100 ML IVPB SCH (11:17)
[2018-05-11] MEDS: FUROSEMIDE 40 MG/4 ML INJECTABLE VIAL IVPUSH SCH (11:18)
[2018-05-11] MEDS: levETIRAcetam 500 MG TABLET (FP) PO SCH ×2 (11:18→21:43)
[2018-05-11] MEDS: LOSARTAN POTASSIUM 50 MG TABLET (FP) PO SCH (11:18)
[2018-05-11] MEDS: ASPIRIN COATED 81 MG TABLET.EC PO SCH (11:18)
[2018-05-11] MEDS: NICOTINE 7 MG/24 HOURS TOPICAL PATCH TD SCH (11:19)
[2018-05-11] MEDS: AZITHROMYCIN IVPB 500 MG/250 ML D5W PRE-DOCKED IVPB SCH (11:20)
[2018-05-12 06:12] VITALS: BP 118/70; PULSE 90; TEMP 98.5
[2018-05-12] MEDS: ALBUTEROL SO4 2.5/IPRATROPIUM 0.5 INH SOL 3 ML VIAL.NEB. NEB SCH ×2 (07:25→11:30)
[2018-05-12] MEDS ORDERED: DEXTROSE 5%-WATER 100 ML IVPB ONE (09:06)
[2018-05-12] MEDS: CEFTRIAXONE 2 GM in DEXTROSE 5%-WATER 100 ML IVPB SCH (09:11)
[2018-05-12] MEDS: NICOTINE 7 MG/24 HOURS TOPICAL PATCH TD SCH (09:11)
[2018-05-12] MEDS: ASPIRIN COATED 81 MG TABLET.EC PO SCH (09:11)
[2018-05-12] MEDS: LOSARTAN POTASSIUM 50 MG TABLET (FP) PO SCH (09:12)
[2018-05-12] MEDS: levETIRAcetam 500 MG TABLET (FP) PO SCH (09:12)
[2018-05-12] MEDS: AZITHROMYCIN IVPB 500 MG/250 ML D5W PRE-DOCKED IVPB SCH (09:12)
--- NOTE | 2018-05-12 09:15 | DS ---
Physical Examination Vital Signs: Vital Signs Temperature 98.5 F 05/12/18 06:00 Pulse Rate 90 05/12/18 06:00 Respiratory Rate 18 05/12/18 06:00 Blood Pressure 118/70 05/12/18 06:00 O2 Sat by Pulse Oximetry (%) 94 L 05/11/18 21:00 Findings/Remarks: Admitted with CHF and Ac bronchitis treated with IV antibiotics and IV lasix , improved Constitutional: Yes: No Distress Eyes: Yes: WNL HENT: Yes: WNL Neck: Yes: WNL Cardiovascular: Yes: WNL Respiratory: Yes: WNL Gastrointestinal: Yes: Normal Bowel Sounds ...Rectal Exam: Yes: Deferred Renal/: Yes: WNL Musculoskeletal: Yes: WNL Extremities: Yes: WNL Edema: No Peripheral Pulses WNL: Yes Neurological: Yes: Alert Psychiatric: Yes: Alert Labs: CBC, BMP 05/08/18 12:17 05/08/18 12:17 Discharge Summary Reason For Visit: ON SUPPLEMENTAL OXYGEN THERAPY,PNEUMONIA Current Active Problems Acute exacerbation of chronic obstructive airways disease (Acute) On supplemental oxygen therapy (Acute) Pneumonia (Acute) Shortness of breath (Acute) Smoker (Acute) Condition: Fair - Instructions - Home Medications Comprehensive Discharge Medication List: Ambulatory Orders Albuterol Sulfate Inhaler - [Ventolin HFA Inhaler -] 1 - 2 inh PO QID PRN #1 inhaler 10/31/17 Montelukast Sodium [Singulair] 10 mg PO DAILY #30 tablet 10/31/17 Diltiazem HCl [Diltiazem 24Hr ER] 120 mg PO DAILY 02/22/18 Rosuvastatin [Crestor -] 10 mg PO DAILY 02/22/18 levETIRAcetam [Keppra -] 500 mg PO BID 30 Days #60 tablet 02/23/18 Aspirin [ASA -] 81 mg PO DAILY #30 tab.chew 02/24/18 Losartan Potassium 50 mg PO DAILY 30 Days #30 tablet 02/24/18
[2018-05-12] MEDS: methylPREDNISolone NA SUCC 40 MG/1 ML VIAL IVPUSH SCH (09:34)
[2018-05-12] MEDS: FUROSEMIDE 40 MG/4 ML INJECTABLE VIAL IVPUSH SCH (09:34)
[2018-05-12] MEDS ORDERED: FUROSEMIDE 40 MG TABLET (FP) PO SCH (10:00)
[2018-05-12] MEDS ORDERED: predniSONE 20 MG TABLET (UD) PO SCH (10:00)
[2018-05-12] MEDS ORDERED: PROMETHAZINE HCL ORAL SYRUP 6.25 MG/5 ML (BULK BOTTLE) PO PRN (10:58)
== END 2018-05-12 12:34 | disposition home or self-care (01) | DRG 140 ==
LOC: JER 10:53 → JERBED 13:57 → J7W 14:51
PROVIDERS: ADMIT Internal Medicine; ATTEND Internal Medicine
DX: J44.1 Chronic obstructive pulmonary disease with (acute) exacerbation (principal); I10 Essential (primary) hypertension; I50.9 Heart failure, unspecified; I25.10 Atherosclerotic heart disease of native coronary artery without angina pectoris; J20.9 Acute bronchitis, unspecified; F17.210 Nicotine dependence, cigarettes, uncomplicated; J18.9 Pneumonia, unspecified organism; R06.02 Shortness of breath
CPT/HCPCS: 36415; 71045-TC-FY; 71046-TC-FY; 71260-TC; 80053; 81003; 81015; 82803; 83605; 84484; 85025; 85610; 85730; 87040; 87070; 87086; 87205; 87804; 87899; 90688; 90732; 93005; 93010; 94640; 94761; 99285-25; G0008; G0009; J0131

== ENCOUNTER 2021-02-16 14:13 | Observation (INO) | payer OTHER ==
[2021-02-16 14:41] VITALS: BMI 29.7
[2021-02-16 17:38] LABS: BASO % 1.1 % (0-2.0); EOS % 4.4 % (0-4.5); HEMATOCRIT 41.9 % (32.4-45.2); INR 1.08 (0.83-1.09); LYMPH % 55.8 % (8-40); MCH 29.9 pg (25.7-33.7); MCHC 33.5 g/dl (32.0-36.0); MEAN CELL VOLUME 89.3 fl (80-96); MEAN PLT VOLUME 7.8 fl (7.5-11.1); NEUT % 32.7 % (42.8-82.8); PLATELET COUNT 253 10^3/uL (134-434); PROTHROMBIN TIME (PATIENT) 12.1 SEC (9.7-13.0); RBC 4.69 M/mm3 (3.60-5.2); RDW 14.4 % (11.6-15.6); WHITE BLOOD COUNT 5.8 K/mm3 (4.0-10.0)
[2021-02-16 17:47] LABS: CHLORIDE 107 mmol/L (98-107); SODIUM 140 mmol/L (136-145)
[2021-02-16 17:49] LABS: CALCIUM 8.9 mg/dL (8.5-10.1)
[2021-02-16 17:50] LABS: ALBUMIN 3.4 g/dl (3.4-5.0); ANION GAP 8 MMOL/L (8-16); BLOOD UREA NITROGEN 12.4 mg/dL (7-18); CO2 25 mmol/L (21-32); GLUCOSE,RANDOM 88 mg/dL (74-106)
[2021-02-16 17:53] LABS: CREATININE 0.8 mg/dL (0.55-1.3); SGOT/AST 11 U/L (15-37); SGPT/ALT 13 U/L (13-61)
[2021-02-16 17:55] LABS: BILIRUBIN,TOTAL 0.3 mg/dL (0.2-1); TOT PROT 7.3 g/dl (6.4-8.2)
[2021-02-16 17:56] LABS: ALK PHOS 63 U/L (45-117)
[2021-02-16] MEDS ORDERED: ALBUTEROL SO4 HFA INHALER IH PRN (19:33)
[2021-02-16] MEDS ORDERED: POLYETHYLENE GLYCOL 3350 119 GM BTL PO PRN (20:09)
[2021-02-16] MEDS ORDERED: ACETAMINOPHEN 325 MG TABLET (FP) PO PRN (20:09)
[2021-02-16] MEDS ORDERED: POLYETHYLENE GLYCOL (HEALTHYLAX) 3350 17 GM PACKET PO PRN (21:08)
[2021-02-16] MEDS ORDERED: ATORVASTATIN CA 40 MG TABLET (FP) ONE (21:19)
[2021-02-16] MEDS ORDERED: ASPIRIN 81 MG CHEWABLE TABLETS ONE (21:19)
[2021-02-16] MEDS ORDERED: levETIRAcetam 500 MG TABLET (FP) PO ONE (21:19)
[2021-02-16] MEDS: ASPIRIN 325 MG TABLET PO SCH (21:22)
[2021-02-16] MEDS: ATORVASTATIN CA 40 MG TABLET (FP) PO SCH (21:22)
[2021-02-16] MEDS: levETIRAcetam 500 MG TABLET (FP) PO SCH (21:22)
[2021-02-17 07:26] LABS: BLOOD UREA NITROGEN 16.8 mg/dL (7-18); CALCIUM 8.7 mg/dL (8.5-10.1)
[2021-02-17 07:29] LABS: CREATININE 0.8 mg/dL (0.55-1.3)
[2021-02-17 09:04] LABS: HEMATOCRIT 41.8 % (32.4-45.2); HEMOGLOBIN 13.8 GM/dL (10.7-15.3); MCH 29.7 pg (25.7-33.7); MCHC 33.1 g/dl (32.0-36.0); MEAN CELL VOLUME 89.8 fl (80-96); MEAN PLT VOLUME 7.9 fl (7.5-11.1); PLATELET COUNT 249 10^3/uL (134-434); RBC 4.66 M/mm3 (3.60-5.2); RDW 14.1 % (11.6-15.6); WHITE BLOOD COUNT 7.6 K/mm3 (4.0-10.0)
[2021-02-17] MEDS ORDERED: ASPIRIN 81 MG CHEWABLE TABLETS PO SCH (10:00)
[2021-02-17] MEDS ORDERED: levETIRAcetam 500 MG TABLET (FP) PO ONE ×2 (11:49→22:11)
[2021-02-17] MEDS ORDERED: ASPIRIN 325 MG ENTERIC COATED TABLET (FP) ONE (11:49)
[2021-02-17] MEDS ORDERED: LOSARTAN POTASSIUM 50 MG TABLET ONE (11:49)
[2021-02-17] MEDS ORDERED: MONTELUKAST NA 10 MG TABLET ONE (11:50)
[2021-02-17] MEDS ORDERED: ENOXAPARIN NA (PORCINE) 40 MG/0.4 ML DISP.SYRIN SQ ONE (11:50)
[2021-02-17] MEDS: levETIRAcetam 500 MG TABLET (FP) PO SCH ×2 (11:51→22:19)
[2021-02-17] MEDS: ASPIRIN 325 MG TABLET PO SCH (11:51)
[2021-02-17] MEDS: MONTELUKAST NA 10 MG TABLET PO SCH (11:51)
[2021-02-17] MEDS: ENOXAPARIN NA (PORCINE) 40 MG/0.4 ML DISP.SYRIN SQ SCH (11:51)
[2021-02-17] MEDS: LOSARTAN POTASSIUM 50 MG TABLET PO SCH (11:51)
[2021-02-17] MEDS ORDERED: ATORVASTATIN CA 40 MG TABLET (FP) ONE (22:11)
[2021-02-17] MEDS: ATORVASTATIN CA 40 MG TABLET (FP) PO SCH (22:19)
[2021-02-18] MEDS ORDERED: levETIRAcetam 500 MG TABLET (FP) PO ONE (10:04)
[2021-02-18] MEDS ORDERED: LOSARTAN POTASSIUM 50 MG TABLET ONE (10:05)
[2021-02-18] MEDS ORDERED: ENOXAPARIN NA (PORCINE) 40 MG/0.4 ML DISP.SYRIN SQ ONE (10:05)
[2021-02-18] MEDS ORDERED: MONTELUKAST NA 10 MG TABLET ONE (10:05)
[2021-02-18] MEDS: ASPIRIN 325 MG TABLET PO SCH (10:11)
[2021-02-18] MEDS: ENOXAPARIN NA (PORCINE) 40 MG/0.4 ML DISP.SYRIN SQ SCH (10:11)
[2021-02-18] MEDS: levETIRAcetam 500 MG TABLET (FP) PO SCH (10:11)
[2021-02-18] MEDS: LOSARTAN POTASSIUM 50 MG TABLET PO SCH (10:11)
[2021-02-18] MEDS: MONTELUKAST NA 10 MG TABLET PO SCH (10:12)
[2021-02-18] MEDS ORDERED: FLU VACC QS2021-22(6MOS UP)/PF 60 MCG/0.5 ML SYRINGE IM ONE (11:56)
[2021-02-18 12:30] VITALS: BP 131/55; PULSE 90; TEMP 98.5
== END 2021-02-18 12:30 | disposition home or self-care (01) ==
LOC: JER 14:13 → UNDOADMOB 18:04 → INTOOBSV 18:04 → JERBED 18:04
PROVIDERS: ADMIT Hospitalist; ATTEND Internal Medicine
PROC: 3E0234Z Introduction of Serum, Toxoid and Vaccine into Muscle, Percutaneous Approach (ICD-10-PCS; principal; 2021-02-17)
DX: R47.01 Aphasia (principal); R51.9 Headache, unspecified; J40 Bronchitis, not specified as acute or chronic; R56.9 Unspecified convulsions; I10 Essential (primary) hypertension; E78.00 Pure hypercholesterolemia, unspecified; I49.40 Unspecified premature depolarization; J44.9 Chronic obstructive pulmonary disease, unspecified; J18.9 Pneumonia, unspecified organism; I21.4 Non-ST elevation (NSTEMI) myocardial infarction
CPT/HCPCS: 36415; 70450-TC; 70544-TC; 70551-TC; 71045-TC-FY; 80048; 80053; 80061; 82550; 83036; 84443; 84484; 85025; 85027; 85610; 85730; 90686; 93005; 93010; 93306-TC; 93880-TC; 96372; 97116-GP; 97161-GP; 99285-25; C9803; G0378; U0003; U0005

== ENCOUNTER 2021-04-10 04:28 | Day surgery (SDC) | payer OTHER ==
[2021-04-10 07:28] VITALS: BMI 29.1
[2021-04-10] MEDS ORDERED: LIDOCAINE HCL 1%, 10 MG/ML (20ML VIAL) ONE (09:23)
[2021-04-10] MEDS ORDERED: BUPIVACAINE HCL/PF 0.5% (5MG/ML) 10 ML VIAL ONE (09:23)
[2021-04-10] MEDS ORDERED: PROPOFOL 20 ML ONE (09:29)
[2021-04-10] MEDS ORDERED: MIDAZOLAM HCL 2 MG/2 ML SINGLE DOSE VIAL ONE (09:29)
[2021-04-10] MEDS ORDERED: ceFAZolin SODIUM 1 GM VIAL ONE (10:18)
[2021-04-10] MEDS ORDERED: BUPIVACAINE HCL/PF 0.5% (5MG/ML) 10 ML VIAL IJ ONE (10:28)
[2021-04-10] MEDS ORDERED: LIDOCAINE HCL 1%, 10 MG/ML (20ML VIAL) NR ONE ×2 (10:28)
[2021-04-10] MEDS ORDERED: GENTAMICIN SO4 80 MG/2 ML VIAL ONE (10:41)
[2021-04-10] MEDS ORDERED: GENTAMICIN SO4 80 MG/2 ML VIAL IVPB ONE (10:46)
[2021-04-10] MEDS ORDERED: DEXAMETHASONE SOD PHOSPHATE 4 MG/1 ML VIAL IVPUSH ONE ×2 (10:55)
[2021-04-10] MEDS ORDERED: DEXAMETHASONE SOD PHOSPHATE 4 MG/1 ML VIAL ONE (11:04)
[2021-04-10] MEDS ORDERED: BENZOIN/ALOE VERA/STORAX/TOLU 58 ML BOTTLE ONE (11:16)
[2021-04-10] MEDS ORDERED: oxyCODONE HCL 5 MG TABLET PO PRN (12:07)
[2021-04-10] MEDS ORDERED: ONDANSETRON 4 MG/2 ML VIAL IVPUSH PRN (12:07)
[2021-04-10] MEDS ORDERED: LACTATED RINGERS SOLUTION 1,000 ML IV SCH (12:15)
[2021-04-10 12:35] VITALS: TEMP 97.7
[2021-04-10 14:11] VITALS: BP 148/85; PULSE 82
== END 2021-04-10 14:27 | disposition home or self-care (01) ==
LOC: JASU-SURG 04:28
PROVIDERS: ATTEND Podiatrist
PROC: 0SRP0JZ Replacement of Right Toe Phalangeal Joint with Synthetic Substitute, Open Approach (ICD-10-PCS; principal; 2021-04-10 09:00)
PROC: 0QBQ0ZZ Excision of Right Toe Phalanx, Open Approach (ICD-10-PCS; 2021-04-10 09:00)
DX: M20.41 Other hammer toe(s) (acquired), right foot (principal); M20.5X1 Other deformities of toe(s) (acquired), right foot
CPT/HCPCS: 73630-TC-RT-FY; 88304-TC; 88311-TC

== ENCOUNTER 2021-05-01 04:28 | Day surgery (SDC) | payer OTHER ==
[2021-04-30 10:11] VITALS: BMI 29.7
[2021-05-01] MEDS ORDERED: BUPIVACAINE HCL/PF 0.5% (5MG/ML) 10 ML VIAL ONE (07:17)
[2021-05-01] MEDS ORDERED: LIDOCAINE HCL 1%, 10 MG/ML (20ML VIAL) ONE (07:17)
[2021-05-01] MEDS ORDERED: DEXAMETHASONE SOD PHOSPHATE 4 MG/1 ML VIAL ONE (07:17)
[2021-05-01] MEDS ORDERED: GENTAMICIN SO4 80 MG/2 ML VIAL ONE (07:24)
[2021-05-01] MEDS ORDERED: MIDAZOLAM HCL 2 MG/2 ML SINGLE DOSE VIAL ONE ×2 (07:33)
[2021-05-01] MEDS ORDERED: PROPOFOL 20 ML ONE ×3 (07:33→07:59)
[2021-05-01] MEDS ORDERED: GENTAMICIN SO4 80 MG/2 ML VIAL IVPB ONE (08:02)
[2021-05-01] MEDS ORDERED: ceFAZolin 2 GRAM PREMIX BAG IVPB ONE (08:02)
[2021-05-01] MEDS ORDERED: BUPIVACAINE HCL/PF 0.5% (5MG/ML) 10 ML VIAL IJ ONE ×2 (08:04→08:56)
[2021-05-01] MEDS ORDERED: LIDOCAINE 1% P/F 10 MG/ML VIAL INF ONE (08:04)
[2021-05-01] MEDS ORDERED: DEXAMETHASONE SOD PHOSPHATE 4 MG/1 ML VIAL IVPUSH ONE (08:58)
[2021-05-01] MEDS ORDERED: oxyCODONE HCL 5 MG TABLET PO PRN (09:13)
[2021-05-01] MEDS ORDERED: ONDANSETRON 4 MG/2 ML VIAL IVPUSH PRN (09:13)
[2021-05-01] MEDS ORDERED: LACTATED RINGERS SOLUTION 1,000 ML IV SCH (09:15)
[2021-05-01 10:16] VITALS: TEMP 98.1
[2021-05-01 13:19] VITALS: BP 128/86; PULSE 70
== END 2021-05-01 11:44 | disposition home or self-care (01) ==
LOC: JASU-SURG 04:28
PROVIDERS: ATTEND Podiatrist
PROC: 0L8W0ZZ Division of Left Foot Tendon, Open Approach (ICD-10-PCS; 2021-05-01)
PROC: 0QSP04Z Reposition Left Metatarsal with Internal Fixation Device, Open Approach (ICD-10-PCS; principal; 2021-05-01 07:30)
PROC: 0SRQ0JZ Replacement of Left Toe Phalangeal Joint with Synthetic Substitute, Open Approach (ICD-10-PCS; 2021-05-01 07:30)
DX: M20.12 Hallux valgus (acquired), left foot (principal); M20.42 Other hammer toe(s) (acquired), left foot
CPT/HCPCS: 73630-TC-LT; 88304-TC; 88311-TC

== ENCOUNTER 2021-07-08 22:33 | Emergency (ER) | payer OTHER ==
[2021-07-08 23:03] VITALS: TEMP 98.8; BMI 28.0
[2021-07-09 00:45] LABS: BASO % 1.2 % (0-2.0); EOS % 6.4 % (0-4.5); HEMATOCRIT 39.9 % (32.4-45.2); HEMOGLOBIN 13.4 GM/dL (10.7-15.3); LYMPH % 42.7 % (8-40); MCH 29.1 pg (25.7-33.7); MCHC 33.6 g/dl (32.0-36.0); MEAN CELL VOLUME 86.8 fl (80-96); MONO % 7.4 % (3.8-10.2); NEUT % 42.3 % (42.8-82.8); PLATELET COUNT 207 10^3/uL (134-434); RBC 4.59 M/mm3 (3.60-5.2); RDW 15.1 % (11.6-15.6); WHITE BLOOD COUNT 5.7 K/mm3 (4.0-10.0)
[2021-07-09 01:13] LABS: CALCIUM 8.7 mg/dL (8.5-10.1)
[2021-07-09 01:14] LABS: ALBUMIN 3.4 g/dl (3.4-5.0); BLOOD UREA NITROGEN 11.2 mg/dL (7-18)
[2021-07-09 01:17] LABS: CREATININE 0.9 mg/dL (0.55-1.3)
[2021-07-09 01:18] LABS: BILIRUBIN,TOTAL 0.2 mg/dL (0.2-1); TOT PROT 6.8 g/dl (6.4-8.2)
[2021-07-09] MEDS ORDERED: levETIRAcetam 500 MG TABLET (FP) PO ONE ×2 (03:13→03:41)
[2021-07-09 03:51] VITALS: BP 145/96; PULSE 76
== END 2021-07-09 04:00 | disposition home or self-care (01) ==
LOC: JER 22:33
DX: R56.9 Unspecified convulsions (principal)
CPT/HCPCS: 36415; 70450-TC; 80053; 80177; 85025; 93005; 93010; 99285-25